=== PATIENT | female | born 1985 | race Caucasian/White ===

== ENCOUNTER 2017-03-28 07:54 | Outpatient (CLI) | payer OTHER | END 2017-03-28 07:55 | disposition critical access hospital (66) | LOC: EMS 07:54 | PROVIDERS: ATTEND Surgery | DX: R06.00 Dyspnea, unspecified (principal); R50.9 Fever, unspecified; R11.2 Nausea with vomiting, unspecified; R19.7 Diarrhea, unspecified | CPT/HCPCS: A0425; A0429 ==

== ENCOUNTER 2017-03-28 08:15 | Emergency (ER) | payer OTHER ==
[2017-03-28] MEDS ORDERED: ACETAMINOPHEN 325 MG TABLET PO STA (08:27)
[2017-03-28] MEDS ORDERED: ALBUTEROL NEB 2.5 MG/3 ML INH STA ×2 (08:27→12:00)
[2017-03-28] MEDS ORDERED: ONDANSETRON ODT 4 MG TABLET TL STA (08:27)
--- NOTE | 2017-03-28 08:43 | ED Physician Documentation ---
History of Present Illness - Stated complaint Stated Complaint: SOA - Chief complaint Chief Complaint: General - Additonal information Additional information: hx from pt 31 f to ER with fever myalgias cough soa NVD no sick contacts no travel denies preg Review of Systems Constitutional: reports: Fever, Chills, Myalgias Cardiac: reports: Chest pain / pressure (with cough) Respiratory: reports: Dyspnea, Cough (productive), Wheezing GI: reports: Abdominal Pain (LUQ with cough), Nausea, Vomiting, Diarrhea : denies: Now EGA Endocrine: denies: Easy bruising / bleeding Immunocompromised: denies: Immunocompromised PD PAST MEDICAL HISTORY - Past Medical History Past Medical History: Yes Respiratory: Asthma Neuro: Seizure disorder Musculoskeletal: Other Other Past Medical History: posteral orthostatic tachycardia syndrome. Lenny Danlos - Past Surgical History Past Surgical History: Yes General: Cholecystectomy - Present Medications Home Medications: Ambulatory Orders Medication Instructions Recorded Confirmed Gabapentin 1 tab PO DAILY 12/13/16 03/28/17 Trazodone HCl 1 tab PO QPM 12/13/16 03/28/17 Albuterol Sulfate [Proair Hfa 2 puffs INH Q4H PRN #1 inhaler 03/28/17 Inhaler] Azithromycin [Zithromax] 250 mg PO DAILY #6 tablet 03/28/17 Benzonatate [Tessalon] 100 mg PO TID PRN #20 capsule 03/28/17 guaiFENesin/DEXTROMETHORPHAN 10 ml PO Q6H PRN #120 ml 03/28/17 [Robitussin Dm] - Allergies Allergies/Adverse Reactions: Allergies Allergy/AdvReac Type Severity Reaction Status Date / Time ibuprofen Allergy Edema Verified 12/13/16 19:48 peanut Allergy Anaphylaxis Verified 03/28/17 08:23 pineapple Allergy Rash Verified 03/28/17 08:23 - Social History Does the pt smoke?: Yes Smoking Status: Current every day smoker Does the pt drink ETOH?: No Does the pt have substance abuse?: No - Immunizations Immunizations are current?: Yes - POLST Patient has POLST: No PD ED PE NORMAL - Vitals Vital signs reviewed: Yes - General General: Alert and oriented X 3 - HEENT HEENT: PERRL, Ears normal (mostly occluded with cerumen vis portions benign), Pharynx benign - Neck Neck: Supple, no meningeal sign - Cardiac Cardiac: RRR - Respiratory Respiratory: Other (ronchi and wheeze on L) - Abdomen Abdomen: Soft, Other (mild LUQ TTP s peritoneal signs) - Derm Derm: Normal color - Extremities Extremities: No edema, No calf tenderness / cord - Neuro Neuro: Alert and oriented X 3 Results - Vitals Vitals: Vital Signs - 24 hr 03/28/17 03/28/17 03/28/17 08:19 08:45 09:21 Temperature 36.7 C 36.6 C Heart Rate 103 H 84 96 Respiratory 18 20 18 Rate Blood Pressure 109/91 H 95/63 O2 Saturation 96 98 03/28/17 03/28/17 10:15 11:58 Temperature 36.9 C Heart Rate 103 H 84 Respiratory 18 20 Rate Blood Pressure 116/76 120/78 O2 Saturation 99 98 Oxygen O2 Source Room air - Labs Labs: Laboratory Tests 03/28/17 08:45 Influenza A (Rapid) Negative Influenza B (Rapid) Negative Influenza Types A,B Ag - - Rads (name of study) CXR Radiology: See rad report (NACPD) PD MEDICAL DECISION MAKING - ED course ED course: neg flu neg CXR but on rpt exam still with focal ronchi mid L lung - clincally has pna so will tx for same was better after neb but long wait in ED today and sx returned will give another neb recognise that pt has connective tissue dz and is at risk for dissection ect but this CP is clearly related to her URI sx and I do not think she needs a CTA Departure - Departure Disposition: 01 Home, Self Care Clinical Impression: Pneumonia Qualifiers: Pneumonia type: due to unspecified organism Laterality: left Lung location: upper lobe of lung Qualified Code(s): J18.1 - Lobar pneumonia, unspecified organism Condition: Good Instructions: ED Pneumonia Adult Follow-Up: Joyce Gonzales MD [Emergency Provider] - Prescriptions: Albuterol Sulfate [Proair Hfa Inhaler] 2 puffs INH Q4H PRN #1 inhaler PRN Reason: Shortness Of Air/Wheezing Azithromycin [Zithromax] 250 mg PO DAILY #6 tablet Benzonatate [Tessalon] 100 mg PO TID PRN #20 capsule PRN Reason: to ease cough guaiFENesin/DEXTROMETHORPHAN [Robitussin Dm] 10 ml PO Q6H PRN #120 ml PRN Reason: Cough Comments: The flu swabs were negative The chest xray does not show pneumonia but on exam you certainly sound like you have pneumonia so I have prescribed antibiotics I also prescribed cough medication and an inhaler You can take tylenol for pain and fever Please follow up with your PMD if not better by Sunday Return to the ER sooner if worse Forms: Activity restrictions
--- NOTE | 2017-03-28 08:56 | XRAY Report ---
EXAM: CHEST RADIOGRAPHY EXAM DATE: 03/28/2017 08:47 AM. CLINICAL HISTORY: Fever, cough. COMPARISON: None. TECHNIQUE: 2 views. FINDINGS: Lungs/Pleura: No focal opacities evident. No pleural effusion. No pneumothorax. Normal volumes. Mediastinum: Heart and mediastinal contours are unremarkable. Other: None. IMPRESSION: 1. Normal 2-view chest radiography. 2. No consolidation evident. [facility] Referring Provider Line: [phone] SITE ID: [id number]
[2017-03-28 11:59] VITALS: BP 120/78
[2017-03-28] MEDS ORDERED: AZITHROMYCIN 100 MG/5 ML SYRINGE PO STA (12:00)
[2017-03-28] MEDS ORDERED: guaiFENesin/DEXTROMETHORPHAN 10 ML UDC PO STA (12:00)
[2017-03-28] MEDS ORDERED: BENZONATATE 100 MG CAPSULE PO STA (12:00)
[2017-03-28] MEDS ORDERED: AZITHROMYCIN 250 MG TABLET PO STA (12:00)
== END 2017-03-28 12:27 | disposition home or self-care (01) ==
LOC: EDUNIT# → EDBD → ED 08:15
DX: J18.9 Pneumonia, unspecified organism (principal); J45.909 Unspecified asthma, uncomplicated; Q79.6 Ehlers-Danlos syndromes; F17.200 Nicotine dependence, unspecified, uncomplicated
CPT/HCPCS: 71046; 87275; 87276; 94640; 94664; 99283; A9270; J7613; Q0162

== ENCOUNTER 2017-05-27 19:28 | Outpatient (CLI) | payer OTHER | END 2017-05-27 19:29 | disposition critical access hospital (66) | LOC: EMS 19:28 → EDUNIT# 19:28 → EMS 19:29 | PROVIDERS: ATTEND Surgery | DX: R07.9 Chest pain, unspecified (principal) | CPT/HCPCS: A0425; A0427 ==

== ENCOUNTER 2017-05-27 20:07 | Emergency (ER) | payer OTHER ==
[2017-05-27] MEDS ORDERED: MORPHINE 2 MG/ML SYRINGE IVP STA ×2 (20:24→21:31)
--- NOTE | 2017-05-27 20:36 | ED Physician Documentation ---
PD HPI CHEST PAIN - Stated complaint Stated Complaint: CP - Chief complaint Chief Complaint: Cardiac - History obtained from History obtained from: Patient - History of Present Illness Timing - onset: Other (31-year-old with history of Lenny Danlos syndrome and some other vascular issues such as carotid stenosis presents with chest pain that radiates to the left shoulder and back since 8 AM this morning that started at rest. It is severe at times. She is short of breath and nauseous with it. She had a similar episode about 3 months ago that was much milder and self-limited.) Review of Systems Ten Systems: 10 systems reviewed and negative Constitutional: denies: Fever, Chills Nose: denies: Rhinorrhea / runny nose, Congestion Throat: denies: Sore throat Cardiac: reports: Chest pain / pressure. denies: Palpitations, Pedal edema, Calf pain Respiratory: reports: Dyspnea. denies: Cough, Hemoptysis, Wheezing PD PAST MEDICAL HISTORY - Past Medical History Respiratory: Asthma Neuro: Seizure disorder Musculoskeletal: Other Other Past Medical History: Polycythemia, PID, Carotid stenosis - Past Surgical History Past Surgical History: Yes General: Cholecystectomy - Present Medications Home Medications: Ambulatory Orders Medication Instructions Recorded Confirmed Gabapentin 1,600 mg PO BID 12/13/16 03/28/17 Trazodone HCl 100 tab PO QPM 12/13/16 03/28/17 Albuterol Sulfate [Proair Hfa 2 puffs INH Q4H PRN #1 inhaler 03/28/17 Inhaler] Oxycodone HCl/Acetaminophen 1 - 2 tab PO Q4H PRN #10 tablet 05/27/17 [Percocet 5-325 mg Tablet] - Allergies Allergies/Adverse Reactions: Allergies Allergy/AdvReac Type Severity Reaction Status Date / Time hydrocodone Allergy Unknown Verified 05/27/17 20:22 ibuprofen Allergy Edema Verified 12/13/16 19:48 metronidazole Allergy Unknown Verified 05/27/17 20:22 peanut Allergy Anaphylaxis Verified 03/28/17 08:23 pineapple Allergy Rash Verified 03/28/17 08:23 - Social History Does the pt smoke?: Yes Smoking Status: Current every day smoker Does the pt drink ETOH?: No Does the pt have substance abuse?: No - Family History Family history: reports: Non contributory - Immunizations Immunizations are current?: Yes - POLST Patient has POLST: No PD ED PE NORMAL - Vitals Vital signs reviewed: Yes - General General: Alert and oriented X 3, Other (She appears uncomfortable) - HEENT HEENT: PERRL, EOMI - Neck Neck: Supple, no meningeal sign, No bony TTP - Cardiac Cardiac: RRR, No murmur, Other (She is tender to the left chest wall) - Respiratory Respiratory: No respiratory distress, Clear bilaterally - Abdomen Abdomen: Normal bowel sounds, Soft, Non tender - Back Back: No CVA TTP, No spinal TTP - Derm Derm: Normal color, Warm and dry - Extremities Extremities: No edema, No calf tenderness / cord - Neuro Neuro: Alert and oriented X 3, Normal speech - Psych Psych: Normal mood, Normal affect Results - Vitals Vitals: Vital Signs - 24 hr 05/27/17 05/27/17 20:07 20:30 Temperature 36.8 C Heart Rate 90 Respiratory 16 Rate Blood Pressure 103/76 Blood Pressure 115/84 H [Left] Blood Pressure 116/75 [Right] O2 Saturation 99 Oxygen O2 Source Room air - EKG (time done) 2009 Rate: Rate (enter#) (95) Rhythm: NSR [place]: Normal Intervals: Normal [place] QRS: Normal Ischemia: Normal ST segments Computer interpretation: Agree with computer - Labs Labs: Laboratory Tests 05/27/17 05/27/17 05/27/17 20:25 20:25 21:00 WBC 9.8 RBC 4.67 Hgb 14.8 Hct 42.5 MCV 90.9 MCH 31.7 H MCHC 34.9 RDW 11.7 L Plt Count 214 MPV 8.1 Neut # 6.2 Lymph # 2.9 [place] # 0.4 Eos # 0.1 Baso # 0.1 Absolute Nucleated RBC 0.01 Nucleated RBC % 0.1 D-Dimer Sodium Potassium Chloride Carbon Dioxide Anion Gap BUN Creatinine Estimated GFR (MDRD) Glucose Calcium Total Bilirubin AST ALT Alkaline Phosphatase Troponin I Total Protein Albumin Globulin Albumin/Globulin Ratio Lipase Urine Color YELLOW Urine Clarity CLEAR Urine pH 7.0 Ur Specific [place] 1.010 Urine Protein NEGATIVE Urine Glucose (UA) NEGATIVE Urine Ketones NEGATIVE Urine Occult Blood NEGATIVE Urine Nitrite NEGATIVE Urine Bilirubin NEGATIVE Urine Urobilinogen 0.2 (NORMAL) Ur Leukocyte Esterase NEGATIVE Ur Microscopic Review NOT INDICATED Urine Culture Comments NOT INDICATED Urine HCG, Qual NEGATIVE Urine Opiates Screen NEGATIVE Ur Oxycodone Screen NEGATIVE Urine Methadone Screen NEGATIVE Ur Propoxyphene Screen NEGATIVE Ur Barbiturates Screen NEGATIVE Ur Tricyclics Screen NEGATIVE Ur Phencyclidine Scrn NEGATIVE Ur Amphetamine Screen NEGATIVE U Methamphetamines Scrn NEGATIVE U Benzodiazepines Scrn NEGATIVE Urine Cocaine Screen NEGATIVE U Cannabinoids Screen POSITIVE H 05/27/17 05/27/17 05/27/17 21:00 21:00 21:00 WBC RBC Hgb Hct MCV MCH MCHC RDW Plt Count MPV Neut # Lymph # [place] # Eos # Baso # Absolute Nucleated RBC Nucleated RBC % D-Dimer < 200.0 L Sodium 139 Potassium 3.2 L Chloride 106 Carbon Dioxide 24 Anion Gap 9.0 BUN 7 Creatinine 0.6 Estimated GFR (MDRD) 117 Glucose 106 H Calcium 9.2 Total Bilirubin 0.8 AST 20 ALT 14 Alkaline Phosphatase 38 L Troponin I < 0.04 Total Protein 7.1 Albumin 4.3 Globulin 2.8 Albumin/Globulin Ratio 1.5 Lipase 34 Urine Color Urine Clarity Urine pH Ur Specific [place] Urine Protein Urine Glucose (UA) Urine Ketones Urine Occult Blood Urine Nitrite Urine Bilirubin Urine Urobilinogen Ur Leukocyte Esterase Ur Microscopic Review Urine Culture Comments Urine HCG, Qual Urine Opiates Screen Ur Oxycodone Screen Urine Methadone Screen Ur Propoxyphene Screen Ur Barbiturates Screen Ur Tricyclics Screen Ur Phencyclidine Scrn Ur Amphetamine Screen U Methamphetamines Scrn U Benzodiazepines Scrn Urine Cocaine Screen U Cannabinoids Screen - Rads (name of study) 2v chest Radiology: EMP read contemporaneously (Normal) PD MEDICAL DECISION MAKING - ED course ED course: This is a 31-year-old with a history of either stainless syndrome as well as some other vascular issues. She has extensive records with her. Her EKG is completely normal. The history of Lenny-Danlos is still somewhat concerning for aortic dissection though, bilateral upper extremity blood pressures were normal. She will also be risk stratified with a upright chest x-ray and d- dimer. Which were also normal. NSAIDS held given ibu allergy Departure - Departure Disposition: 01 Home, Self Care Clinical Impression: Chest wall pain Condition: Good Record reviewed to determine appropriate education?: Yes Instructions: ED Chest Pain Costochondritis Prescriptions: Oxycodone HCl/Acetaminophen [Percocet 5-325 mg Tablet] 1 - 2 tab PO Q4H PRN #10 tablet PRN Reason: Pain Comments: Call your doctor to arrange a follow-up appointment, make the next available appointment. In the interim, return anytime if worse or if new symptoms develop. Your blood pressure was elevated today on check into the emergency department. This does not mean that you have hypertension, it is a common phenomenon to come to the emergency department and have elevated blood pressure. I recommend that you see your primary care physician within the week to have it rechecked when you are feeling better.
[2017-05-27 20:37] LABS: BILIRUBIN,URINE NEGATIVE (NEGATIVE); GLUCOSE, URINE (UA) NEGATIVE (NEGATIVE); KETONES,URINE (UA) NEGATIVE (NEGATIVE); LEUKOCYTE ESTERASE, URINE NEGATIVE (NEGATIVE); NITRITE,URINE NEGATIVE (NEGATIVE); OCCULT BLOOD,URINE NEGATIVE (NEGATIVE); PROTEIN,URINE NEGATIVE (NEGATIVE); UROBILINOGEN,URINE 0.2 (NORMAL) E.U./dL (NORMAL)
[2017-05-27 20:39] LABS: MUDS CUTOFF CONCENTRATIONS CUTOFF CONC BELOW:
[2017-05-27 20:41] LABS: CLARITY,URINE CLEAR (CLEAR); HCG UR QUAL NEGATIVE
[2017-05-27 20:50] LABS: AMPHETAMINE SCREEN,URINE NEGATIVE (NEGATIVE); BENZODIAZEPINES SCREEN, URINE NEGATIVE (NEGATIVE); COCAINE SCREEN URINE NEGATIVE (NEGATIVE); METHADONE SCREEN, URINE NEGATIVE (NEGATIVE); METHAMPHETAMINES SCREEN, URINE NEGATIVE (NEGATIVE); OPIATE SCREEN, URINE NEGATIVE (NEGATIVE); OXYCODONE SCREEN, URINE NEGATIVE (NEGATIVE); PROPOXYPHENE SCREEN, URINE NEGATIVE (NEGATIVE); TRICYCLIC ANTIDEPRESSANT,URINE NEGATIVE (NEGATIVE)
--- NOTE | 2017-05-27 21:00 | XRAY Report ---
EXAM: CHEST RADIOGRAPHY EXAM DATE: 05/27/2017 08:29 PM. CLINICAL HISTORY: Chest pain. COMPARISON: 03/28/2017 chest x-ray. TECHNIQUE: 2 views. FINDINGS: Lungs/Pleura: No focal opacities evident. No pleural effusion. No pneumothorax. Normal volumes. Mediastinum: Heart and mediastinal contours are unremarkable. Other: None. IMPRESSION: Normal 2-view chest radiography. [facility] Referring Provider Line: [phone] SITE ID: [id number]
[2017-05-27 21:11] LABS: BASOPHILS # (AUTO) 0.1 10^3/uL (0.0-0.1); BASOPHILS % (AUTO) 0.9 %; EOSINOPHILS # (AUTO) 0.1 10^3/uL (0.0-0.7); EOSINOPHILS % (AUTO) 0.9 %; HGB - HEMOGLOBIN 14.8 g/dL (12.0-16.0); LYMPHOCYTES # (AUTO) 2.9 10^3/uL (1.5-3.5); MEAN CORPUSCULAR HEMOGLOBIN 31.7 pg (27.0-31.0); MEAN CORPUSCULAR HGB CONC 34.9 g/dL (32.0-36.0); MEAN CORPUSCULAR VOLUME 90.9 fL (81.0-99.0); MEAN PLATELET VOLUME 8.1 fL (7.9-10.8); MONOCYTES # (AUTO) 0.4 10^3/uL (0.0-1.0); MONOCYTES % (AUTO) 4.3 %; NEUTROPHILS # (AUTO) 6.2 10^3/uL (1.5-6.6); NEUTROPHILS % (AUTO) 63.9 %; PLT - PLATELET COUNT 214 10^3/uL (130-450); RED BLOOD COUNT 4.67 10^6/uL (4.20-5.40); RED CELL DISTRIBUTION WIDTH 11.7 % (12.0-15.0); WHITE BLOOD COUNT 9.8 x10^3/uL (4.8-10.8)
[2017-05-27 21:21] LABS: ALBUMIN 4.3 g/dL (3.2-5.5); ALBUMIN/GLOBULIN RATIO 1.5 (1.0-2.2); BILIRUBIN,TOTAL 0.8 mg/dL (0.2-1.0); CALCIUM 9.2 mg/dL (8.5-10.3); CREATININE 0.6 mg/dL (0.4-1.0); TOTAL PROTEIN 7.1 g/dL (6.7-8.2)
[2017-05-27] MEDS ORDERED: KETOROLAC 60 MG/2 ML VIAL IVP STA (21:30)
[2017-05-27 21:56] VITALS: BP 111/78
== END 2017-05-27 21:56 | disposition home or self-care (01) ==
LOC: EDUNIT# → ED 20:07
DX: R07.9 Chest pain, unspecified (principal); R03.0 Elevated blood-pressure reading, without diagnosis of hypertension; Q79.6 Ehlers-Danlos syndromes; I65.29 Occlusion and stenosis of unspecified carotid artery; F17.200 Nicotine dependence, unspecified, uncomplicated
CPT/HCPCS: 36415; 71046; 80053; 80306; 81003; 81025; 83690; 84484; 85025; 85379; 93005; 96374; 96376; 99284; 99285; J2270; 81001; 87086

== ENCOUNTER 2017-05-28 21:01 | Emergency (ER) | payer OTHER ==
[2017-05-28 21:11] VITALS: BP 128/74
[2017-05-28 22:04] LABS: BASOPHILS # (AUTO) 0.1 10^3/uL (0.0-0.1); BASOPHILS % (AUTO) 0.7 %; EOSINOPHILS # (AUTO) 0.2 10^3/uL (0.0-0.7); EOSINOPHILS % (AUTO) 2.3 %; HGB - HEMOGLOBIN 15.2 g/dL (12.0-16.0); LYMPHOCYTES # (AUTO) 3.3 10^3/uL (1.5-3.5); MEAN CORPUSCULAR HGB CONC 34.7 g/dL (32.0-36.0); MONOCYTES # (AUTO) 0.6 10^3/uL (0.0-1.0); MONOCYTES % (AUTO) 6.4 %; NEUTROPHILS # (AUTO) 4.7 10^3/uL (1.5-6.6); NEUTROPHILS % (AUTO) 53.6 %; PLT - PLATELET COUNT 210 10^3/uL (130-450); RED BLOOD COUNT 4.75 10^6/uL (4.20-5.40); WHITE BLOOD COUNT 8.8 x10^3/uL (4.8-10.8)
[2017-05-28 22:20] LABS: ALBUMIN 4.2 g/dL (3.2-5.5); ALBUMIN/GLOBULIN RATIO 1.4 (1.0-2.2); BILIRUBIN,TOTAL 0.6 mg/dL (0.2-1.0); CALCIUM 8.8 mg/dL (8.5-10.3); CREATININE 0.7 mg/dL (0.4-1.0); TOTAL PROTEIN 7.2 g/dL (6.7-8.2)
== END 2017-05-29 00:15 | disposition left against medical advice (07) ==
LOC: EDUNIT# 21:01 → ED 21:01
DX: Z53.21 Procedure and treatment not carried out due to patient leaving prior to being seen by health care provider (principal)
CPT/HCPCS: 36415; 80053; 83690; 85025

== ENCOUNTER 2017-06-05 16:37 | Outpatient (CLI) | payer OTHER | END 2017-06-05 16:38 | disposition critical access hospital (66) | LOC: EMS 16:37 | PROVIDERS: ATTEND Surgery | DX: R07.89 Other chest pain (principal); R00.0 Tachycardia, unspecified; R42 Dizziness and giddiness | CPT/HCPCS: A0425; A0427 ==

== ENCOUNTER 2017-06-05 17:20 | Emergency (ER) | payer OTHER ==
[2017-06-05 17:51] LABS: BASOPHILS # (AUTO) 0.1 10^3/uL (0.0-0.1); EOSINOPHILS # (AUTO) 0.1 10^3/uL (0.0-0.7); EOSINOPHILS % (AUTO) 0.9 %; HGB - HEMOGLOBIN 15.8 g/dL (12.0-16.0); LYMPHOCYTES # (AUTO) 2.5 10^3/uL (1.5-3.5); LYMPHOCYTES % (AUTO) 26.1 %; MEAN CORPUSCULAR HEMOGLOBIN 31.5 pg (27.0-31.0); MEAN CORPUSCULAR HGB CONC 34.8 g/dL (32.0-36.0); MEAN CORPUSCULAR VOLUME 90.6 fL (81.0-99.0); MEAN PLATELET VOLUME 8.2 fL (7.9-10.8); MONOCYTES # (AUTO) 0.4 10^3/uL (0.0-1.0); MONOCYTES % (AUTO) 4.1 %; NEUTROPHILS # (AUTO) 6.5 10^3/uL (1.5-6.6); NEUTROPHILS % (AUTO) 67.9 %; PLT - PLATELET COUNT 265 10^3/uL (130-450); RED BLOOD COUNT 5.01 10^6/uL (4.20-5.40); RED CELL DISTRIBUTION WIDTH 11.7 % (12.0-15.0); WHITE BLOOD COUNT 9.6 x10^3/uL (4.8-10.8)
[2017-06-05 17:55] LABS: VBG PH 7.578 (7.31-7.41); VBG PO2 26.1 mmHg (25-47)
[2017-06-05 17:56] LABS: VBG BASE EXCESS 2.1 mmol/L (-2 - +2); VBG TOTAL CO2 22.6 mmol/L (24-29)
--- NOTE | 2017-06-05 18:05 | ED Physician Documentation ---
PD HPI CHEST PAIN - Stated complaint Stated Complaint: CP - Chief complaint Chief Complaint: Cardiac - History obtained from History obtained from: Patient, EMS - History of Present Illness Timing - onset: Today (She had been to the [employer] [employer] [facility] and she is planned for a Holter monitor. She has pots and a recent diagnosis of costochondritis. She started to feel very odd and started to have chest pressure and then had a brief episode of syncope followed by some shaking which may have been seizure. She does have a history of seizure disorder. She feels back to normal, other than just feeling strange.) Review of Systems Constitutional: reports: Fatigue, Sweats. denies: Fever, Chills Nose: denies: Rhinorrhea / runny nose, Congestion Cardiac: reports: Chest pain / pressure. denies: Palpitations, Pedal edema, Calf pain Respiratory: denies: Dyspnea, Cough PD PAST MEDICAL HISTORY - Past Medical History Past Medical History: Yes Respiratory: Asthma Neuro: Seizure disorder Psych: Depression Musculoskeletal: Other Other Past Medical History: POTS, EDS, carotid stenosis, PID, hypokalemia - Past Surgical History Past Surgical History: Yes General: Cholecystectomy - Present Medications Home Medications: Ambulatory Orders Medication Instructions Recorded Confirmed Gabapentin 1,600 mg PO BID 12/13/16 03/28/17 Trazodone HCl 100 tab PO QPM 12/13/16 06/05/17 Albuterol Sulfate [Proair Hfa 2 puffs INH Q4H PRN #1 inhaler 03/28/17 Inhaler] Fluticasone 44 Mcg [Flovent] 1 puffs INH BID 06/05/17 06/05/17 Levonorgestrel [Mirena] 1 each IY 06/05/17 Naproxen [Naprosyn] 500 mg PO BID 06/05/17 06/05/17 Potassium Chloride [Klor-Con M20] 20 meq PO DAILY 06/05/17 06/05/17 hydrOXYzine PAMOATE [Vistaril] 25 - 50 mg PO QPM 06/05/17 06/05/17 - Allergies Allergies/Adverse Reactions: Allergies Allergy/AdvReac Type Severity Reaction Status Date / Time hydrocodone Allergy Unknown Verified 06/05/17 17:54 ibuprofen Allergy Edema Verified 06/05/17 17:54 metronidazole Allergy Unknown Verified 06/05/17 17:54 peanut Allergy Anaphylaxis Verified 06/05/17 17:54 pineapple Allergy Rash Verified 06/05/17 17:54 - Social History Does the pt smoke?: Yes Smoking Status: Current every day smoker Does the pt drink ETOH?: No Does the pt have substance abuse?: No - Immunizations Immunizations are current?: Yes - POLST Patient has POLST: No PD ED PE NORMAL - Vitals Vital signs reviewed: Yes - General General: Alert and oriented X 3, No acute distress - HEENT HEENT: PERRL, EOMI - Neck Neck: Supple, no meningeal sign, No bony TTP - Cardiac Cardiac: RRR, No murmur - Respiratory Respiratory: No respiratory distress, Clear bilaterally - Abdomen Abdomen: Non tender - Extremities Extremities: No edema, No calf tenderness / cord - Neuro Neuro: Alert and oriented X 3, Normal speech Eye Opening: Spontaneous Motor: Obeys Commands Verbal: Oriented GCS Score: 15 - Psych Psych: Normal mood, Normal affect Results - Vitals Vitals: Vital Signs - 24 hr 06/05/17 06/05/17 06/05/17 17:24 17:59 18:30 Temperature 36.6 C Heart Rate 101 H 84 Respiratory 32 H 18 Rate Blood Pressure 116/69 111/71 Blood Pressure 103/78 [Left] O2 Saturation 100 98 06/05/17 06/05/17 06/06/17 19:00 23:00 05:36 Temperature Heart Rate 85 88 78 Respiratory 18 16 16 Rate Blood Pressure 112/83 H 115/68 118/66 Blood Pressure [Left] O2 Saturation 95 100 99 06/06/17 12:25 Temperature Heart Rate 76 Respiratory 15 Rate Blood Pressure 111/75 Blood Pressure [Left] O2 Saturation 99 Oxygen O2 Source Room air - EKG (time done) 1727 Rate: Rate (enter#) (86) Rhythm: NSR [place]: Normal Intervals: Normal [place] QRS: Normal Ischemia: Normal ST segments Computer interpretation: Agree with computer - Labs Labs: Laboratory Tests 06/05/17 06/05/17 06/05/17 17:35 17:35 17:45 WBC 9.6 RBC 5.01 Hgb 15.8 Hct 45.4 MCV 90.6 MCH 31.5 H MCHC 34.8 RDW 11.7 L Plt Count 265 MPV 8.2 Neut # 6.5 Lymph # 2.5 [place] # 0.4 Eos # 0.1 Baso # 0.1 Absolute Nucleated RBC 0.01 Nucleated RBC % 0.1 VBG pH 7.578 H VBG pCO2 24.0 L VBG pO2 26.1 VBG HCO3 21.9 L VBG Total CO2 22.6 L VBG O2 Saturation 68.4 VBG Base Excess 2.1 H Sodium 138 Potassium 3.5 Chloride 105 Carbon Dioxide 22 Anion Gap 11.0 BUN 10 Creatinine 0.7 Estimated GFR (MDRD) 98 Glucose 103 H Calcium 9.1 Total Bilirubin 0.7 AST 23 ALT 18 Alkaline Phosphatase 41 L Troponin I Total Protein 7.6 Albumin 4.4 Globulin 3.2 Albumin/Globulin Ratio 1.4 Lipase 74 H Urine Color Urine Clarity Urine pH Ur Specific [place] Urine Protein Urine Glucose (UA) Urine Ketones Urine Occult Blood Urine Nitrite Urine Bilirubin Urine Urobilinogen Ur Leukocyte Esterase Ur Microscopic Review Urine Culture Comments Urine HCG, Qual Urine Opiates Screen Ur Oxycodone Screen Urine Methadone Screen Ur Propoxyphene Screen Ur Barbiturates Screen Ur Tricyclics Screen Ur Phencyclidine Scrn Ur Amphetamine Screen U Methamphetamines Scrn U Benzodiazepines Scrn Urine Cocaine Screen U Cannabinoids Screen Ethyl Alcohol 06/05/17 06/05/17 06/05/17 17:45 17:45 18:14 WBC RBC Hgb Hct MCV MCH MCHC RDW Plt Count MPV Neut # Lymph # [place] # Eos # Baso # Absolute Nucleated RBC Nucleated RBC % VBG pH VBG pCO2 VBG pO2 VBG HCO3 VBG Total CO2 VBG O2 Saturation VBG Base Excess Sodium Potassium Chloride Carbon Dioxide Anion Gap BUN Creatinine Estimated GFR (MDRD) Glucose Calcium Total Bilirubin AST ALT Alkaline Phosphatase Troponin I < 0.04 Total Protein Albumin Globulin Albumin/Globulin Ratio Lipase Urine Color YELLOW Urine Clarity CLEAR Urine pH 7.5 Ur Specific [place] 1.010 Urine Protein NEGATIVE Urine Glucose (UA) NEGATIVE Urine Ketones NEGATIVE Urine Occult Blood NEGATIVE Urine Nitrite NEGATIVE Urine Bilirubin NEGATIVE Urine Urobilinogen 0.2 (NORMAL) Ur Leukocyte Esterase NEGATIVE Ur Microscopic Review NOT INDICATED Urine Culture Comments NOT INDICATED Urine HCG, Qual NEGATIVE Urine Opiates Screen Ur Oxycodone Screen Urine Methadone Screen Ur Propoxyphene Screen Ur Barbiturates Screen Ur Tricyclics Screen Ur Phencyclidine Scrn Ur Amphetamine Screen U Methamphetamines Scrn U Benzodiazepines Scrn Urine Cocaine Screen U Cannabinoids Screen Ethyl Alcohol < 5.0 06/05/17 Unknown WBC RBC Hgb Hct MCV MCH MCHC RDW Plt Count MPV Neut # Lymph # [place] # Eos # Baso # Absolute Nucleated RBC Nucleated RBC % VBG pH VBG pCO2 VBG pO2 VBG HCO3 VBG Total CO2 VBG O2 Saturation VBG Base Excess Sodium Potassium Chloride Carbon Dioxide Anion Gap BUN Creatinine Estimated GFR (MDRD) Glucose Calcium Total Bilirubin AST ALT Alkaline Phosphatase Troponin I Total Protein Albumin Globulin Albumin/Globulin Ratio Lipase Urine Color Urine Clarity Urine pH Ur Specific [place] Urine Protein Urine Glucose (UA) Urine Ketones Urine Occult Blood Urine Nitrite Urine Bilirubin Urine Urobilinogen Ur Leukocyte Esterase Ur Microscopic Review Urine Culture Comments Urine HCG, Qual Urine Opiates Screen NEGATIVE Ur Oxycodone Screen NEGATIVE Urine Methadone Screen NEGATIVE Ur Propoxyphene Screen NEGATIVE Ur Barbiturates Screen NEGATIVE Ur Tricyclics Screen NEGATIVE Ur Phencyclidine Scrn NEGATIVE Ur Amphetamine Screen NEGATIVE U Methamphetamines Scrn NEGATIVE U Benzodiazepines Scrn NEGATIVE Urine Cocaine Screen NEGATIVE U Cannabinoids Screen POSITIVE H Ethyl Alcohol PD MEDICAL DECISION MAKING - ED course ED course: 31-year-old with an episode that frankly sounds mostly psychiatric to me which is corroborated by signs of hyperventilation on blood gas. On reevaluation at 6 :45 PM she confided to me that she was having suicidal ideation for the last 2 weeks and has no support system here and would like to explore hospitalization for this. Update, June 06, 2017 at 1:45 PM: Social work has been working on the case and she was accepted to [facility] in [place] by Dr. Winkler. [place] were completed. Departure - Departure Disposition: 65 Psych Hosp/Unit DC/Xfer Clinical Impression: Chest wall pain Depression Qualifiers: Depression Type: major depressive disorder Major depression recurrence: recurrent Active/Remission status: currently active Major depression episode severity: severe Psychotic features: without psychotic features Qualified Code(s ): F33.2 - Major depressive disorder, recurrent severe without psychotic features Condition: Stable Forms: Activity restrictions
[2017-06-05 18:12] LABS: ALBUMIN 4.4 g/dL (3.2-5.5); ALBUMIN/GLOBULIN RATIO 1.4 (1.0-2.2); BILIRUBIN,TOTAL 0.7 mg/dL (0.2-1.0); CALCIUM 9.1 mg/dL (8.5-10.3); CREATININE 0.7 mg/dL (0.4-1.0); TOTAL PROTEIN 7.6 g/dL (6.7-8.2)
[2017-06-05 18:26] LABS: BILIRUBIN,URINE NEGATIVE (NEGATIVE); GLUCOSE, URINE (UA) NEGATIVE (NEGATIVE); KETONES,URINE (UA) NEGATIVE (NEGATIVE); LEUKOCYTE ESTERASE, URINE NEGATIVE (NEGATIVE); NITRITE,URINE NEGATIVE (NEGATIVE); OCCULT BLOOD,URINE NEGATIVE (NEGATIVE); PH,URINE 7.5 PH (5.0-7.5); PROTEIN,URINE NEGATIVE (NEGATIVE); UROBILINOGEN,URINE 0.2 (NORMAL) E.U./dL (NORMAL)
[2017-06-05 18:29] LABS: CLARITY,URINE CLEAR (CLEAR); HCG UR QUAL NEGATIVE
[2017-06-05] MEDS ORDERED: LORazepam 2 MG/ML VIAL IVP STA (18:47)
[2017-06-05] MEDS ORDERED: GABAPENTIN 100 MG CAPSULE PO STA (19:10)
[2017-06-05 19:26] LABS: MUDS CUTOFF CONCENTRATIONS CUTOFF CONC BELOW:
[2017-06-05 19:27] LABS: AMPHETAMINE SCREEN,URINE NEGATIVE (NEGATIVE); BENZODIAZEPINES SCREEN, URINE NEGATIVE (NEGATIVE); COCAINE SCREEN URINE NEGATIVE (NEGATIVE); METHADONE SCREEN, URINE NEGATIVE (NEGATIVE); METHAMPHETAMINES SCREEN, URINE NEGATIVE (NEGATIVE); OPIATE SCREEN, URINE NEGATIVE (NEGATIVE); OXYCODONE SCREEN, URINE NEGATIVE (NEGATIVE); PROPOXYPHENE SCREEN, URINE NEGATIVE (NEGATIVE); TRICYCLIC ANTIDEPRESSANT,URINE NEGATIVE (NEGATIVE)
[2017-06-05] MEDS ORDERED: LORazepam 0.5 MG TABLET PO STA (21:26)
[2017-06-05] MEDS ORDERED: traZODone 50 MG TABLET PO STA (21:39)
--- NOTE | 2017-06-06 07:54 | ED Physician Documentation ---
History of Present Illness - Stated complaint Stated Complaint: CP - Chief complaint Chief Complaint: Cardiac PD PAST MEDICAL HISTORY - Past Medical History Past Medical History: Yes Respiratory: Asthma Neuro: Seizure disorder Psych: Depression Musculoskeletal: Other Other Past Medical History: POTS, EDS, carotid stenosis, PID, hypokalemia - Past Surgical History Past Surgical History: Yes General: Cholecystectomy - Present Medications Home Medications: Ambulatory Orders Medication Instructions Recorded Confirmed Gabapentin 1,600 mg PO BID 12/13/16 03/28/17 Trazodone HCl 100 tab PO QPM 12/13/16 06/05/17 Albuterol Sulfate [Proair Hfa 2 puffs INH Q4H PRN #1 inhaler 03/28/17 Inhaler] Fluticasone 44 Mcg [Flovent] 1 puffs INH BID 06/05/17 06/05/17 Levonorgestrel [Mirena] 1 each IY 06/05/17 Naproxen [Naprosyn] 500 mg PO BID 06/05/17 06/05/17 Potassium Chloride [Klor-Con M20] 20 meq PO DAILY 06/05/17 06/05/17 hydrOXYzine PAMOATE [Vistaril] 25 - 50 mg PO QPM 06/05/17 06/05/17 - Allergies Allergies/Adverse Reactions: Allergies Allergy/AdvReac Type Severity Reaction Status Date / Time hydrocodone Allergy Unknown Verified 06/05/17 17:54 ibuprofen Allergy Edema Verified 06/05/17 17:54 metronidazole Allergy Unknown Verified 06/05/17 17:54 peanut Allergy Anaphylaxis Verified 06/05/17 17:54 pineapple Allergy Rash Verified 06/05/17 17:54 - Social History Does the pt smoke?: Yes Smoking Status: Current every day smoker Does the pt drink ETOH?: No Does the pt have substance abuse?: No - Immunizations Immunizations are current?: Yes - POLST Patient has POLST: No Results - Vitals Vitals: Vital Signs - 24 hr 06/05/17 06/06/17 06/06/17 23:00 05:36 12:25 Heart Rate 88 78 76 Respiratory 16 16 15 Rate Blood Pressure 115/68 118/66 111/75 O2 Saturation 100 99 99 Oxygen O2 Source Room air - Labs Labs: Laboratory Tests 06/05/17 06/05/17 06/05/17 17:35 17:35 17:45 WBC 9.6 RBC 5.01 Hgb 15.8 Hct 45.4 MCV 90.6 MCH 31.5 H MCHC 34.8 RDW 11.7 L Plt Count 265 MPV 8.2 Neut # 6.5 Lymph # 2.5 [place] # 0.4 Eos # 0.1 Baso # 0.1 Absolute Nucleated RBC 0.01 Nucleated RBC % 0.1 VBG pH 7.578 H VBG pCO2 24.0 L VBG pO2 26.1 VBG HCO3 21.9 L VBG Total CO2 22.6 L VBG O2 Saturation 68.4 VBG Base Excess 2.1 H Sodium 138 Potassium 3.5 Chloride 105 Carbon Dioxide 22 Anion Gap 11.0 BUN 10 Creatinine 0.7 Estimated GFR (MDRD) 98 Glucose 103 H Calcium 9.1 Total Bilirubin 0.7 AST 23 ALT 18 Alkaline Phosphatase 41 L Troponin I Total Protein 7.6 Albumin 4.4 Globulin 3.2 Albumin/Globulin Ratio 1.4 Lipase 74 H Urine Color Urine Clarity Urine pH Ur Specific [place] Urine Protein Urine Glucose (UA) Urine Ketones Urine Occult Blood Urine Nitrite Urine Bilirubin Urine Urobilinogen Ur Leukocyte Esterase Ur Microscopic Review Urine Culture Comments Urine HCG, Qual Urine Opiates Screen Ur Oxycodone Screen Urine Methadone Screen Ur Propoxyphene Screen Ur Barbiturates Screen Ur Tricyclics Screen Ur Phencyclidine Scrn Ur Amphetamine Screen U Methamphetamines Scrn U Benzodiazepines Scrn Urine Cocaine Screen U Cannabinoids Screen Ethyl Alcohol 06/05/17 06/05/17 06/05/17 17:45 17:45 18:14 WBC RBC Hgb Hct MCV MCH MCHC RDW Plt Count MPV Neut # Lymph # [place] # Eos # Baso # Absolute Nucleated RBC Nucleated RBC % VBG pH VBG pCO2 VBG pO2 VBG HCO3 VBG Total CO2 VBG O2 Saturation VBG Base Excess Sodium Potassium Chloride Carbon Dioxide Anion Gap BUN Creatinine Estimated GFR (MDRD) Glucose Calcium Total Bilirubin AST ALT Alkaline Phosphatase Troponin I < 0.04 Total Protein Albumin Globulin Albumin/Globulin Ratio Lipase Urine Color YELLOW Urine Clarity CLEAR Urine pH 7.5 Ur Specific [place] 1.010 Urine Protein NEGATIVE Urine Glucose (UA) NEGATIVE Urine Ketones NEGATIVE Urine Occult Blood NEGATIVE Urine Nitrite NEGATIVE Urine Bilirubin NEGATIVE Urine Urobilinogen 0.2 (NORMAL) Ur Leukocyte Esterase NEGATIVE Ur Microscopic Review NOT INDICATED Urine Culture Comments NOT INDICATED Urine HCG, Qual NEGATIVE Urine Opiates Screen Ur Oxycodone Screen Urine Methadone Screen Ur Propoxyphene Screen Ur Barbiturates Screen Ur Tricyclics Screen Ur Phencyclidine Scrn Ur Amphetamine Screen U Methamphetamines Scrn U Benzodiazepines Scrn Urine Cocaine Screen U Cannabinoids Screen Ethyl Alcohol < 5.0 06/05/17 Unknown WBC RBC Hgb Hct MCV MCH MCHC RDW Plt Count MPV Neut # Lymph # [place] # Eos # Baso # Absolute Nucleated RBC Nucleated RBC % VBG pH VBG pCO2 VBG pO2 VBG HCO3 VBG Total CO2 VBG O2 Saturation VBG Base Excess Sodium Potassium Chloride Carbon Dioxide Anion Gap BUN Creatinine Estimated GFR (MDRD) Glucose Calcium Total Bilirubin AST ALT Alkaline Phosphatase Troponin I Total Protein Albumin Globulin Albumin/Globulin Ratio Lipase Urine Color Urine Clarity Urine pH Ur Specific [place] Urine Protein Urine Glucose (UA) Urine Ketones Urine Occult Blood Urine Nitrite Urine Bilirubin Urine Urobilinogen Ur Leukocyte Esterase Ur Microscopic Review Urine Culture Comments Urine HCG, Qual Urine Opiates Screen NEGATIVE Ur Oxycodone Screen NEGATIVE Urine Methadone Screen NEGATIVE Ur Propoxyphene Screen NEGATIVE Ur Barbiturates Screen NEGATIVE Ur Tricyclics Screen NEGATIVE Ur Phencyclidine Scrn NEGATIVE Ur Amphetamine Screen NEGATIVE U Methamphetamines Scrn NEGATIVE U Benzodiazepines Scrn NEGATIVE Urine Cocaine Screen NEGATIVE U Cannabinoids Screen POSITIVE H Ethyl Alcohol PD MEDICAL DECISION MAKING - ED course ED course: assumed care 7 AM 06/06 31 female waiting for SW eval re suicidal ideations went to see pt 715 she states she is depressed because she has developed a condition called POTS ( postural orthostatic tachycardia syndrome - has been worked up by cardiology already in [place] and is being followed by cardiology here in [place] now as well) and 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 and she spends most of her time in bed, she is not eating and has lost 60 lb and suffers from low potassium she can't stop smoking marijuana and cigarretes single mother of two - father is in in [facility] and she fears losing custody she has attempted suicide by cutting before and is planning to do the same no HI occ auditory hallucinations would like inpt care she suffers from the medical condition described above as well as seizures and has had some recent dysuria was seen by both cardiology and EMP Dr Aguero yesterday and is medically stable and cleared for mental health eval Exam VS noted awake alert tearful thin RRR CTAB depressed and suicidal with a plan, denies HI, no hallucinations at this times, not delusional, calm cooperative and interactive, makes eye contact pt seen by SW and mehreen and [place] and trasnferred BLS Departure - Departure Disposition: 65 Psych Hosp/Unit DC/Xfer Clinical Impression: Chest wall pain Depression Qualifiers: Depression Type: major depressive disorder Major depression recurrence: recurrent Active/Remission status: currently active Major depression episode severity: severe Psychotic features: without psychotic features Qualified Code(s ): F33.2 - Major depressive disorder, recurrent severe without psychotic features Condition: Stable Forms: Activity restrictions Discharge Date/Time: 06/06/17 16:15
[2017-06-06] MEDS ORDERED: GABAPENTIN 100 MG CAPSULE PO STA (08:11)
[2017-06-06] MEDS ORDERED: GABAPENTIN 400 MG CAPSULE PO STA (09:31)
[2017-06-06 12:26] VITALS: BP 111/75
[2017-06-06] MEDS ORDERED: ONDANSETRON ODT 4 MG TABLET TL STA (12:35)
== END 2017-06-06 16:15 ==
LOC: EDUNIT# → ED 17:20
DX: R07.89 Other chest pain (principal); F33.2 Major depressive disorder, recurrent severe without psychotic features; F17.200 Nicotine dependence, unspecified, uncomplicated
CPT/HCPCS: 36415; 80053; 80306; 80320; 81003; 81025; 82803; 83690; 84484; 85025; 93005; 96374; 99284; A9270; J2060; Q0162; 81001; 87086

== ENCOUNTER 2017-08-17 16:52 | Outpatient (CLI) | payer OTHER | END 2017-08-17 16:53 | disposition critical access hospital (66) | LOC: EMS 16:52 | PROVIDERS: ATTEND Surgery | DX: R10.12 Left upper quadrant pain (principal) | CPT/HCPCS: A0425; A0429 ==

== ENCOUNTER 2017-08-17 17:15 | Emergency (ER) | payer OTHER ==
[2017-08-17 17:25] VITALS: BP 121/82
[2017-08-17] MEDS ORDERED: ONDANSETRON 4 MG/2 ML VIAL IVP STA (17:33)
[2017-08-17] MEDS ORDERED: MORPHINE 10 MG/ML VIAL IVP STA (17:33)
--- NOTE | 2017-08-17 17:34 | ED Physician Documentation ---
PD HPI ABD PAIN - Stated complaint Stated Complaint: ABD PX - Chief complaint Chief Complaint: Abd Pain - History obtained from History obtained from: Patient, EMS - History of Present Illness Timing - onset: Today (She was diagnosed with celiac disease a few weeks ago and had been gluten-free, she has been having on-and-off diarrhea and vomiting this last week and sore throat radiating to both ears but that got seen by her physician for and had a rapid strep test that was negative. Starting today after eating 3 slices of pizza she developed left lower quadrant pain almost immediately.) Review of Systems Ten Systems: 10 systems reviewed and negative Constitutional: denies: Fever, Chills Throat: reports: Sore throat Cardiac: denies: Chest pain / pressure, Palpitations Respiratory: denies: Dyspnea, Cough PD PAST MEDICAL HISTORY - Past Medical History Respiratory: Asthma Endocrine/Autoimmune: Other Psych: Depression, Bipolar disorder Musculoskeletal: Other - Past Surgical History Past Surgical History: Yes General: Cholecystectomy - Present Medications Home Medications: Ambulatory Orders Medication Instructions Recorded Confirmed Gabapentin 1,600 mg PO BID 12/13/16 03/28/17 Trazodone HCl 100 tab PO QPM 12/13/16 06/05/17 Albuterol Sulfate [Proair Hfa 2 puffs INH Q4H PRN #1 inhaler 03/28/17 Inhaler] Fluticasone 44 Mcg [Flovent] 1 puffs INH BID 06/05/17 06/05/17 Levonorgestrel [Mirena] 1 each IY 06/05/17 Naproxen [Naprosyn] 500 mg PO BID 06/05/17 06/05/17 hydrOXYzine PAMOATE [Vistaril] 25 - 50 mg PO QPM 06/05/17 06/05/17 Albuterol Sulfate [Proair Hfa 8.5 gm IH 08/17/17 Inhaler] Duloxetine HCl 20 mg PO 08/17/17 Fluticasone 44 Mcg [Flovent] 08/17/17 Gentamicin 0.3% Ophth Drops 75 drops OPTH 08/17/17 [Garamycin] - Allergies Allergies/Adverse Reactions: Allergies Allergy/AdvReac Type Severity Reaction Status Date / Time gluten Allergy Cramps Verified 08/17/17 17:24 hydrocodone Allergy Unknown Verified 06/05/17 17:54 ibuprofen Allergy Edema Verified 06/05/17 17:54 metronidazole Allergy Unknown Verified 08/17/17 17:24 peanut Allergy Anaphylaxis Verified 06/05/17 17:54 pineapple Allergy Rash Verified 06/05/17 17:54 - Social History Does the pt smoke?: Yes Smoking Status: Current every day smoker Does the pt drink ETOH?: No Does the pt have substance abuse?: No - Immunizations Immunizations are current?: Yes - POLST Patient has POLST: No PD ED PE NORMAL - Vitals Vital signs reviewed: Yes - General General: Alert and oriented X 3, No acute distress - HEENT HEENT: PERRL, EOMI, Pharynx benign - Neck Neck: Supple, no meningeal sign, No bony TTP, No adenopathy - Cardiac Cardiac: RRR, No murmur - Respiratory Respiratory: No respiratory distress, Clear bilaterally - Abdomen Abdomen: Other (Mild tenderness in the left lower quadrant without surgical signs, normal bowel tones.) - Extremities Extremities: No deformity, No tenderness to palpate - Neuro Neuro: Alert and oriented X 3, Normal speech Results - Vitals Vitals: Vital Signs - 24 hr 08/17/17 08/17/17 17:19 20:23 Temperature 37.1 C Heart Rate 86 Respiratory 18 16 Rate Blood Pressure 121/82 H O2 Saturation 98 Oxygen O2 Source Room air - Labs Labs: Laboratory Tests 08/17/17 08/17/17 08/17/17 17:55 17:55 18:55 WBC 6.2 RBC 4.45 Hgb 14.5 Hct 41.2 MCV 92.6 MCH 32.5 H MCHC 35.1 RDW 12.5 Plt Count 213 MPV 8.5 Neut # (Auto) 3.2 Lymph # (Auto) 2.2 [place] # (Auto) 0.5 Eos # (Auto) 0.1 Baso # (Auto) 0.1 Absolute Nucleated RBC 0.00 Nucleated RBC % 0.0 Sodium 138 Potassium 3.2 L Chloride 102 Carbon Dioxide 28 Anion Gap 8.0 BUN 14 Creatinine 0.9 Estimated GFR (MDRD) 74 L Glucose 115 H Calcium 8.8 Total Bilirubin 1.1 H AST 20 ALT 12 Alkaline Phosphatase 46 Total Protein 6.9 Albumin 3.9 Globulin 3.0 Albumin/Globulin Ratio 1.3 Lipase 46 Urine Color YELLOW Urine Clarity CLEAR Urine pH 6.0 Ur Specific [place] <=1.005 Urine Protein NEGATIVE Urine Glucose (UA) NEGATIVE Urine Ketones NEGATIVE Urine Occult Blood NEGATIVE Urine Nitrite NEGATIVE Urine Bilirubin NEGATIVE Urine Urobilinogen 0.2 (NORMAL) Ur Leukocyte Esterase NEGATIVE Ur Microscopic Review NOT INDICATED Urine Culture Comments NOT INDICATED Urine HCG, Qual NEGATIVE PD MEDICAL DECISION MAKING - ED course ED course: 31-year-old woman with celiac disease presents with acute onset left lower quadrant pain after eating 3 slices of pizza just prior to arrival. She was mildly tender in the left lower quadrant. Her diagnostics were within normal limits including a CT. She was advised to stop eating gluten. She has follow- up with her specialists arranged. See downtime charting for discharge instructions and prescriptions. Briefly she did get a prescription for Vicodin, Zofran, and prednisone. She received dexamethasone here in addition to pain medication. - Sepsis Event Vital Signs: Vital Signs - 24 hr 08/17/17 08/17/17 17:19 20:23 Temperature 37.1 C Heart Rate 86 Respiratory 18 16 Rate Blood Pressure 121/82 H O2 Saturation 98 Oxygen O2 Source Room air Departure - Departure Disposition: 01 Home, Self Care Clinical Impression: Abdominal pain Condition: Stable Discharge Date/Time: 08/17/17 20:23
[2017-08-17 18:07] LABS: BASOPHILS # (AUTO) 0.1 10^3/uL (0.0-0.1); BASOPHILS % (AUTO) 1.2 %; EOSINOPHILS # (AUTO) 0.1 10^3/uL (0.0-0.7); EOSINOPHILS % (AUTO) 2.1 %; HGB - HEMOGLOBIN 14.5 g/dL (12.0-16.0); LYMPHOCYTES # (AUTO) 2.2 10^3/uL (1.5-3.5); LYMPHOCYTES % (AUTO) 36.3 %; MEAN CORPUSCULAR HEMOGLOBIN 32.5 pg (27.0-31.0); MEAN CORPUSCULAR HGB CONC 35.1 g/dL (32.0-36.0); MEAN CORPUSCULAR VOLUME 92.6 fL (81.0-99.0); MEAN PLATELET VOLUME 8.5 fL (7.9-10.8); MONOCYTES # (AUTO) 0.5 10^3/uL (0.0-1.0); NEUTROPHILS # (AUTO) 3.2 10^3/uL (1.5-6.6); NEUTROPHILS % (AUTO) 52.4 %; PLT - PLATELET COUNT 213 10^3/uL (130-450); RED BLOOD COUNT 4.45 10^6/uL (4.20-5.40); RED CELL DISTRIBUTION WIDTH 12.5 % (12.0-15.0); WHITE BLOOD COUNT 6.2 x10^3/uL (4.8-10.8)
[2017-08-17 18:20] LABS: ALBUMIN 3.9 g/dL (3.2-5.5); ALBUMIN/GLOBULIN RATIO 1.3 (1.0-2.2); BILIRUBIN,TOTAL 1.1 mg/dL (0.2-1.0); CALCIUM 8.8 mg/dL (8.5-10.3); CREATININE 0.9 mg/dL (0.4-1.0); TOTAL PROTEIN 6.9 g/dL (6.7-8.2)
[2017-08-17] MEDS ORDERED: IOPAMIDOL-300 100 ML VIAL ONE (18:42)
[2017-08-17] MEDS ORDERED: IOPAMIDOL-300 100 ML VIAL IVP ONE (18:53)
[2017-08-17 19:04] LABS: BILIRUBIN,URINE NEGATIVE (NEGATIVE); GLUCOSE, URINE (UA) NEGATIVE (NEGATIVE); KETONES,URINE (UA) NEGATIVE (NEGATIVE); LEUKOCYTE ESTERASE, URINE NEGATIVE (NEGATIVE); NITRITE,URINE NEGATIVE (NEGATIVE); OCCULT BLOOD,URINE NEGATIVE (NEGATIVE); PROTEIN,URINE NEGATIVE (NEGATIVE); UROBILINOGEN,URINE 0.2 (NORMAL) E.U./dL (NORMAL)
[2017-08-17 19:09] LABS: CLARITY,URINE CLEAR (CLEAR)
[2017-08-17 19:13] LABS: HCG UR QUAL NEGATIVE
--- NOTE | 2017-08-17 19:19 | CT Report ---
Procedure Date: 08/17/2017 Accession Number: [id number] / [id number] Procedure: CT - Abdomen/Pelvis W/ CPT Code: FULL RESULT: EXAM: CT ABDOMEN AND PELVIS EXAM DATE: 08/17/2017 06:38 PM. CLINICAL HISTORY: Left lower abdominal pain today. Celiac disease. Vomiting and diarrhea for one week. COMPARISONS: Pelvic ultrasound 12/13/2016. TECHNIQUE: Routine helical CT imaging was performed through the abdomen and pelvis. IV contrast: 100 ML ISOVUE 300. Enteric contrast: No. Reconstructions: Coronal and sagittal. In accordance with CT protocol optimization, one or more of the following dose reduction techniques were utilized for this exam: automated exposure control, adjustment of mA and/or KV based on patient size, or use of iterative reconstructive technique. FINDINGS: Lung Bases: Unremarkable. Liver: Normal. No masses. Gallbladder/Bile Ducts: Gallbladder surgically absent. No ductal dilatation. Spleen: Normal. Pancreas: Normal. Adrenal Glands: Normal. Kidneys: Normal. No masses or hydronephrosis. Peritoneal Cavity/Bowel: Fluid in the stomach without abnormal distention. Unopacified small bowel loops are nondilated. The appendix is not identified and may be surgically absent. There is no significant formed stool in the colon. There is no gabrielle colonic wall thickening. There is minimal descending and sigmoid colon diverticulosis. There is no focal pericolonic fat stranding. There is no lymphadenopathy, ascites, or pneumoperitoneum. Pelvic Organs: Bladder is unremarkable. IUD is in the expected position. Ovaries are not enlarged. There is a 1.4 cm rounded hypodensity in the left ovary suggesting a dominant follicle. Vasculature: Prominent parametrial and ovarian veins left greater than right without evidence of thrombosis. Otherwise unremarkable. Bones: No significant abnormality. Other: Abdominal wall is unremarkable. IMPRESSION: Negative CT abdomen and pelvis. No abnormal bowel dilation. No inflammatory change. RADIA
[2017-08-17] MEDS ORDERED: ONDANSETRON 4 MG/2 ML VIAL ONE (20:08)
[2017-08-17] MEDS ORDERED: DEXAMETHASONE 10 MG/ML VIAL ONE (20:14)
== END 2017-08-17 20:23 | disposition home or self-care (01) ==
LOC: EDUNIT# → ED 17:15
DX: R10.32 Left lower quadrant pain (principal); K90.0 Celiac disease; F17.200 Nicotine dependence, unspecified, uncomplicated; J45.909 Unspecified asthma, uncomplicated; F31.9 Bipolar disorder, unspecified
CPT/HCPCS: 36415; 74177; 80053; 81003; 81025; 83690; 85025; 96374; 99283; Q9967; 81001; 87086

== ENCOUNTER 2017-08-21 22:13 | Emergency (ER) | payer OTHER ==
--- NOTE | 2017-08-22 00:35 | ED Physician Documentation ---
PD HPI ABD PAIN - Stated complaint Stated Complaint: ABD PX - Chief complaint Chief Complaint: Abd Pain - History obtained from History obtained from: Patient - History of Present Illness Timing - onset: How many days ago (4-5) Timing - duration: Days Timing - details: Abrupt onset, Waxing and waning Pain level now: 5 Quality: Cramping, Pain Location: LUQ, LLQ Radiation: Other (no radiation) Improved by: Other (no ameliorating factors) Worsened by: Eating Associated symptoms: Nausea, Vomiting Recently seen: Clinic, Emergency Dept - Additional information Additional information: c/o abdominal pain, predominantly after PO intake, 4-5 days. Was T+R from this ED 08/17 after nondiagnostic w/u (including CT A/P). She has had similar episodes in the past, which recently led to diagnosis of celiac disease. Yesterday, patient was seen by PMD in f/u setting and plan is to f/u with GI for upper and lower endoscopy (patient says she has had these in the past). She presents at this time due to ongoing abdominal pain. Has been taking prednisone, vicodin, and zofran as prescribed on last ED visit but inadequate relief with these medications. Review of Systems Constitutional: denies: Fever, Chills, Sweats Cardiac: reports: Reviewed and negative Respiratory: reports: Reviewed and negative GI: reports: Abdominal Pain, Nausea, Vomiting. denies: Constipation, Diarrhea : denies: Dysuria, Frequency, Now EGA PD PAST MEDICAL HISTORY - Past Medical History Past Medical History: Yes Respiratory: Asthma Endocrine/Autoimmune: Other Psych: Depression, Bipolar disorder Musculoskeletal: Other Other Past Medical History: POTS, EDS - Past Surgical History Past Surgical History: Yes General: Cholecystectomy, Appendectomy - Present Medications Home Medications: Ambulatory Orders Medication Instructions Recorded Confirmed Gabapentin 1,600 mg PO BID 12/13/16 03/28/17 Trazodone HCl 100 tab PO QPM 12/13/16 06/05/17 Albuterol Sulfate [Proair Hfa 2 puffs INH Q4H PRN #1 inhaler 03/28/17 Inhaler] Fluticasone 44 Mcg [Flovent] 1 puffs INH BID 06/05/17 06/05/17 Levonorgestrel [Mirena] 1 each IY 06/05/17 Naproxen [Naprosyn] 500 mg PO BID 06/05/17 06/05/17 hydrOXYzine PAMOATE [Vistaril] 25 - 50 mg PO QPM 06/05/17 06/05/17 Albuterol Sulfate [Proair Hfa 8.5 gm IH 08/17/17 Inhaler] Duloxetine HCl 20 mg PO 08/17/17 Fluticasone 44 Mcg [Flovent] 08/17/17 Gentamicin 0.3% Ophth Drops 75 drops OPTH 08/17/17 [Garamycin] Omeprazole [PriLOSEC] 20 mg PO DAILY #14 capsule 08/22/17 Promethazine [Phenergan] 25 - 50 mg PO Q6H PRN #10 tab 08/22/17 traMADol [Ultram] 50 - 100 mg PO Q4-6H PRN #20 tablet 08/22/17 - Allergies Allergies/Adverse Reactions: Allergies Allergy/AdvReac Type Severity Reaction Status Date / Time gluten Allergy Cramps Verified 08/17/17 17:24 hydrocodone Allergy Unknown Verified 06/05/17 17:54 ibuprofen Allergy Edema Verified 06/05/17 17:54 metronidazole Allergy Unknown Verified 08/17/17 17:24 peanut Allergy Anaphylaxis Verified 06/05/17 17:54 pineapple Allergy Rash Verified 06/05/17 17:54 - Social History Does the pt smoke?: Yes Smoking Status: Current every day smoker Does the pt drink ETOH?: No Does the pt have substance abuse?: No - Immunizations Immunizations are current?: Yes - POLST Patient has POLST: No PD ED PE NORMAL - Vitals Vital signs reviewed: Yes - General General: Alert and oriented X 3, No acute distress, Well developed/nourished - HEENT HEENT: Moist mucous membranes - Cardiac Cardiac: RRR, No murmur - Respiratory Respiratory: No respiratory distress, Clear bilaterally - Abdomen Abdomen: Normal bowel sounds, Soft, Non tender, Non distended - Back Back: No CVA TTP - Derm Derm: Normal color, Warm and dry, No rash Results - Vitals Vitals: Vital Signs - 24 hr 08/22/17 08/22/17 01:31 03:00 Heart Rate 56 L 52 L Respiratory 16 16 Rate Blood Pressure 107/69 102/65 O2 Saturation 99 98 Oxygen O2 Source Room air - Labs Labs: Laboratory Tests 08/22/17 08/22/17 01:10 01:10 WBC 14.0 H RBC 4.46 Hgb 14.5 Hct 41.9 MCV 93.8 MCH 32.6 H MCHC 34.7 RDW 12.7 Plt Count 221 MPV 8.7 Neut # (Auto) 12.4 H Lymph # (Auto) 1.0 L [place] # (Auto) 0.5 Eos # (Auto) 0.0 Baso # (Auto) 0.1 Absolute Nucleated RBC 0.01 Nucleated RBC % 0.0 Sodium 137 Potassium 3.9 Chloride 98 L Carbon Dioxide 32 Anion Gap 7.0 BUN 13 Creatinine 0.9 Estimated GFR (MDRD) 74 L Glucose 133 H Calcium 8.9 Total Bilirubin 0.5 AST 15 ALT 19 Alkaline Phosphatase 39 L Total Protein 7.1 Albumin 4.0 Globulin 3.1 Albumin/Globulin Ratio 1.3 Lipase 35 PD MEDICAL DECISION MAKING - ED course Complexity details: reviewed results, re-evaluated patient, considered differential, d/w patient ED course: No significant tenderness on abdominal exam. Mild leukocytosis but otherwise unremarkable results; leukocytosis could be from the recently prescribed steroids. She reported adequate symptom relief with phenergan and morphine. GI cocktail given, although she did not report any significant improvement with this. - Sepsis Event Vital Signs: Vital Signs - 24 hr 08/22/17 08/22/17 01:31 03:00 Heart Rate 56 L 52 L Respiratory 16 16 Rate Blood Pressure 107/69 102/65 O2 Saturation 99 98 Oxygen O2 Source Room air Departure - Departure Disposition: 01 Home, Self Care Clinical Impression: Abdominal pain Qualifiers: Abdominal location: left upper quadrant Qualified Code(s): R10.12 - Left upper quadrant pain Condition: Good Instructions: ED Abdominal Pain Unkn Cause Follow-Up: Benny Lee MD [Primary Care Provider] - (Call to arrange for next available appointment) Prescriptions: Omeprazole [PriLOSEC] 20 mg PO DAILY #14 capsule Promethazine [Phenergan] 25 - 50 mg PO Q6H PRN #10 tab PRN Reason: Nausea / Vomiting traMADol [Ultram] 50 - 100 mg PO Q4-6H PRN #20 tablet PRN Reason: Pain Discharge Date/Time: 08/22/17 03:07
[2017-08-22] MEDS ORDERED: SODIUM CHLORIDE 0.9% 1,000 ML IV STA (01:00)
[2017-08-22] MEDS ORDERED: MAG HYDROX/AL HYDROX/SIMETH 30 ML UDC PO STA (01:01)
[2017-08-22] MEDS ORDERED: MORPHINE 10 MG/ML VIAL IVP STA (01:01)
[2017-08-22] MEDS ORDERED: LIDOCAINE VISCOUS 2% 15 ML UDC MM STA (01:02)
[2017-08-22] MEDS ORDERED: PROMETHAZINE INJ 25 MG in SODIUM CHLORIDE 0.9% 50 ML IV STA (01:02)
[2017-08-22] MEDS ORDERED: PHENobarb/HYOSCY/ATROPINE/SCOP 5 ML UDC PO STA (01:02)
[2017-08-22 01:22] LABS: BASOPHILS # (AUTO) 0.1 10^3/uL (0.0-0.1); BASOPHILS % (AUTO) 0.9 %; EOSINOPHILS % (AUTO) 0.1 %; HGB - HEMOGLOBIN 14.5 g/dL (12.0-16.0); LYMPHOCYTES % (AUTO) 7.4 %; MEAN CORPUSCULAR HEMOGLOBIN 32.6 pg (27.0-31.0); MEAN CORPUSCULAR HGB CONC 34.7 g/dL (32.0-36.0); MEAN CORPUSCULAR VOLUME 93.8 fL (81.0-99.0); MEAN PLATELET VOLUME 8.7 fL (7.9-10.8); MONOCYTES # (AUTO) 0.5 10^3/uL (0.0-1.0); MONOCYTES % (AUTO) 3.2 %; NEUTROPHILS # (AUTO) 12.4 10^3/uL (1.5-6.6); NEUTROPHILS % (AUTO) 88.4 %; PLT - PLATELET COUNT 221 10^3/uL (130-450); RED BLOOD COUNT 4.46 10^6/uL (4.20-5.40); RED CELL DISTRIBUTION WIDTH 12.7 % (12.0-15.0)
[2017-08-22 01:30] LABS: ALBUMIN/GLOBULIN RATIO 1.3 (1.0-2.2); BILIRUBIN,TOTAL 0.5 mg/dL (0.2-1.0); CALCIUM 8.9 mg/dL (8.5-10.3); CREATININE 0.9 mg/dL (0.4-1.0); TOTAL PROTEIN 7.1 g/dL (6.7-8.2)
[2017-08-22 03:06] VITALS: BP 102/65
== END 2017-08-22 03:07 | disposition home or self-care (01) ==
LOC: ED 22:13
DX: R10.12 Left upper quadrant pain (principal); F17.200 Nicotine dependence, unspecified, uncomplicated
CPT/HCPCS: 80053; 83690; 85025; 96365; 96375; 99283; 99284; A9270; J7040; 36415

== ENCOUNTER 2018-06-15 14:43 | Outpatient (CLI) | payer OTHER | END 2018-06-15 14:44 | disposition short-term general hospital (02) | LOC: EMS 14:43 | PROVIDERS: ATTEND Surgery | DX: O99.89 Other specified diseases and conditions complicating pregnancy, childbirth and the puerperium (principal); R10.9 Unspecified abdominal pain; Z3A.01 Less than 8 weeks gestation of pregnancy | CPT/HCPCS: A0425; A0427 ==

== ENCOUNTER 2018-11-05 20:44 | Outpatient (CLI) | payer OTHER | END 2018-11-05 20:45 | disposition critical access hospital (66) | LOC: EMS 20:44 | PROVIDERS: ATTEND Surgery | DX: O99.89 Other specified diseases and conditions complicating pregnancy, childbirth and the puerperium (principal); R10.9 Unspecified abdominal pain | CPT/HCPCS: A0425; A0429 ==

== ENCOUNTER 2018-11-05 21:04 | Outpatient (CLI) | payer OTHER ==
[2018-11-05 21:48] LABS: BASOPHILS % (AUTO) 0.5 %; EOSINOPHILS # (AUTO) 0.1 10^3/uL (0.0-0.7); EOSINOPHILS % (AUTO) 1.6 %; HGB - HEMOGLOBIN 12.8 g/dL (12.0-16.0); LYMPHOCYTES % (AUTO) 22.8 %; MEAN CORPUSCULAR HEMOGLOBIN 31.6 pg (27.0-31.0); MEAN CORPUSCULAR HGB CONC 34.6 g/dL (32.0-36.0); MEAN CORPUSCULAR VOLUME 91.4 fL (81.0-99.0); MEAN PLATELET VOLUME 9.8 fL (7.9-10.8); MONOCYTES # (AUTO) 0.6 10^3/uL (0.0-1.0); MONOCYTES % (AUTO) 7.1 %; NEUTROPHILS % (AUTO) 67.5 %; PLT - PLATELET COUNT 206 10^3/uL (130-450); RED BLOOD COUNT 4.05 10^6/uL (4.20-5.40); RED CELL DISTRIBUTION WIDTH 13.4 % (12.0-15.0); WHITE BLOOD COUNT 8.9 x10^3/uL (4.8-10.8)
[2018-11-05 21:50] LABS: BILIRUBIN,URINE NEGATIVE (NEGATIVE); GLUCOSE, URINE (UA) NEGATIVE (NEGATIVE); KETONES,URINE (UA) NEGATIVE (NEGATIVE); LEUKOCYTE ESTERASE, URINE NEGATIVE (NEGATIVE); NITRITE,URINE NEGATIVE (NEGATIVE); OCCULT BLOOD,URINE NEGATIVE (NEGATIVE); PH,URINE 5.5 PH (5.0-7.5); PROTEIN,URINE NEGATIVE (NEGATIVE); UROBILINOGEN,URINE 0.2 (NORMAL) E.U./dL (NORMAL)
[2018-11-05] MEDS ORDERED: ONDANSETRON ODT 4 MG TABLET TL PRN (21:53)
[2018-11-05 22:03] LABS: ALBUMIN 3.2 g/dL (3.2-5.5); ALBUMIN/GLOBULIN RATIO 0.9 (1.0-2.2); BILIRUBIN,TOTAL 0.7 mg/dL (0.2-1.0); CALCIUM 9.6 mg/dL (8.5-10.3); CREATININE 0.4 mg/dL (0.4-1.0); TOTAL PROTEIN 6.7 g/dL (6.7-8.2)
[2018-11-05] MEDS ORDERED: LACTATED RINGERS 500 ML IV ONE (22:04)
[2018-11-05 22:09] LABS: CLARITY,URINE HAZY (CLEAR)
[2018-11-05 22:10] LABS: BACTERIA,URINE Moderate /HPF (None Seen); RBC,URINE 0-5 /HPF (0-5); SQUAMOUS EPITHELIAL CELL,UR MOD Squamous (<= Few)
[2018-11-05 22:28] LABS: MUDS CUTOFF CONCENTRATIONS CUTOFF CONC BELOW:
[2018-11-05 22:38] LABS: AMPHETAMINE SCREEN,URINE NEGATIVE (NEGATIVE); BENZODIAZEPINES SCREEN, URINE NEGATIVE (NEGATIVE); COCAINE SCREEN URINE NEGATIVE (NEGATIVE); METHADONE SCREEN, URINE NEGATIVE (NEGATIVE); METHAMPHETAMINES SCREEN, URINE NEGATIVE (NEGATIVE); OPIATE SCREEN, URINE NEGATIVE (NEGATIVE); OXYCODONE SCREEN, URINE NEGATIVE (NEGATIVE); PROPOXYPHENE SCREEN, URINE NEGATIVE (NEGATIVE); TRICYCLIC ANTIDEPRESSANT,URINE NEGATIVE (NEGATIVE)
[2018-11-05] MEDS ORDERED: SODIUM CHLORIDE FLUSH 0.9% 10 ML SYRINGE ONE (23:03)
[2018-11-06 00:01] VITALS: BP 114/69
--- NOTE | 2018-11-07 21:08 | PROCEDURE REPORT ---
- HPI Diagnosis/Indication for NST: Other (abdomnal owens see full H&P) Current EDU 01/19/19 Gestation 29 Weeks and 2 Days 6 Para 2 Vital Signs Temperature 36.9 C 11/05/18 21:15 Heart Rate 116 H 11/05/18 21:15 Respiratory Rate 20 11/05/18 21:15 Blood Pressure 120/71 11/05/18 21:15 O2 Saturation 100 11/05/18 21:15 Temperature 36.8 C 11/06/18 00:00 Heart Rate 82 11/06/18 00:00 Respiratory Rate 18 11/06/18 00:00 Blood Pressure 114/69 11/06/18 00:00 O2 Saturation 98 11/06/18 00:00 - Results and Plan Findings/Impression: round ligament pain
== END 2018-11-06 00:15 | disposition home or self-care (01) ==
LOC: WFO 21:04 → FBP 21:06 → WFO 11-06 00:15
PROVIDERS: ATTEND Obstetrics & Gynecology
DX: O99.89 Other specified diseases and conditions complicating pregnancy, childbirth and the puerperium (principal); R10.2 Pelvic and perineal pain; Z3A.29 29 weeks gestation of pregnancy
CPT/HCPCS: 36415; 80053; 81001; 83690; 85025; 96360; Q0162; 80306; 87086; 99213

== ENCOUNTER 2018-11-30 12:44 | Outpatient (CLI) | payer OTHER, MEDICAID ==
[2018-11-30 13:17] LABS: BILIRUBIN,URINE NEGATIVE (NEGATIVE); GLUCOSE, URINE (UA) NEGATIVE (NEGATIVE); KETONES,URINE (UA) NEGATIVE (NEGATIVE); LEUKOCYTE ESTERASE, URINE TRACE (NEGATIVE); NITRITE,URINE NEGATIVE (NEGATIVE); OCCULT BLOOD,URINE NEGATIVE (NEGATIVE); PH,URINE 5.5 PH (5.0-7.5); PROTEIN,URINE NEGATIVE (NEGATIVE); UROBILINOGEN,URINE 0.2 (NORMAL) E.U./dL (NORMAL)
[2018-11-30 13:18] LABS: CLARITY,URINE HAZY (CLEAR)
[2018-11-30 13:24] VITALS: BP 113/80
[2018-11-30 13:33] LABS: BACTERIA,URINE Many /HPF (None Seen); RBC,URINE 0-5 /HPF (0-5); SQUAMOUS EPITHELIAL CELL,UR MANY Squamous (<= Few)
[2018-11-30 14:29] LABS: RUPTURE OF MEMBRANES PLUS NEGATIVE (NEGATIVE)
--- NOTE | 2018-11-30 19:55 | PREOP HISTORY & PHYSICAL ---
DATE OF SERVICE: 11/30/2018 Physician: Jair Morrell MD IDENTIFICATION: The patient is a 33-year-old G5, P2, AB 1 female whose EDC is 19 January, making her 32.6 weeks. CHIEF COMPLAINT: Loss of fluid, vaginal. HISTORY OF PRESENT ILLNESS: The patient states yesterday while working, she develop fluid leaking from the vagina. She denies any smell to this at this time. She did not believe it was loss of urine. She presents today for evaluation. She states that her baby has been moving well. She denies any difficulty with any strong contractions. She feels she may be having some [place]. She is currently being seen in [place], [place], by Maternal Medicine. 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 She also has a seizure disorder as well as POTS syndrome. She notes good contractions. 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 PAST SURGICAL HISTORY: Positive for laparoscopic cholecystectomy as well as appendectomy. CURRENT MEDICATIONS 1. Gabapentin 800 mg q.i.d. 2. vitamins. 3. Hydroxyzine 25 mg at bedtime. ALLERGIES: MOTRIN WELL PEANUTS. HABITS: The patient denies use of alcohol, tobacco, street or addictive drugs. SOCIAL HISTORY: The patient works at home. Lives with her children. 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 FAMILY HISTORY: Positive for a father who has Marfan syndrome. PHYSICAL EXAMINATION GENERAL: Well-developed, well-nourished female, in no acute distress at this time. VITAL SIGNS: Stable. HEENT: Pupils are equal and round. Extraocular muscles are intact. Mouth is clear. Thyroid is not palpably enlarged. HEART: Regular rate and rhythm without murmurs. LUNGS: Lung clark are clear without rales or wheezes. ABDOMEN: Gravid. Uterus is nontender. Fundal height is roughly 33 cm. She had an ROM Plus as well as an FFN done, both of which were negative. She had a urinalysis, which showed evidence of contamination. IMPRESSION: A 33-year-old G5, P2, female at 32.6 weeks without evidence of ruptured membranes. 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 She is currently being followed by [facility]. She has been informed that she does not show signs of ruptured membranes. She has been instructed to follow up with her OB doctor in [place] for further care. Should she feel that she has membranes that are ruptured, she should return. She is also to monitor motion. TD: 11/30/2018 15:30 MTDD
== END 2018-11-30 15:25 | disposition home or self-care (01) ==
LOC: WFO 12:44 → FBP 12:47 → WFO 15:25
PROVIDERS: ATTEND Obstetrics & Gynecology
DX: O99.89 Other specified diseases and conditions complicating pregnancy, childbirth and the puerperium (principal); N89.8 Other specified noninflammatory disorders of vagina; O99.353 Diseases of the nervous system complicating pregnancy, third trimester; G40.909 Epilepsy, unspecified, not intractable, without status epilepticus; Z79.899 Other long term (current) drug therapy; Z3A.32 32 weeks gestation of pregnancy; Z86.79 Personal history of other diseases of the circulatory system; Z82.79 Family history of other congenital malformations, deformations and chromosomal abnormalities
CPT/HCPCS: 81001; 81003; 82731; 84112; 87086; 99213

== ENCOUNTER 2019-01-07 00:07 | Outpatient (CLI) | payer OTHER, MEDICAID | END 2019-01-07 00:08 | disposition EMS.NT | LOC: EMS 00:07 | PROVIDERS: ATTEND Surgery | DX: O99.89 Other specified diseases and conditions complicating pregnancy, childbirth and the puerperium (principal); R51 Headache ==

== ENCOUNTER 2019-01-14 23:36 | Outpatient (CLI) | payer OTHER, MEDICAID ==
[2019-01-15] VITALS: BP 120/82
--- NOTE | 2019-01-15 10:06 | PROCEDURE REPORT ---
- HPI Current EDU 01/19/19 Gestation 39 Weeks and 3 Days 5 Para 2 Vital Signs Temperature 36.8 C 01/14/19 23:59 Heart Rate 96 01/14/19 23:59 Respiratory Rate 18 01/14/19 23:59 Blood Pressure 120/82 H 01/14/19 23:59 O2 Saturation 99 01/14/19 23:59 Temperature 36.8 C 01/14/19 23:59 Heart Rate 96 01/14/19 23:59 Respiratory Rate 18 01/14/19 23:59 Blood Pressure 120/82 H 01/14/19 23:59 O2 Saturation 99 01/14/19 23:59 The patient had come to OB complaining of back pain and some burning with urination. She is followed at another facility for this .She denied any fevers, nausea or vomitShe denies any vaginal bleeding or fluid. - NST Procedure Reactive NST. This was read on 01/15/2019 Nursing check the patient's cervix. Was found to be 1-1/2 cm dilated thick and posterior. - Results and Plan Plan: Since the fetus looks fine and the patient does not appear to be in labor she is being transferred ported down to the emergency room for further evaluation and treatment.
== END 2019-01-15 01:00 | disposition home or self-care (01) ==
LOC: WFO 23:36 → FBP 23:40 → WFO 01-15 01:00
PROVIDERS: ATTEND Obstetrics & Gynecology
DX: O99.89 Other specified diseases and conditions complicating pregnancy, childbirth and the puerperium (principal); M54.9 Dorsalgia, unspecified; R30.9 Painful micturition, unspecified; Z3A.39 39 weeks gestation of pregnancy
CPT/HCPCS: 99212

== ENCOUNTER 2019-01-15 01:01 | Emergency (ER) | payer OTHER, MEDICAID ==
[2019-01-15] MEDS ORDERED: LIDOCAINE PATCH 5% TOP STA (01:17)
[2019-01-15 01:29] LABS: BASOPHILS % (AUTO) 0.4 %; EOSINOPHILS # (AUTO) 0.1 10^3/uL (0.0-0.7); EOSINOPHILS % (AUTO) 1.1 %; HGB - HEMOGLOBIN 12.8 g/dL (12.0-16.0); LYMPHOCYTES # (AUTO) 1.7 10^3/uL (1.5-3.5); MEAN CORPUSCULAR HEMOGLOBIN 31.9 pg (27.0-31.0); MEAN CORPUSCULAR HGB CONC 34.8 g/dL (32.0-36.0); MEAN CORPUSCULAR VOLUME 91.8 fL (81.0-99.0); MEAN PLATELET VOLUME 10.9 fL (7.9-10.8); MONOCYTES # (AUTO) 0.8 10^3/uL (0.0-1.0); MONOCYTES % (AUTO) 8.1 %; NEUTROPHILS # (AUTO) 6.8 10^3/uL (1.5-6.6); PLT - PLATELET COUNT 187 10^3/uL (130-450); RED BLOOD COUNT 4.01 10^6/uL (4.20-5.40); RED CELL DISTRIBUTION WIDTH 13.7 % (12.0-15.0); WHITE BLOOD COUNT 9.4 x10^3/uL (4.8-10.8)
[2019-01-15 01:30] LABS: BILIRUBIN,URINE NEGATIVE (NEGATIVE); GLUCOSE, URINE (UA) NEGATIVE (NEGATIVE); KETONES,URINE (UA) NEGATIVE (NEGATIVE); LEUKOCYTE ESTERASE, URINE NEGATIVE (NEGATIVE); NITRITE,URINE NEGATIVE (NEGATIVE); OCCULT BLOOD,URINE NEGATIVE (NEGATIVE); PH,URINE 5.5 PH (5.0-7.5); PROTEIN,URINE NEGATIVE (NEGATIVE); UROBILINOGEN,URINE 0.2 (NORMAL) E.U./dL (NORMAL)
[2019-01-15 01:31] LABS: CLARITY,URINE CLEAR (CLEAR)
--- NOTE | 2019-01-15 01:31 | ED Physician Documentation ---
History of Present Illness - Stated complaint Stated Complaint: DIZZY/BK [id number] [id number] PREG - Chief complaint Chief Complaint: Back Pain - Additonal information Additional information: This is a 33-year-old female 39 weeks of with a confirmed intrauterine , who presents with back discomfort and dizziness. Patient has had dizziness on and off throughout her and is been seen in Local emergency departments Several times for this, Most recently on 08/02 at [facility]. She states that this happens usually when she stands up, she describes it as a sensation of lightheadedness. She denies chest pain or shortness of breath, no syncope. She has had some back discomfort for the past month, but over the last 2 days she has had increasing pain pain on the right side of her back which is worse when she bends forward or leans back. She states that is difficult for her to get comfortable no matter what position she is in. She denies weakness or numbness in her extremities, denies changes in bowel movements or urination. No fever. She was seen in the [facility] prior to this and Was not having contractions, She was cleared from an obstetrics perspective and sent to the emergency department for further evaluation.She denies dysuria. Patient has had some sore throat and nasal congestion for last several days, but has been able to eat and drink normally. Review of Systems Constitutional: denies: Fever Throat: reports: Sore throat : denies: Dysuria Musculoskeletal: reports: Back pain PD PAST MEDICAL HISTORY - Past Medical History Respiratory: Asthma Endocrine/Autoimmune: Other Psych: Depression, Bipolar disorder Musculoskeletal: Other - Past Surgical History Past Surgical History: Yes General: Cholecystectomy, Appendectomy - Present Medications Home Medications: Ambulatory Orders Medication Instructions Recorded Confirmed Gabapentin 1,600 mg PO BID 12/13/16 03/28/17 Trazodone HCl 100 tab PO QPM 12/13/16 06/05/17 Albuterol Sulfate [Proair Hfa 2 puffs INH Q4H PRN #1 inhaler 03/28/17 Inhaler] Fluticasone 44 Mcg [Flovent] 1 puffs INH BID 06/05/17 06/05/17 Levonorgestrel [Mirena] 1 each IY 06/05/17 Naproxen [Naprosyn] 500 mg PO BID 06/05/17 06/05/17 hydrOXYzine PAMOATE [Vistaril] 25 - 50 mg PO QPM 06/05/17 06/05/17 Albuterol Sulfate [Proair Hfa 8.5 gm IH 08/17/17 Inhaler] Duloxetine HCl 20 mg PO 08/17/17 Fluticasone 44 Mcg [Flovent] 08/17/17 Gentamicin 0.3% Ophth Drops 75 drops OPTH 08/17/17 [Garamycin] Omeprazole [PriLOSEC] 20 mg PO DAILY #14 capsule 08/22/17 Promethazine [Phenergan] 25 - 50 mg PO Q6H PRN #10 tab 08/22/17 traMADol [Ultram] 50 - 100 mg PO Q4-6H PRN #20 tablet 08/22/17 Lidocaine Patch 5% [Lidoderm Patch] 1 each TOP DAILY PRN #7 patch 01/15/19 - Allergies Allergies/Adverse Reactions: Allergies Allergy/AdvReac Type Severity Reaction Status Date / Time gluten Allergy Cramps Verified 08/17/17 17:24 hydrocodone Allergy Unknown Verified 06/05/17 17:54 ibuprofen Allergy Edema Verified 06/05/17 17:54 metronidazole Allergy Unknown Verified 08/17/17 17:24 peanut Allergy Anaphylaxis Verified 06/05/17 17:54 pineapple Allergy Rash Verified 06/05/17 17:54 - Social History Does the pt smoke?: Yes Smoking Status: Current every day smoker Does the pt drink ETOH?: No Does the pt have substance abuse?: No - Immunizations Immunizations are current?: Yes - POLST Patient has POLST: No PD ED PE NORMAL - Vitals Vital signs reviewed: Yes - General General: Alert and oriented X 3, No acute distress - HEENT HEENT: Atraumatic, PERRL, Other (Posterior pharynx erythematous, but without exudate or tonsillar edema.) - Neck Neck: Supple, no meningeal sign - Cardiac Cardiac: RRR, No murmur - Respiratory Respiratory: No respiratory distress, Clear bilaterally - Abdomen Abdomen: Soft, Non tender, Other (Gravid) - Back Back: Other (Back is normal in appearance, there is no midline tenderness palpation in the CT or L-spine. Patient is tender in the paraspinous muscles more in the lumbar spine but extending somewhat to the lower thoracic spine.) - Derm Derm: Warm and dry - Extremities Extremities: No deformity - Neuro Neuro: Alert and oriented X 3 - Psych Psych: Normal mood, Normal affect Results - Vitals Vitals: Vital Signs - 24 hr 01/15/19 01/15/19 01:09 01:13 Temperature 36.5 C Heart Rate 110 H 84 Respiratory 20 Rate Blood Pressure 137/98 H O2 Saturation 100 Oxygen O2 Source Room air - Labs Labs: Laboratory Tests 01/15/19 01/15/19 01/15/19 01:15 01:15 01:20 WBC 9.4 RBC 4.01 L Hgb 12.8 Hct 36.8 L MCV 91.8 MCH 31.9 H MCHC 34.8 RDW 13.7 Plt Count 187 MPV 10.9 H Neut # (Auto) 6.8 H Lymph # (Auto) 1.7 [place] # (Auto) 0.8 Eos # (Auto) 0.1 Baso # (Auto) 0.0 Absolute Nucleated RBC 0.00 Nucleated RBC % 0.0 Sodium Potassium Chloride Carbon Dioxide Anion Gap BUN Creatinine Estimated GFR (MDRD) Glucose Calcium Total Bilirubin AST ALT Alkaline Phosphatase Total Protein Albumin Globulin Albumin/Globulin Ratio Lipase Urine Color YELLOW Urine Clarity CLEAR Urine pH 5.5 Ur Specific Clemons <=1.005 Urine Protein NEGATIVE Urine Glucose (UA) NEGATIVE Urine Ketones NEGATIVE Urine Occult Blood NEGATIVE Urine Nitrite NEGATIVE Urine Bilirubin NEGATIVE Urine Urobilinogen 0.2 (NORMAL) Ur Leukocyte Esterase NEGATIVE Ur Microscopic Review NOT INDICATED Urine Culture Comments NOT INDICATED Group A Strep Rapid Negative 01/15/19 01:20 WBC RBC Hgb Hct MCV MCH MCHC RDW Plt Count MPV Neut # (Auto) Lymph # (Auto) [place] # (Auto) Eos # (Auto) Baso # (Auto) Absolute Nucleated RBC Nucleated RBC % Sodium 136 Potassium 3.6 Chloride 105 Carbon Dioxide 23 Anion Gap 8.0 BUN 7 Creatinine 0.5 Estimated GFR (MDRD) 143 Glucose 117 H Calcium 8.9 Total Bilirubin 0.7 AST 21 ALT 15 Alkaline Phosphatase 140 H Total Protein 6.8 Albumin 2.9 L Globulin 3.9 Albumin/Globulin Ratio 0.7 L Lipase 41 Urine Color Urine Clarity Urine pH Ur Specific Clemons Urine Protein Urine Glucose (UA) Urine Ketones Urine Occult Blood Urine Nitrite Urine Bilirubin Urine Urobilinogen Ur Leukocyte Esterase Ur Microscopic Review Urine Culture Comments Group A Strep Rapid PD MEDICAL DECISION MAKING - ED course Complexity details: considered differential (UTI, pyelonephritis, muscle strain, Dehydration, electrolyte abnormality, Premature labor) ED course: Patient is well-appearing on exam, in triage she did have a tachycardia, on my exam the heart rate is in the 80s. She has no midline tenderness of her back, her back appears atraumatic, and she is tender only in the paraspinous muscles. It sounds like her pain is been going on for a while but worsened over the recent days. She has no signs of sciatica on straight leg raise. She is ambulatory, and she has excellent distal strength and sensation. She has been cleared by OB, no signs of active labor. No red flags for back pain. She was given a lidocaine patch as she has already received Tylenol. She did have good relief with the lidocaine patch. Her labs are unremarkable and urinalysis is negative for infection. Regarding her sore throat, this appears to be a viral pharyngitis that she has some runny nose and mild throat erythema. She has no exudate, rapid strep is negative, she has normal range of motion of her neck and jaw, and she is nontoxic-appearing. I discussed supportive care with her. She also complained of some mild intermittent dizziness, she has a history of POTS. Given her reassuring labs, stable vital signs, And chronicity of her symptoms, I discussed supportive care and adequate hydration as well as return precautions, patient was discharged home in the care of her . Departure - Departure Disposition: 01 Home, Self Care Clinical Impression: Back pain Qualifiers: Back pain location: low back pain Chronicity: acute Back pain laterality: right Sciatica presence: without sciatica Qualified Code(s): M54.5 - Low back pain Condition: Good Instructions: ED Neck Back Pain General Follow-Up: Gisele Zarate MD [Primary Care Provider] - Within 1 week Prescriptions: Lidocaine Patch 5% [Lidoderm Patch] 1 each TOP DAILY PRN #7 patch PRN Reason: Pain Comments: Your labs are reassuring today, we do not see signs of a urinary tract infection. You appear to have a muscle strain, you may take Tylenol 650 mg every 6 hours as needed, you may also use the lidocaine patches. Avoid ibuprofen or naproxen given how far along you are in your . If you are having severely increasing pain, weakness or numbness, or other concerning symptoms return to the emergency department. Otherwise follow-up with your OB provider and primary care provider.
[2019-01-15 01:46] LABS: ALBUMIN 2.9 g/dL (3.2-5.5); ALBUMIN/GLOBULIN RATIO 0.7 (1.0-2.2); BILIRUBIN,TOTAL 0.7 mg/dL (0.2-1.0); CALCIUM 8.9 mg/dL (8.5-10.3); CREATININE 0.5 mg/dL (0.4-1.0); TOTAL PROTEIN 6.8 g/dL (6.7-8.2)
[2019-01-15] MEDS ORDERED: oxyCODONE 5 MG TABLET PO STA (02:13)
[2019-01-15 02:37] VITALS: BP 125/92
== END 2019-01-15 02:40 | disposition home or self-care (01) ==
LOC: ED 01:01
DX: O99.89 Other specified diseases and conditions complicating pregnancy, childbirth and the puerperium (principal); M54.9 Dorsalgia, unspecified; R30.9 Painful micturition, unspecified; F17.200 Nicotine dependence, unspecified, uncomplicated; Z3A.39 39 weeks gestation of pregnancy
CPT/HCPCS: 36415; 80053; 81003; 83690; 85025; 87070; 87430; 99212; 99283; 99284; A9270; 81001; 87086

== ENCOUNTER 2019-01-17 23:28 | Outpatient (CLI) | payer OTHER, MEDICAID | END 2019-01-17 23:29 | disposition EMS.NT | LOC: EMS 23:28 | PROVIDERS: ATTEND Surgery | DX: O99.89 Other specified diseases and conditions complicating pregnancy, childbirth and the puerperium (principal); R51 Headache; R53.1 Weakness ==

== ENCOUNTER 2019-01-20 18:58 | Emergency (ER) | payer OTHER, MEDICAID ==
--- NOTE | 2019-01-20 20:09 | ED Physician Documentation ---
PD HPI URI - Stated complaint Stated Complaint: CONGESTION - Chief complaint Chief Complaint: Heent - History obtained from History obtained from: Patient - History of Present Illness Timing - onset: How many days ago (4) Timing duration: Days (4) Timing details: Gradual onset, Still present (worsening now) Associated symptoms: Fever, Nasal congestion, Sinus pain, Sore throat Contributing factors: Other (). No: Sick contact, Immunocompromised Similar symptoms before: Has not had sx before Review of Systems Constitutional: reports: Fever Nose: reports: Congestion, Sinus pressure / pain Throat: reports: Sore throat Respiratory: denies: Cough GI: denies: Nausea, Vomiting, Diarrhea : reports: Now EGA (39 weeks). denies: Vaginal bleeding Skin: denies: Rash, Lesions Musculoskeletal: denies: Back pain PD PAST MEDICAL HISTORY - Past Medical History Respiratory: Asthma Endocrine/Autoimmune: Other Psych: Depression, Bipolar disorder Musculoskeletal: Other - Past Surgical History Past Surgical History: Yes General: Cholecystectomy, Appendectomy - Present Medications Home Medications: Ambulatory Orders Medication Instructions Recorded Confirmed Gabapentin 1,600 mg PO BID 12/13/16 03/28/17 Trazodone HCl 100 tab PO QPM 12/13/16 06/05/17 Albuterol Sulfate [Proair Hfa 2 puffs INH Q4H PRN #1 inhaler 03/28/17 Inhaler] Fluticasone 44 Mcg [Flovent] 1 puffs INH BID 06/05/17 06/05/17 Levonorgestrel [Mirena] 1 each IY 06/05/17 Naproxen [Naprosyn] 500 mg PO BID 06/05/17 06/05/17 hydrOXYzine PAMOATE [Vistaril] 25 - 50 mg PO QPM 06/05/17 06/05/17 Albuterol Sulfate [Proair Hfa 8.5 gm IH 08/17/17 Inhaler] Duloxetine HCl 20 mg PO 08/17/17 Fluticasone 44 Mcg [Flovent] 08/17/17 Gentamicin 0.3% Ophth Drops 75 drops OPTH 08/17/17 [Garamycin] Omeprazole [PriLOSEC] 20 mg PO DAILY #14 capsule 08/22/17 Promethazine [Phenergan] 25 - 50 mg PO Q6H PRN #10 tab 08/22/17 traMADol [Ultram] 50 - 100 mg PO Q4-6H PRN #20 tablet 08/22/17 Lidocaine Patch 5% [Lidoderm Patch] 1 each TOP DAILY PRN #7 patch 01/15/19 Albuterol Sulf [Ventolin Hfa 1 - 2 puffs INH Q4HR PRN #1 inhaler 01/20/19 Inhaler] Amoxicillin 500 mg PO TID #21 capsule 01/20/19 Benzonatate [Tessalon Perle] 100 mg PO TID PRN #15 capsule 01/20/19 Lidocaine Patch 5% [Lidoderm Patch] 1 patch TOP DAILY PRN #10 patch 01/20/19 - Allergies Allergies/Adverse Reactions: Allergies Allergy/AdvReac Type Severity Reaction Status Date / Time gluten Allergy Cramps Verified 01/20/19 19:02 hydrocodone Allergy Unknown Verified 01/20/19 19:02 ibuprofen Allergy Edema Verified 01/20/19 19:02 metronidazole Allergy Unknown Verified 01/20/19 19:02 peanut Allergy Anaphylaxis Verified 01/20/19 19:02 pineapple Allergy Rash Verified 01/20/19 19:02 - Social History Does the pt smoke?: Yes Smoking Status: Current every day smoker Does the pt drink ETOH?: No Does the pt have substance abuse?: No - Immunizations Immunizations are current?: Yes - POLST Patient has POLST: No PD ED PE NORMAL - Vitals Vital signs reviewed: Yes - General General: Alert and oriented X 3, No acute distress, Well developed/nourished - HEENT HEENT: Ears normal, Moist mucous membranes, Pharynx benign, Other (maxillary sinus tender to percussion) - Neck Neck: Supple, no meningeal sign, No adenopathy - Cardiac Cardiac: RRR, No murmur - Respiratory Respiratory: Clear bilaterally - Abdomen Abdomen: Soft, Other (gravid c/w dates, not tender. ) - Derm Derm: Normal color, Warm and dry Results - Vitals Vitals: Oxygen O2 Source Room air - Labs Labs: Laboratory Tests 01/20/19 01/20/19 01/20/19 20:00 20:25 20:42 Influenza A (Rapid) Negative Influenza B (Rapid) Negative Rubella IgG Antibody 32.0 Blood Type A POSITIVE PD MEDICAL DECISION MAKING - ED course Complexity details: considered differential (seems URI underlying but with sinus symptoms worse, and in lieu of , can cover with abx in case of bacterial. ), d/w patient Departure - Departure Disposition: 01 Home, Self Care Clinical Impression: Upper respiratory infection Qualifiers: URI type: unspecified URI Qualified Code(s): J06.9 - Acute upper respiratory infection, unspecified Sinusitis Qualifiers: Sinusitis location: unspecified location Chronicity: acute Recurrence: non- recurrent Qualified Code(s): J01.90 - Acute sinusitis, unspecified Qualifiers: Weeks of gestation: 39 weeks Qualified Code(s): Z3A.39 - 39 weeks gestation of Condition: Stable Record reviewed to determine appropriate education?: Yes Instructions: ED Sinusitis Abx Tx Follow-Up: Kaveh Dumont DO [Provider Admit Priv/Credential] - Prescriptions: Albuterol Sulf [Ventolin Hfa Inhaler] 1 - 2 puffs INH Q4HR PRN #1 inhaler PRN Reason: Shortness Of Air/Wheezing Amoxicillin 500 mg PO TID #21 capsule Benzonatate [Tessalon Perle] 100 mg PO TID PRN #15 capsule PRN Reason: Cough Lidocaine Patch 5% [Lidoderm Patch] 1 patch TOP DAILY PRN #10 patch PRN Reason: pain Comments: This may all be a viral illness, however some of your symptoms sound like developing a separate sinus infection so we will treated with some antibiotics in case. Continue Tylenol every 4-6 hours if needed for headache and pains. Stay well- hydrated. Use your albuterol inhaler 2 puffs 4 times a day for the next several days and extra times as needed. You can add Tessalon if needed for cough. You can use regular Robitussin cough medicine but not the DM version. Follow-up with RADIOLOGIC TECHNOLOGY PROGRAM DIRECTOR in the next few days, call tomorrow for an appointment. Your flu test is negative so the initial illness seems likely to be a regular head/chest cold but now concerning for a bacterial on top of that. Discharge Date/Time: 01/20/19 21:15
[2019-01-20] MEDS ORDERED: ACETAMINOPHEN 325 MG TABLET PO STA (20:32)
[2019-01-20] MEDS ORDERED: BENZONATATE 100 MG CAPSULE PO STA (20:32)
[2019-01-20] MEDS ORDERED: AMOXICILLIN 250 MG CAPSULE PO STA (20:32)
[2019-01-20] MEDS ORDERED: oxyCODONE 5 MG TABLET PO STA (20:33)
[2019-01-20 21:10] VITALS: BP 129/113
--- NOTE | 2019-01-21 06:58 | PROCEDURE REPORT ---
- HPI Current EDU 01/28/19 Gestation 38 Weeks and 6 Days 5 Para 2 Vital Signs Temperature 36.9 C 01/20/19 19:02 Heart Rate 117 H 01/20/19 19:02 Respiratory Rate 24 01/20/19 19:02 Blood Pressure 136/88 H 01/20/19 19:02 O2 Saturation 98 01/20/19 19:02 Temperature 36.9 C 01/20/19 19:02 Heart Rate 103 H 01/20/19 21:10 Respiratory Rate 18 01/20/19 21:10 Blood Pressure 129/113 H 01/20/19 21:10 O2 Saturation 96 01/20/19 21:10 The patient had come to the emergency department complaining about congestion. The emergency room physician wished a nonstress test performed. The patient denies any signs of labor. She denies any contractions, vaginal bleeding or fluid. She did notes good movement. - NST Procedure NST Procedure Start Date 01/20/19 Start Time 19:37 Stop Time 20:01 Vibroacoustic Stimulation Used No Patient States Movement Yes The NST is reactive. This was read on 01/21/2019 - Results and Plan Findings/Impression: Intrauterine at 38 weeks 6 days gestation URI Since the NST is reactive and the patient is not in labor she was released to the care of the emergency room physician. She will follow-up with her obstetrical appointments at her regularly scheduled visit.
[2019-01-22 12:11] LABS: HEPATITIS C ANTIBODY NON-REACTIVE (NON-REACTIVE)
[2019-01-22 14:07] LABS: HIV AG/AB 4TH GEN NON-REACTIVE (NON-REACTIVE)
[2019-01-23 20:40] LABS: TREPONEMA AB IGG NEGATIVE
== END 2019-01-20 21:15 | disposition home or self-care (01) ==
LOC: ED 18:58
DX: O99.513 Diseases of the respiratory system complicating pregnancy, third trimester (principal); J06.9 Acute upper respiratory infection, unspecified; J01.90 Acute sinusitis, unspecified; O99.333 Smoking (tobacco) complicating pregnancy, third trimester; Z3A.39 39 weeks gestation of pregnancy
CPT/HCPCS: 36415; 86704; 86762; 86780; 86803; 86900; 86901; 87275; 87276; 87389; 99283; A9270

== ENCOUNTER 2019-01-27 16:47 | Outpatient (CLI) | payer OTHER, MEDICAID ==
--- NOTE | 2019-01-27 18:21 | Ultrasound Report ---
Reason: SUPER OF NORMAL PREG, 3RD TRIMESTER Procedure Date: 01/27/2019 Accession Number: [id number] / [id number] Procedure: US - OB Limited CPT Code: Final Report FULL RESULT: EXAM: LIMITED OBSTETRICAL ULTRASOUND EXAM DATE: 01/27/2019 05:52 PM. CLINICAL HISTORY: History of LGA. Check growth and MANDI. COMPARISON: None. TECHNIQUE: Real-time sonographic evaluation of the fetus performed by the nurse practitioner. Multiple claim service representative static images were saved for review. DATING: Established EGA 39 weeks 6 days with JAZMIN 01/28/2019 based on stated dating. EGA 38 weeks 5 days with JAZMIN 02/05/2019 based on the current ultrasound. GENERAL EVALUATION [facility]ges . Cardiac activity: 141 bpm. movement: Visualized. Presentation: Cephalic. Placenta: Anterior position. Amniotic fluid: Normal. MANDI 10 cm. MVP 3.4 cm. BIOMETRY Bi-Parietal Diameter (BPD): 9.5 cm, 38 weeks 6 days. Head Circumference (HC): 34.6 cm, 40 weeks 0 days. Abdominal Circumference (AC): 35.7 cm, 39 weeks 4 days. Femur Length (FL): 7.1 cm, 36 weeks 3 days. Estimated Weight: 3621 g, 52.4 percentile for 39 weeks 6 days. IMPRESSION: 1. Hodges live intrauterine with gestational age 39 weeks 6 days based on stated dating. 2. Estimated weight is within expected limits for assigned dating. 3. Normal MANDI of 10 cm. RADIA
== END 2019-01-27 16:48 | disposition home or self-care (01) ==
LOC: DI 16:47
PROVIDERS: ATTEND Obstetrics & Gynecology
DX: Z34.83 Encounter for supervision of other normal pregnancy, third trimester (principal)
CPT/HCPCS: 76815

== ENCOUNTER 2019-01-28 18:01 | Inpatient (IN) | payer OTHER, MEDICAID ==
[2019-01-28] MEDS ORDERED: OXYTOCIN/DEXTROSE 5 % 30 UNIT/500 ML BAG IV PRN (18:33)
[2019-01-28] MEDS ORDERED: AMPICILLIN 2 GM in SODIUM CHLORIDE 0.9% MINIBAG 100 ML IV ONE (18:33)
[2019-01-28] MEDS ORDERED: ONDANSETRON 4 MG/2 ML VIAL IVP PRN ×2 (18:33→23:48)
[2019-01-28] MEDS ORDERED: SODIUM CHLORIDE FLUSH 0.9% 10 ML SYRINGE IVP PRN (18:33)
[2019-01-28] MEDS ORDERED: fentaNYL 100 MCG/2 ML VIAL IVP PRN (18:33)
[2019-01-28] MEDS: LACTATED RINGERS 1,000 ML IV SCH ×2 (19:28→23:38)
--- NOTE | 2019-01-28 19:35 | HISTORY & PHYSICAL EXAMINATION ---
Admit History - Visit Reason Visit Reason: Contractions - Smoking Status: Never smoker - Mother's Labs Mother's Blood Type: positive: A Mother's RH: positive: Positive GBS: positive: Group B Strep Positive Rubella Status: positive: Immune - Other Maternal History Other Maternal History: History chief complaint: The patient is well-developed, well-nourished, 33-year-old [place] female. She is a 5 para 2-0-2-2 with a EDC as far as we can ascertain by ultrasound of 01/28/2019. We are still awaiting her ultrasound and complete package from [place]. This makes her approximately 40 weeks gestation today.She has been followed for her pregnancies in [place]. She transfers to us because she states she did not like the care she was receiving there. Early in she had been transferred to maternal- medicine for possibly Erler Danlos syndrome. She was checked out by genetics who did not feel that that she has that syndrome. It was felt that she might have Marfan's also and that was ruled out.She has been in and out of the ER throughout this for non-obstetric complaints.She has had visits in our OB department for a nonstress tests. She also came in one time for rule out labor with rupture of membranes which was all ruled out. The patient has had 2 previous full-term vaginal deliveries. She had one complete miscarriage in 1 miscarriage necessitating a D&C.She denies any history of pelvic inflammatory disease, gonorrhea, syphilis, chlamydia, herpes, recurrent vaginal infections or trichomonas. She has had abnormal Pap smears in the past. 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 Her last biopsies were in January 2018 prior to her becoming . She does plan on breast-feeding. She denies any self or family history of breast disease. A review of her records reveals that she did have chlamydia earlier in and both she and her partner were treated. She has a history of bipolar 1 disorder.She also may have a history of postural orthostatic tachycard ia syndrome. She was slated originally for a induction of labor tomorrow but today at about 4:00 she began having strong contractions. She states she is actually been neftali since last night. She denies any vaginal bleeding or fluid. A recent ultrasound revealed the fetus to be [id number] gWith a normal MANDI of 10. Meds/Allgy - Home Medications Home Medications: Ambulatory Orders Medication Instructions Recorded Confirmed Gabapentin 1,600 mg PO BID 12/13/16 03/28/17 Trazodone HCl 100 tab PO QPM 12/13/16 06/05/17 Albuterol Sulfate [Proair Hfa 2 puffs INH Q4H PRN #1 inhaler 03/28/17 Inhaler] Fluticasone 44 Mcg [Flovent] 1 puffs INH BID 06/05/17 06/05/17 Levonorgestrel [Mirena] 1 each IY 06/05/17 Naproxen [Naprosyn] 500 mg PO BID 06/05/17 06/05/17 hydrOXYzine PAMOATE [Vistaril] 25 - 50 mg PO QPM 06/05/17 06/05/17 Albuterol Sulfate [Proair Hfa 8.5 gm IH 08/17/17 Inhaler] Duloxetine HCl 20 mg PO 08/17/17 Fluticasone 44 Mcg [Flovent] 08/17/17 Gentamicin 0.3% Ophth Drops 75 drops OPTH 08/17/17 [Garamycin] Omeprazole [PriLOSEC] 20 mg PO DAILY #14 capsule 08/22/17 Promethazine [Phenergan] 25 - 50 mg PO Q6H PRN #10 tab 08/22/17 traMADol [Ultram] 50 - 100 mg PO Q4-6H PRN #20 tablet 08/22/17 Lidocaine Patch 5% [Lidoderm Patch] 1 each TOP DAILY PRN #7 patch 01/15/19 Albuterol Sulf [Ventolin Hfa 1 - 2 puffs INH Q4HR PRN #1 inhaler 01/20/19 Inhaler] Amoxicillin 500 mg PO TID #21 capsule 01/20/19 Benzonatate [Tessalon Perle] 100 mg PO TID PRN #15 capsule 01/20/19 Lidocaine Patch 5% [Lidoderm Patch] 1 patch TOP DAILY PRN #10 patch 01/20/19 - Allergies Allergies/Adverse Reactions: Allergies Allergy/AdvReac Type Severity Reaction Status Date / Time gluten Allergy Cramps Verified 01/20/19 19:02 hydrocodone Allergy Unknown Verified 01/20/19 19:02 ibuprofen Allergy Edema Verified 01/20/19 19:02 metronidazole Allergy Unknown Verified 01/20/19 19:02 peanut Allergy Anaphylaxis Verified 01/20/19 19:02 pineapple Allergy Rash Verified 01/20/19 19:02 Review of Systems - Constitutional Constitutional: denies: Fatigue, Fever, Chills, Malaise, Poor appetite - Eyes Eyes: denies: Pain, Irritation, Amaurosis, Blurred vision, Spots in vision - Ears, Nose & Throat Ears, Nose & Throat: denies: Ear pain, Hearing loss, Hearing aids, Tinnitus, Vertigo, Nasal discharge, Nasal obstruction, Nasal congestion, Dentures, Sore throat, Hoarseness - Cardiovascular Cariovascular: denies: Irregular heart rate, Palpitations, Chest pain, Edema, Lightheadedness, Syncope - Respiratory Respiratory: denies: Cough, Sputum production, Wheezing, Hemoptysis, Orthopnea, SOB at rest - Gastrointestinal Gastrointestinal: denies: Abdominal pain, Abdominal distention, Constipation, Diarrhea, Rectal bleeding, Black stools, Nausea, Vomiting, Poor appetite - Genitourinary Genitourinary: denies: Dysuria, Frequency, Urgency, Hematuria, Incontinence - Musculoskeletal Musculoskeletal: denies: Muscle pain, Muscle aches, Stiffness, Limited range of motion, Muscle weakness, Gout, Joint pain - Integumentary Integumentary: denies: Rash, Pruritis, Lesions, Dryness, Acne - Neurological Neurological: denies: General weakness, Focal weakness, Headache, Dizziness, Numbness, Memory problems, Pre-existing deficit, Abnormal gait - Psychiatric Psychiatric: reports: Other (She does have bipolar disorder.). denies: Suicidal, Delusions, Hallucinations - Endocrine Endocrine: denies: Polyuria, Polydypsia, Polyphagia, Intolerance to cold, Intolerance to heat - Hematologic/Lymphatic Hematologic/Lymphatic: denies: Anemia, Bruising, Petechiae, Blood clots, Lymphadenopathy, Bleeding tendencies - All Other Systems All Other Systems: reports: Reviewed and negative Physical - Abdominal Exam Vital Signs: Temp Pulse Resp BP Pulse Ox 36.8 C 115 H 16 126/86 H 98 01/28/19 18:15 01/28/19 18:15 01/28/19 18:15 01/28/19 18:15 01/28/19 18:15 Contraction Intensity: positive: Moderate Uterine Resting Tone: positive: Soft - Monitoring Strip Review: positive: Category I - Presentation Presentation: positive: Vertex - Vaginal Exam Membranes: positive: Membranes intact Dilation (in cm): 3-4 Effacement (%): 75 Station: positive: -3 Cervical Position: positive: Posterior - Other Notes Labor Progress Note/Additional Text: Heart: Heart has regular rate rhythm without murmur Lungs: Lungs clear to auscultation bilaterally without wheezes, rales or rhonchi Abdomen: The abdomen is soft, pliable and nontender. The uterus is soft between moderate contractions occurring every 3 to 4 minutes. There is a category 1 EFM noted. Extremities: Extremities are warm and dry without edema Neurologic: The patient is alert and oriented x3. Plan for Labor - Plan For Labor I expect patient to be DC'd or transferred within 96 hours.: Yes Plan for Labor: Impression: Intrauterine at 40 weeks gestation Latent phase labor Plan: The patient is being admitted. We will start antibiotic prophylaxis. We will continue to follow her closely.
[2019-01-28 19:50] LABS: BASOPHILS % (AUTO) 0.3 %; EOSINOPHILS # (AUTO) 0.1 10^3/uL (0.0-0.7); EOSINOPHILS % (AUTO) 0.7 %; HGB - HEMOGLOBIN 12.3 g/dL (12.0-16.0); LYMPHOCYTES # (AUTO) 1.2 10^3/uL (1.5-3.5); LYMPHOCYTES % (AUTO) 11.3 %; MEAN CORPUSCULAR HEMOGLOBIN 31.8 pg (27.0-31.0); MEAN CORPUSCULAR HGB CONC 34.1 g/dL (32.0-36.0); MEAN CORPUSCULAR VOLUME 93.3 fL (81.0-99.0); MEAN PLATELET VOLUME 11.6 fL (7.9-10.8); MONOCYTES # (AUTO) 0.6 10^3/uL (0.0-1.0); MONOCYTES % (AUTO) 5.3 %; NEUTROPHILS # (AUTO) 8.6 10^3/uL (1.5-6.6); NEUTROPHILS % (AUTO) 81.8 %; PLT - PLATELET COUNT 205 10^3/uL (130-450); RED BLOOD COUNT 3.87 10^6/uL (4.20-5.40); RED CELL DISTRIBUTION WIDTH 14.2 % (12.0-15.0); WHITE BLOOD COUNT 10.5 x10^3/uL (4.8-10.8)
--- NOTE | 2019-01-28 22:37 | PROVIDER PROGRESS NOTE ---
Labor Progress Note - Labor Progress Note Labor Progress Note/Additional Text: The patient cervix is now 4 cm 80% effaced -2. Category 1 EFM is noted. The patient is neftali moderate to firm every 2 to 3 minutes. She would like an epidural. We will have anesthesia come in to place this.
[2019-01-28] MEDS ORDERED: BUPIVACAINE 0.25% PF 10 ML VIAL ONE (22:57)
[2019-01-28] MEDS ORDERED: SODIUM CHLORIDE FLUSH 0.9% 10 ML SYRINGE ONE (22:57)
--- NOTE | 2019-01-28 23:01 | PROVIDER PROGRESS NOTE ---
Labor Progress Note - Labor Progress Note Labor Progress Note/Additional Text: The patient did have a deceleration into the 90s with a slow return to baseline. She was turned onto her right side. O2 By mask was applied. heart tones are now in the 120s with good reactivity noted. The patient cervix is now 5 cm 80% -2.She is going to get her epidural. We will continue to follow her closely.
[2019-01-28] MEDS ORDERED: ROPIVACAINE 0.2% 200 MG/100 ML BAG EP ONE (23:28)
[2019-01-28] MEDS: AMPICILLIN 1 GM in SODIUM CHLORIDE 0.9% MINIBAG 100 ML IV SCH (23:39)
[2019-01-28] MEDS ORDERED: ePHEDrine 50 MG/ML VIAL IVP PRN (23:48)
[2019-01-28] MEDS ORDERED: ROPIVACAINE 0.2% 200 MG/100 ML BAG EP PRN (23:48)
[2019-01-28] MEDS ORDERED: NALBUPHINE 10 MG/ML AMP IVP PRN (23:48)
[2019-01-28] MEDS ORDERED: NALOXONE 0.4 MG/ML VIAL IVP PRN (23:48)
[2019-01-28] MEDS ORDERED: diphenhydrAMINE INJ 50 MG/ML VIAL IVP PRN (23:48)
[2019-01-28] MEDS ORDERED: LACTATED RINGERS 500 ML IV ONE (23:48)
[2019-01-28] MEDS ORDERED: METOCLOPRAMIDE 10 MG/2 ML VIAL IVP PRN (23:48)
--- NOTE | 2019-01-28 23:53 | ANESTHESIA ---
Pre-Anesthesia VS, & Labs - Diagnosis active labor - Procedure labor epidural Vital Signs: Temp Pulse Resp BP Pulse Ox 36.8 C 115 H 16 126/86 H 98 01/28/19 18:15 01/28/19 18:15 01/28/19 18:15 01/28/19 18:15 01/28/19 18:15 Height 5 ft 6 in Weight (kg) 75.75 kg Body Mass Index 26.4 - Is Patient ?: Yes - Lab Results Current Lab Results: Laboratory Tests 01/28/19 18:58: WBC 10.5, RBC 3.87 L, Hgb 12.3, Hct 36.1 L, MCV 93.3, MCH 31.8 H , MCHC 34.1, RDW 14.2, Plt Count 205, MPV 11.6 H, Neut # (Auto) 8.6 H, Lymph # (Auto) 1.2 L, [place] # (Auto) 0.6, Eos # (Auto) 0.1, Baso # (Auto) 0.0, Absolute Nucleated RBC 0.00, Nucleated RBC % 0.0 Fish Bones: 01/28/19 18:58 Home Medications and Allergies Active Medications Fentanyl (Fentanyl) 50 mcg IVP Q1H PRN PRN Reason: PAIN Lactated Ringer's (Lr) 1,000 mls @ 150 mls/hr IV .Q6H40M [facility] Last Admin: 01/28/19 23:38 Dose: 150 mls/hr OXYTOCIN/DEXTROSE 5 % (Pitocin/Dextrose 5%) 30 unit in 500 mls @ 999 mls/hr IV PRN PRN; Protocol PRN Reason: POST- HEMORR PREVENTION Ampicillin Sodium 1 gm/ Sodium (Chloride) 100 mls @ 200 mls/hr IV Q4H [facility] Last Admin: 01/28/19 23:39 Dose: 200 mls/hr Ondansetron HCl (Zofran Inj) 4 mg IVP Q4H PRN PRN Reason: Nausea / Vomiting Sodium Chloride (Normal Saline Flush 0.9%) 10 ml IVP PRN PRN PRN Reason: NEEDED PER PROVIDER ORDERS Sodium Chloride (Normal Saline Flush 0.9%) 10 ml IVP 0100,0900,1700 [facility] Gabapentin 1,600 mg PO BID 12/13/16 Trazodone HCl 100 tab PO QPM 12/13/16 Fluticasone 44 Mcg [Flovent] 1 puffs INH BID 06/05/17 Levonorgestrel [Mirena] 1 each IY 06/05/17 Naproxen [Naprosyn] 500 mg PO BID 06/05/17 hydrOXYzine PAMOATE [Vistaril] 25 - 50 mg PO QPM 06/05/17 Albuterol Sulfate [Proair Hfa Inhaler] 8.5 gm IH 08/17/17 Duloxetine HCl 20 mg PO 08/17/17 Fluticasone 44 Mcg [Flovent] 08/17/17 Gentamicin 0.3% Ophth Drops [Garamycin] 75 drops OPTH 08/17/17 Allergies/Adverse Reactions: Allergies Allergy/AdvReac Type Severity Reaction Status Date / Time gluten Allergy Cramps Verified 01/20/19 19:02 hydrocodone Allergy Unknown Verified 01/20/19 19:02 ibuprofen Allergy Edema Verified 01/20/19 19:02 metronidazole Allergy Unknown Verified 01/20/19 19:02 peanut Allergy Anaphylaxis Verified 01/20/19 19:02 pineapple Allergy Rash Verified 01/20/19 19:02 Anes History & Medical History - Anesthetic History Anesthesia Complications: reports: No previous complications Family history of Anesthesia Complications: Denies Family history of Malignant Hyperthermia: Denies - Medical History Cardiovascular: reports: None Pulmonary: reports: Asthma Gastrointestinal: reports: None Urinary: reports: None Neuro: reports: None Musculoskeletal: reports: None, Other Endocrine/Autoimmune: reports: None, Other Blood Disorders: reports: None Skin: reports: None Smoking Status: Never smoker Psychosocial: reports: No issues indicated - Surgical History General: Cholecystectomy, Appendectomy Exam General: Alert, Oriented x3, Cooperative, No acute distress Dental: WNL Mouth Openin Fingerbreadth Neck Mobility: Normal Mallampati classification: II Thyromental Distance: 4-6 cm Respiratory: Lungs clear, Normal breath sounds, No respiratory distress, No accessory muscle use Cardiovascular: Regular rate, Normal S1, Normal S2, No murmurs Abdomen: Normal bowel sounds, Soft, No tenderness, No hepatospenomegaly, No masses Extremities: No clubbing, No cyanosis, No edema, Normal pulses, No tenderness/swelling Neurological: Normal gait, Normal speech, Strength at 5/5 X4 ext, Normal tone, Sensation intact, Cranial nerves 3-12 NL, Reflexes 2+ Mental/Cognitive Status: Alert/Oriented X3, Normal for patient Cognitive Status: Within normal limits Plan Anesthesia Type: Epidural Regional Block: Per Surgeon's request for Post Op pain control Consent for Procedure(s) Verified and Reviewed: Yes Code Status: Attempt Resuscitation ASA classification: 2-Mild systemic disease Is this case an emergency?: No
[2019-01-28] MEDS ORDERED: LIDOCAINE-MPF 1% 30 ML VIAL ONE (23:56)
--- NOTE | 2019-01-29 00:10 | ANESTHESIA PROCEDURE NOTE ---
Diagnosis: active labor Procedure: labor epidural Consent for Procedure(s) Verified and Reviewed: Yes Height and Weight: Height 5 ft 6 in Weight (kg) 75.75 kg Body Mass Index 26.4 Vital Signs: Temp Pulse Resp BP Pulse Ox 36.8 C 115 H 16 126/86 H 98 01/28/19 18:15 01/28/19 18:15 01/28/19 18:15 01/28/19 18:15 01/28/19 18:15 Allergies gluten Allergy (Verified 01/20/19 19:02) Cramps hydrocodone Allergy (Verified 01/20/19 19:02) Unknown ibuprofen Allergy (Verified 01/20/19 19:02) Edema metronidazole Allergy (Verified 01/20/19 19:02) Unknown peanut Allergy (Verified 01/20/19 19:02) Anaphylaxis pineapple Allergy (Verified 01/20/19 19:02) Rash ASA classification: 2-Mild systemic disease Is this case an emergency?: No Anes. Monitoring and Equipment: Non-invasive BP, Pulse oximetery Anes. Procedure Start Time: 23:15 Anes. Procedure Stop Time: 00:05 Procedure Notes: labor epidural placed for active labor. Site l2-l3. ptt with some lumbar scoliosis. Skin cleaned with chloroprep and sterile drape placed over the site. Lidocain 1% 3ml sq used. Epidural space access gained with 2nd attempt. No blood or CSF upon aspirating. Test dose was negative.Loading bolus of 5ml and then 3 ml (after 10 minutes of the first bolus) of bupivacain 0.25% after aspirating each time. Epidural drip started with 11ml of intermittent bolus every 55 minutes with 4ml of PCEA every 15 minutes should she need it. Pt tolerated the procedure well. at about 0000 pt was still complaining of pain. sensory level checked and determined at T9. fentanyl 100mcg with lidocain 50mg plain given via epidural after negative aspiration and pt is reporting relief now.
[2019-01-29] MEDS ORDERED: LIDOCAINE-MPF 1% 30 ML VIAL ONE (01:10)
[2019-01-29] MEDS: SODIUM CHLORIDE FLUSH 0.9% 10 ML SYRINGE IVP SCH ×3 (02:29→18:26)
--- NOTE | 2019-01-29 03:18 | DELIVERY NOTE ---
Delivery Note - Labor Labor: positive: Spontaneous - Delivery Method Delivery Method: positive: Spontaneous vaginal delivery - Presentation Presentation: positive: Vertex, ELVIA - right occiput anterior - Nuchal Cord Nuchal Cord: positive: None - Amniotic Fluid Description Amniotic Fluid Description: positive: Light meconium, Other (Terminal Meconium) - Episiotomy Type Episiotomy Type: positive: None - Laceration Laceration: positive: None - Delivery Outcome Delivery Outcome: positive: Livebirth - : positive: Placed in direct skin contact with mother, Bulb syringe, Warmed Caret sex: positive: Male : Apgars 7 and 8 - Cord Cord: positive: 3 vessels - Placenta Placenta: positive: Intact, Spontaneous - Estimated Blood Loss Estimated Blood Loss (in cc): 100 - Delivery Comments (Free Text/Narrative) Delivery Comments (Free Text/Narrative): The patient had come to L&D in the early evening hours of 01/28/2009 teen complaining contractions. She was found to be in labor. Her membranes were intact. A category 1 EFM was noted except for 1 time when she had one variable with slow return to baseline. After that however no other variables were appreciated.She followed a normal multiparous labor curve. She had an epidural placed. Her membranes ruptured spontaneously at approximately 0235 hrs. Delivery summary: The patient reached complete with respect to cervical dilatation approximately at 0236hrs.She began to push at that time. She brought the fetus down rapidly and at 0256 hrs.Delivered a viable male . Upon delivery the head the neck was checked for any signs of a nuchal cord and none was noted.The rest of the was then delivered with gentle traction and gentle expulsatory efforts. Upon full delivery the the was bulb suctioned and then placed on mother's chest. After 1 minute the cord was doubly clamped and divided. The was brought to the warmer because it was not crying well. Evaluation the warmer however revealed the to be doing actually quite well. A sample of the cord blood was then obtained and sent for evaluation.The placenta was then delivered intact with 3 vessels at 0259 hrs.30 units Pitocin IV drip were given at that time.The uterus was neftali down firmly. The cervix and vaginal vault were inspected and found to be intact. The perineum was intact. Both the and the patient were allowed to remain in the LDRP both in stable condition. Estimated blood loss was 100 mL's.
--- NOTE | 2019-01-29 03:33 | PROVIDER PROGRESS NOTE ---
Subjective - Subjective Subjective: After the delivery, for the first time, the patient states that she has a seizure disorder and is taking Neurontin 800 mg tablets 2 tablets twice a day. This was never disclosed during her care when she transferred to us. She did not say anything when she came here today. Her seizures are controlled. Objective - Vital Signs/Intake & Output Intake & Output: Intake & Output 01/26/19 01/27/19 01/28/19 01/29/19 23:59 23:59 23:59 23:59 Intake Total 625 Balance 625 - Lab Results Fish Bones: 01/28/19 18:58 Other Labs: Lab Results x24hrs 01/28/19 Range/Units 18:58 WBC 10.5 (4.8-10.8) x10^3/uL RBC 3.87 L (4.20-5.40) 10^6/uL Hgb 12.3 (12.0-16.0) g/dL Hct 36.1 L (37.0-47.0) % MCV 93.3 (81.0-99.0) fL MCH 31.8 H (27.0-31.0) pg MCHC 34.1 (32.0-36.0) g/dL RDW 14.2 (12.0-15.0) % Plt Count 205 (130-450) 10^3/uL MPV 11.6 H (7.9-10.8) fL Neut # (Auto) 8.6 H (1.5-6.6) 10^3/uL Lymph # (Auto) 1.2 L (1.5-3.5) 10^3/uL Garrett # (Auto) 0.6 (0.0-1.0) 10^3/uL Eos # (Auto) 0.1 (0.0-0.7) 10^3/uL Baso # (Auto) 0.0 (0.0-0.1) 10^3/uL Absolute Nucleated RBC 0.00 x10^3/uL Nucleated RBC % 0.0 /100WBC
[2019-01-29] MEDS: ACETAMINOPHEN 500 MG TABLET PO SCH ×3 (04:28→19:54)
[2019-01-29] MEDS: AMPICILLIN 1 GM in SODIUM CHLORIDE 0.9% MINIBAG 100 ML IV SCH ×4 (07:46→18:26)
[2019-01-29] MEDS: oxyCODONE 5 MG TABLET PO PRN ×4 (08:01→20:36)
[2019-01-29] MEDS: GABAPENTIN 400 MG CAPSULE PO SCH ×2 (09:00→20:36)
[2019-01-29] MEDS: LACTATED RINGERS 1,000 ML IV SCH ×2 (09:03→18:26)
[2019-01-29] MEDS: DOCUSATE SODIUM 100 MG CAPSULE PO SCH (20:36)
[2019-01-30] MEDS: oxyCODONE 5 MG TABLET PO PRN ×5 (00:59→21:34)
[2019-01-30] MEDS: ACETAMINOPHEN 500 MG TABLET PO SCH ×2 (06:38→17:12)
--- NOTE | 2019-01-30 07:41 | PROVIDER PROGRESS NOTE ---
Subjective - Prog Note Date Prog Note Date: 01/30/19 Prog Note Time: 07:39 - Subjective Subjective: The patient continues to do well. She still having some cramping which is to be expected. Her lochia is very light. She is breast-feeding without difficulty. She is tolerating diet well and voiding without difficulty. Objective - Vital Signs/Intake & Output Vital Signs: Vital Signs x48h Temp Pulse Resp BP Pulse Ox 01/30/19 06:38 36.7 C 90 18 119/76 96 Intake & Output: Intake & Output 01/27/19 01/28/19 01/29/19 01/30/19 23:59 23:59 23:59 23:59 Intake Total 625 1505 Output Total 1850 Balance 625 -345 - Lab Results Fish Bones: 01/28/19 18:58 - Other Results/Comments Other Results/Comments: Abdomen: The abdomen is soft, pliable and nontender. The uterus is firm and nontender 3-4 fingerbreadths below the umbilicus. Assessment/Plan - Problem List (1) Normal vaginal delivery Impression: day #1: Stable The patient will continue with her usual care orders at this time. As long as she continues to do well discharge is anticipated tomorrow.
[2019-01-30] MEDS: DOCUSATE SODIUM 100 MG CAPSULE PO SCH ×3 (08:20→21:34)
[2019-01-30] MEDS: GABAPENTIN 400 MG CAPSULE PO SCH ×2 (08:25→21:34)
[2019-01-31] MEDS: oxyCODONE 5 MG TABLET PO PRN ×4 (04:39→18:08)
[2019-01-31] MEDS: ACETAMINOPHEN 500 MG TABLET PO SCH ×2 (05:55→13:46)
--- NOTE | 2019-01-31 07:33 | PROVIDER PROGRESS NOTE ---
Subjective - Prog Note Date Prog Note Date: 01/31/19 Prog Note Time: 07:30 - Subjective Subjective: The patient is doing very well. She is ambulating well and diet well. She is without any complaint. She is breast-feeding without difficulty.Shima is li ght. Objective - Vital Signs/Intake & Output Vital Signs: Vital Signs x48h Temp Pulse Resp BP Pulse Ox 01/31/19 04:45 36.7 C 84 16 124/83 H 99 01/31/19 00:49 93 16 129/80 100 Intake & Output: Intake & Output 01/28/19 01/29/19 01/30/19 01/31/19 23:59 23:59 23:59 23:59 Intake Total 625 1505 Output Total 1850 Balance 625 -345 - Lab Results Fish Bones: 01/28/19 18:58 - Other Results/Comments Other Results/Comments: Abdomen: The abdomen is soft, pliable and nontender. The uterus is firm approximately 3 fingerbreadths below the umbilicus.It is nontender. Assessment/Plan - Problem List (1) Normal vaginal delivery Impression: day #2-stable Plan:The patient will be discharged home. She was discharged home with both written and verbal instructions such as: 1. No lifting, tampons douching or intercourse. 2. She is to report any temperatures greater than 100.4 or heavy vaginal bleeding 3. She is to continue her vitamins and increase her fluids 4. She is to use Tylenol as directed PRN for pain. 5. She is not to drive a car for the next 2 weeks 6. As long as she does well she will be seen in the office in 1 week for her initial visit.. She will be seen in the office in 6 weeks for her full visit. 7. She was told she may take a tub bath or shower. She may use also warm moist heat for cramping. 8. She will continue her usual home medications
--- NOTE | 2019-01-31 08:17 | DISCHARGE SUMMARY ---
Physician: Kaveh Dumont DO DATE OF ADMISSION: 01/28/2019 DATE OF DISCHARGE: 01/31/2019 ADMITTING DIAGNOSES 1. Intrauterine at 40 weeks gestation. 2. Latent phase labor. DISCHARGE DIAGNOSIS 1. Delivery at 40 weeks 1 day gestation. PROCEDURES: Spontaneous assisted vaginal delivery. LABORATORIES: Admit CBC revealed WBCs of 10.5, RBCs of 3.87, hemoglobin 12.3, hematocrit of 36.1 wit h 205 platelets. HOSPITAL COURSE: Patient was admitted to Labor and Delivery on 01/28/2019. At the time of admission , her cervix was found to be 3 to 4 cm dilated, 75% effaced, -3 station. Her membranes were intact. She then followed a normal multiparous labor curve and went on to deliver a viable male over an intact perineum. weighed approximately 8 pounds 3 ounces with Apgars of 8 and 9 at 1 and 5 minutes respectively. Refer to the delivery note for full details. Patient actually recovered gricelda te well. On her first day, she was ambulating well, tolerating diet well. She was breast feeding without difficulty. Because she was group B positive, she was kept for 2 days. She had been given prophylactic antibiotics during labor. On her second day, she continued to do very well. Vital signs are stable. She was afebrile. Lochia was very light. The uterus was firm, 3 fi ngerbreadths below the umbilicus. It was nontender. She was without difficulty. It w as felt the patient was stable and could be discharged to home. She was discharged to home with both written and verbal instructions including such things as: 1. She is to forego any lifting, tampons, douching or intercourse. 2. She is to report any temperatures greater than 100.4 or heavy vaginal bleeding. 3. She is not to drive a car for the next 2 weeks. 4. She is to continue to increase her fluids and continue her vitamins. 5. She is to continue her home medications. 6. She is allergic to ibuprofen and therefore may use Tylenol as directed as needed for pain. 7. She may take tub baths or a shower. She may use a heating pad as needed for the mild cramping sh e is having. 8. As long as she does well, she will be seen in the office in 1 week for an initial visit. She will need to be seen at least 6 weeks for her full visit. TD: 01/31/2019 07:42
[2019-01-31] MEDS: GABAPENTIN 400 MG CAPSULE PO SCH (09:38)
[2019-01-31] MEDS: DOCUSATE SODIUM 100 MG CAPSULE PO SCH (09:39)
[2019-01-31] MEDS ORDERED: POLYETHYLENE GLYCOL 3350 17 GM PACKET PO PRN (14:51)
[2019-01-31] MEDS ORDERED: MEASLES,MUMPS & RUBELLA VACC 0.5 ML VIAL SUBQ ONE (14:53)
[2019-01-31 15:57] VITALS: BP 133/88
--- NOTE | 2019-01-31 18:18 | Labor Flowsheet ---
Labor Flowsheet Datetime Report Generated by CPN: 01/31/2019 18:17 Datetime: 01/31/2019 15:39 VITAL SIGNS NBP Sys/Shayy/Mean (mmHg): 133 : 88 : 98 Pulse: 98 Datetime: 01/29/2019 04:06 Stage of : Recovery Datetime: 01/29/2019 04:00 LaborFlag: OB Triage Datetime: 01/29/2019 03:00 Medication Comments: PP Pitocin startedxc Datetime: 01/29/2019 02:59 UTERINE ACTIVITY Monitor Mode: External Frequency (min): 1.5-2 Duration (sec): 50-60 ASSESSMENT A Monitor Mode: Telemetry FHR Baseline Rate : 110 Variability: Moderate 6-25 bpm Accelerations: 15X15 Decelerations: None Category: Category I Datetime: 01/29/2019 02:55 Pushing Position: Pushing Lithotomy Pushing Progress: Descent with Pushing; Presenting Part Visible Datetime: 01/29/2019 02:54 SpO2 (%): 100 Datetime: 01/29/2019 02:48 Stage 2 Comments: pt in stirrups Datetime: 01/29/2019 02:44 I/O Interventions: Carranza Discontinued Patient Care Comments: 45cc emptied from carranza with d/c Datetime: 01/29/2019 02:43 STAGE 2 Pushing: Coached on Pushing; Urge to Push Datetime: 01/29/2019 02:40 Provider Reviewed Strip: Yes COMMUNICATION Communication: Provider at Bedside Notification Reason: Labor Status Datetime: 01/29/2019 02:37 Communication Comments: Dr. Tim notified of complete SVE Datetime: 01/29/2019 02:36 VAGINAL EXAM Dilatation (cm): 10.0 Station: -1 Exam by: Lewis, RN Patient Position/Activity: Left Lateral Datetime: 01/29/2019 02:35 Membrane Status: Ruptured Membranes Rupture Method: Spontaneous Amniotic Fluid Color: Clear Amniotic Fluid Amount: Moderate Amniotic Fluid Odor: Normal Datetime: 01/29/2019 02:21 Effacement (%): 80 Datetime: 01/29/2019 02:01 Temperature (C): 36.7 Datetime: 01/29/2019 02:00 PAIN Pain Scale: 4 Datetime: 01/29/2019 01:59 Pain Assessment Comments: Pt feeling pressure with ctx. Pt does not feel pressure without a ctx Anesthesia Level Check: T8- Ribs Datetime: 01/29/2019 01:52 Epidural Procedure: Completed Datetime: 01/29/2019 01:50 Anesthesia Comments: py laying down Datetime: 01/29/2019 01:16 Cervix, Consistency: Soft Datetime: 01/29/2019 01:15 Vaginal Bleeding: Normal Show Datetime: 01/29/2019 01:00 Quality: Moderate Pattern: Normal: <= 5 Contractions in 10 Minutes Resting Tone (Palpate): Relaxed Datetime: 01/29/2019 00:48 Pain Coping: Breathing Through Contractions; Crying; Writhing Datetime: 01/29/2019 00:43 Pain Presence: Intermittent Pain Type: Contraction Pain Location: Abdomen; Back Datetime: 01/29/2019 00:15 Antiemetics/Antacids: Zofran (mg) @ 4 Datetime: 01/29/2019 00:10 MATERNAL ASSESSMENT Nausea/Vomiting: Present Datetime: 01/28/2019 23:42 Contraction Comments: ctx Datetime: 01/28/2019 23:40 MEDICATIONS Antibiotics: Ampicillin IV 1 Gm PATIENT CARE IV/Blood Work: New IV Bag Hung; IV Bag Number @ 2 Datetime: 01/28/2019 23:00 Actions for Decelerations: Side to Side; Oxygen Applied; IV Bolus; Provider Notified PROCEDURE TIME OUT Procedure Verify: Correct Patient Identity; Accurate Procedure Consent Form; Agreement on Procedure to be Done; Addressed Need to Administer Antibiotics or Fluids for Irrigation; Safety Precautions Ba sed on Patient History or Medication Use ANESTHESIA Anesthesia Plans: Epidural Datetime: 01/28/2019 22:50 Provider Notified (Name): Dr Tim Datetime: 01/28/2019 22:49 Oxygen Amount (LPM): 10 Datetime: 01/28/2019 21:31 Comfort Measures: Family Support Datetime: 01/28/2019 20:59 Comments: Difficulty tracing FHR at times due to [facility] positioning [facility]. Datetime: 01/28/2019 20:57 Monitor Interventions for FHR: Ultrasound Adjusted Datetime: 01/28/2019 20:47 Monitor Interventions for UA: Plaza Adjusted Datetime: 01/28/2019 20:18 Membranes Ruptured Date/Time: 01/29/2019 02:35 Datetime: 01/28/2019 20:04 Pain Relief Measures: Comfort Measures Datetime: 01/28/2019 19:29 FHR Baseline Changes: No Baseline Change Cervix, Position: Anterior
== END 2019-01-31 18:15 | disposition home or self-care (01) | DRG 806 ==
LOC: WFO 18:01 → FBP 18:03 → WFO 18:32 → FBP 18:33
PROVIDERS: ADMIT Obstetrics & Gynecology; ATTEND Obstetrics & Gynecology
PROC: 10E0XZZ Delivery of Products of Conception, External Approach (ICD-10-PCS; principal; 2019-01-29)
DX: O99.344 Other mental disorders complicating childbirth (principal); O99.354 Diseases of the nervous system complicating childbirth; Z37.0 Single live birth; F31.9 Bipolar disorder, unspecified; G40.909 Epilepsy, unspecified, not intractable, without status epilepticus; O99.824 Streptococcus B carrier state complicating childbirth; O77.0 Labor and delivery complicated by meconium in amniotic fluid; O76 Abnormality in fetal heart rate and rhythm complicating labor and delivery; Z3A.40 40 weeks gestation of pregnancy; Z86.19 Personal history of other infectious and parasitic diseases; Z79.899 Other long term (current) drug therapy
CPT/HCPCS: 85025; 99212; A9270; J1200; J7120

== ENCOUNTER 2019-02-20 07:00 | Outpatient (CLI) | payer OTHER, MEDICAID ==
[2019-02-21 20:39] LABS: CANDIDA GROUP DNA NEGATIVE (NEGATIVE); CANDIDA KRUSEI DNA NEGATIVE (NEGATIVE); TRICHOMONAS VAGINALIS DNA NEGATIVE (NEGATIVE)
[2019-02-21 21:17] LABS: TRICHOMONAS VAGINALIS DNA NEGATIVE (NEGATIVE)
== END 2019-02-20 23:59 | disposition home or self-care (01) ==
LOC: LAB.R 07:00
PROVIDERS: ATTEND Obstetrics & Gynecology
DX: N76.0 Acute vaginitis (principal)
CPT/HCPCS: 87491; 87591; 87661; 87801

== ENCOUNTER 2019-04-01 11:35 | Outpatient (CLI) | payer OTHER, MEDICAID ==
[2019-04-01 20:41] LABS: CANDIDA GROUP DNA NEGATIVE (NEGATIVE); CANDIDA KRUSEI DNA NEGATIVE (NEGATIVE); TRICHOMONAS VAGINALIS DNA NEGATIVE (NEGATIVE)
[2019-04-01 21:58] LABS: TRICHOMONAS VAGINALIS DNA NEGATIVE (NEGATIVE)
== END 2019-04-01 23:59 | disposition home or self-care (01) ==
LOC: LAB.R 11:35
PROVIDERS: ATTEND Obstetrics & Gynecology
DX: R30.0 Dysuria (principal); N76.0 Acute vaginitis
CPT/HCPCS: 87086; 87491; 87591; 87661; 87801

== ENCOUNTER 2019-04-22 08:00 | Outpatient (CLI) | payer MEDICAID, OTHER ==
[2019-04-23 17:54] LABS: CANDIDA GROUP DNA NEGATIVE (NEGATIVE); CANDIDA KRUSEI DNA NEGATIVE (NEGATIVE); TRICHOMONAS VAGINALIS DNA NEGATIVE (NEGATIVE)
== END 2019-04-22 08:01 | disposition home or self-care (01) ==
LOC: LAB.R 08:00
PROVIDERS: ATTEND Obstetrics & Gynecology
DX: N76.0 Acute vaginitis (principal)
CPT/HCPCS: 87661; 87801

== ENCOUNTER 2019-05-08 17:32 | Outpatient (CLI) | payer MEDICAID | END 2019-05-08 17:33 | disposition home or self-care (01) | LOC: COV 17:32 | PROVIDERS: ATTEND Family Medicine | DX: R05 Cough (principal); R50.9 Fever, unspecified | CPT/HCPCS: 81599 ==

== ENCOUNTER 2019-07-04 13:26 | Emergency (ER) | payer MEDICAID ==
[2019-07-04 13:48] VITALS: BP 129/74
[2019-07-04] MEDS ORDERED: BUFFERED LIDOCAINE 10 ML SYRINGE SUBQ STA (14:57)
--- NOTE | 2019-07-04 14:58 | ED Physician Documentation ---
PD HPI UPPER EXT INJURY - Stated complaint Stated Complaint: FINGER INJURY - Chief complaint Chief Complaint: Ext Problem - History obtained from History obtained from: Patient (Previously healthy young woman ripped her fourth right fingernail off on a box at home just prior to arrival. Pain is minimal.) Review of Systems Constitutional: reports: Reviewed and negative Ears: reports: Reviewed and negative Nose: reports: Reviewed and negative PD PAST MEDICAL HISTORY - Past Medical History Cardiovascular: None Respiratory: Asthma Neuro: None Endocrine/Autoimmune: None, Other GI: None : None Psych: Depression, Bipolar disorder Musculoskeletal: None, Other Derm: None - Past Surgical History Past Surgical History: Yes General: Cholecystectomy, Appendectomy - Present Medications Home Medications: Ambulatory Orders Medication Instructions Recorded Confirmed Gabapentin [Gralise] 1 each PO 07/04/19 Hydrocodone/Acetaminophen 1 - 2 each PO Q6H PRN #7 tablet 07/04/19 [Hydrocodon-Acetaminophen 5-325] - Allergies Allergies/Adverse Reactions: Allergies Allergy/AdvReac Type Severity Reaction Status Date / Time ibuprofen Allergy Edema Verified 07/04/19 13:44 peanut Allergy Anaphylaxis Verified 07/04/19 13:44 pineapple Allergy Rash Verified 07/04/19 13:44 - Social History Does the pt smoke?: Yes Smoking Status: Current every day smoker Does the pt drink ETOH?: No Does the pt have substance abuse?: No - Immunizations Immunizations are current?: Yes - POLST Patient has POLST: No PD ED PE NORMAL - Vitals Vital signs reviewed: Yes - General General: Alert and oriented X 3, No acute distress - Extremities Extremities: Other (There is an almost complete avulsion of her [place] right fourth fingernail, the nailbed is still intact) - Neuro Neuro: Alert and oriented X 3, Normal speech Results - Vitals Vitals: Vital Signs - 24 hr 07/04/19 13:45 Temperature 36.6 C Heart Rate 91 Respiratory 16 Rate Blood Pressure 129/74 O2 Saturation 98 Oxygen O2 Source Room air Procedures - General procedure General procedure: The fingernail was anesthetized with a digital block with 2 mL of buffered lidocaine in standard fashion, after that the nail was removed and the nailbed irrigated. There was no nailbed laceration, a dressing was placed with Xeroform gauze and loose tube gauze. Departure - Departure Disposition: 01 Home, Self Care Clinical Impression: Fingernail avulsion Qualifiers: Encounter type: initial encounter Qualified Code(s): S61.309A - Unspecified open wound of unspecified finger with damage to nail, initial encounter Condition: Good Record reviewed to determine appropriate education?: Yes Instructions: ED Avulsion Nail Complete Prescriptions: Hydrocodone/Acetaminophen [Hydrocodon-Acetaminophen 5-325] 1 - 2 each PO Q6H PRN #7 tablet PRN Reason: pain Comments: Keep the current dressing on until Sunday evening. After that you can wash with soap and water and keep it covered with bacitracin ointment and a Band-Aid.
== END 2019-07-04 15:57 | disposition home or self-care (01) ==
LOC: ED 13:26
DX: S61.304A Unspecified open wound of right ring finger with damage to nail, initial encounter (principal); X58.XXXA Exposure to other specified factors, initial encounter; Y93.89 Activity, other specified; F17.200 Nicotine dependence, unspecified, uncomplicated
CPT/HCPCS: 11730; 99283

== ENCOUNTER 2019-07-15 10:05 | Outpatient (CLI) | payer MEDICAID | END 2019-07-15 23:59 | disposition critical access hospital (66) | LOC: EMS 10:05 | PROVIDERS: ATTEND Surgery | DX: R10.9 Unspecified abdominal pain (principal); R11.2 Nausea with vomiting, unspecified | CPT/HCPCS: A0425; A0427 ==

== ENCOUNTER 2019-07-15 10:26 | Emergency (ER) | payer MEDICAID ==
[2019-07-15 11:21] LABS: GLUCOSE, URINE (UA) NEGATIVE (NEGATIVE); KETONES,URINE (UA) TRACE mg/dL (NEGATIVE); LEUKOCYTE ESTERASE, URINE NEGATIVE (NEGATIVE); NITRITE,URINE NEGATIVE (NEGATIVE); OCCULT BLOOD,URINE MODERATE (NEGATIVE); PROTEIN,URINE 30 mg/dL (NEGATIVE); UROBILINOGEN,URINE 0.2 (NORMAL) E.U./dL (NORMAL)
[2019-07-15 11:24] LABS: CLARITY,URINE HAZY (CLEAR); HCG UR QUAL NEGATIVE
[2019-07-15 11:26] LABS: BASOPHILS # (AUTO) 0.1 10^3/uL (0.0-0.1); BASOPHILS % (AUTO) 0.6 %; EOSINOPHILS # (AUTO) 0.2 10^3/uL (0.0-0.7); EOSINOPHILS % (AUTO) 1.3 %; HGB - HEMOGLOBIN 16.3 g/dL (12.0-16.0); LYMPHOCYTES # (AUTO) 0.9 10^3/uL (1.5-3.5); LYMPHOCYTES % (AUTO) 5.5 %; MEAN CORPUSCULAR HEMOGLOBIN 31.3 pg (27.0-31.0); MEAN CORPUSCULAR HGB CONC 35.1 g/dL (32.0-36.0); MEAN CORPUSCULAR VOLUME 89.2 fL (81.0-99.0); MEAN PLATELET VOLUME 9.5 fL (7.9-10.8); MONOCYTES # (AUTO) 0.8 10^3/uL (0.0-1.0); MONOCYTES % (AUTO) 5.3 %; NEUTROPHILS # (AUTO) 13.5 10^3/uL (1.5-6.6); NEUTROPHILS % (AUTO) 86.7 %; PLT - PLATELET COUNT 298 10^3/uL (130-450); RED CELL DISTRIBUTION WIDTH 11.9 % (12.0-15.0); WHITE BLOOD COUNT 15.6 x10^3/uL (4.8-10.8)
[2019-07-15 11:27] LABS: BILIRUBIN,URINE NEGATIVE (NEGATIVE); ICTOTEST,URINE NEGATIVE
[2019-07-15 11:34] LABS: ALBUMIN 4.3 g/dL (3.2-5.5); ALBUMIN/GLOBULIN RATIO 1.2 (1.0-2.2); BILIRUBIN,TOTAL 0.9 mg/dL (0.2-1.0); CALCIUM 9.2 mg/dL (8.5-10.3); CREATININE 0.6 mg/dL (0.4-1.0)
[2019-07-15 11:39] LABS: BACTERIA,URINE Moderate /HPF (None Seen); RBC,URINE 0-5 /HPF (0-5); SQUAMOUS EPITHELIAL CELL,UR MANY Squamous (<= Few)
[2019-07-15] MEDS ORDERED: ONDANSETRON 4 MG/2 ML VIAL IVP STA (12:06)
[2019-07-15] MEDS ORDERED: SODIUM CHLORIDE 0.9% 1,000 ML IV STA (12:06)
--- NOTE | 2019-07-15 12:11 | ED Physician Documentation ---
PD HPI NVD - Stated complaint Stated Complaint: ABD PAIN - Chief complaint Chief Complaint: Abd Pain - History obtained from History obtained from: Patient - History of Present Illness Timing - onset: Enter time (0600), Today Timing - duration: Hours Timing - details: Abrupt onset, Still present Associated symptoms: Abdominal pain Contributing factors: Bad food Improved by: Meds Worsened by: Eating Similar symptoms before: Diagnosis (food poisoning) Recently seen: Not recently seen - Additonal information Additional information: 31-year-old female awoke abruptly at 6 AM with acute nausea vomiting and diarrhea. She last remembers eating a cinnamon roll at midnight and had some Palestinian food at 9 PM. She is uncertain if any of this food may have been tainted. She has some epigastric abdominal pain she is had something like this happen to her previously more than once and about 2 months ago this is resolved spontaneously.She has had some relief with the Zofran provided in the ambulance. Review of Systems Constitutional: denies: Fever, Chills, Myalgias Eyes: denies: Decreased vision Ears: denies: Ear pain Nose: denies: Congestion Throat: denies: Sore throat Cardiac: denies: Chest pain / pressure, Palpitations Respiratory: denies: Dyspnea, Cough GI: reports: Abdominal Pain, Nausea, Vomiting, Diarrhea : denies: Dysuria, Frequency Skin: denies: Rash Musculoskeletal: denies: Neck pain, Back pain, Extremity pain PD PAST MEDICAL HISTORY - Past Medical History Cardiovascular: None, Arrhythmia Respiratory: Asthma Neuro: None, Seizure disorder Endocrine/Autoimmune: None, Other GI: None, 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 POTS - Past Surgical History Past Surgical History: Yes General: Cholecystectomy, Appendectomy - Present Medications Home Medications: Ambulatory Orders Medication Instructions Recorded Confirmed Gabapentin [Gralise] 1 each PO 07/04/19 Hydrocodone/Acetaminophen 1 - 2 each PO Q6H PRN #7 tablet 07/04/19 [Hydrocodon-Acetaminophen 5-325] Albuterol Sulfate [Proair Hfa 1 - 2 puffs INH Q4H PRN 07/15/19 07/15/19 Inhaler] Gabapentin 800 mg PO QID 05/26/20 05/26/20 Medroxyprogesterone Acetate 150 mg IM ONCE 07/15/19 07/15/19 [Depo-Provera] Ondansetron Odt [Zofran] 4 mg TL Q6H PRN #10 tablet 07/15/19 hydrOXYzine HCL [Hydroxyzine HCl] 25 mg PO DAILY PM 07/15/19 07/15/19 - Allergies Allergies/Adverse Reactions: Allergies Allergy/AdvReac Type Severity Reaction Status Date / Time ibuprofen Allergy Edema Verified 07/15/19 10:42 peanut Allergy Anaphylaxis Verified 07/15/19 10:42 pineapple Allergy Rash Verified 07/15/19 10:42 - Social History Does the pt smoke?: Yes Smoking Status: Current every day smoker Does the pt drink ETOH?: No Does the pt have substance abuse?: No - Immunizations Immunizations are current?: Yes - POLST Patient has POLST: No PD ED PE NORMAL - Vitals Vital signs reviewed: Yes (hypertensive ) - General General: Alert and oriented X 3, No acute distress - HEENT HEENT: Atraumatic, PERRL, EOMI - Neck Neck: Supple, no meningeal sign, No bony TTP - Cardiac Cardiac: RRR, No murmur - Respiratory Respiratory: No respiratory distress, Clear bilaterally - Abdomen Abdomen: Normal bowel sounds, Soft, Non distended, No organomegaly, Other (tender epigastrium is mild ) - Back Back: No CVA TTP, No spinal TTP - Derm Derm: Normal color, Warm and dry, No rash - Extremities Extremities: No deformity, No edema - Neuro Neuro: Alert and oriented X 3, spool hauler 2-12 intact, No motor deficit, No sensory deficit, Normal speech Eye Opening: Spontaneous Motor: Obeys Commands Verbal: Oriented GCS Score: 15 - Psych Psych: Normal mood, Normal affect Results - Vitals Vitals: Vital Signs - 24 hr 07/15/19 07/15/19 07/15/19 10:33 10:44 11:27 Temperature 36.9 C 36.8 C Heart Rate 99 98 91 Respiratory 18 18 16 Rate Blood Pressure 121/88 H 119/108 H 120/79 O2 Saturation 98 99 100 07/15/19 13:16 Temperature 36.7 C Heart Rate 85 Respiratory 16 Rate Blood Pressure 122/75 O2 Saturation 100 Oxygen O2 Source Room air - Labs Labs: Laboratory Tests 07/15/19 07/15/19 07/15/19 10:50 11:02 11:02 WBC 15.6 H RBC 5.20 Hgb 16.3 H Hct 46.4 MCV 89.2 MCH 31.3 H MCHC 35.1 RDW 11.9 L Plt Count 298 MPV 9.5 Neut # (Auto) 13.5 H Lymph # (Auto) 0.9 L Bowie # (Auto) 0.8 Eos # (Auto) 0.2 Baso # (Auto) 0.1 Absolute Nucleated RBC 0.00 Nucleated RBC % 0.0 Sodium 138 Potassium 3.1 L Chloride 105 Carbon Dioxide 22 Anion Gap 11.0 BUN 10 Creatinine 0.6 Estimated GFR (MDRD) 116 Glucose 114 H Calcium 9.2 Total Bilirubin 0.9 AST 17 ALT 16 Alkaline Phosphatase 59 Total Protein 8.0 Albumin 4.3 Globulin 3.7 Albumin/Globulin Ratio 1.2 Lipase 45 Urine Color DARK YELLOW Urine Clarity HAZY Urine pH 5.0 Ur Specific [place] >=1.030 H Urine Protein 30 H Urine Glucose (UA) NEGATIVE Urine Ketones TRACE Urine Occult Blood MODERATE H Urine Nitrite NEGATIVE Urine Bilirubin NEGATIVE Urine Urobilinogen 0.2 (NORMAL) Ur Leukocyte Esterase NEGATIVE Urine RBC 0-5 Urine WBC 0-3 Ur Squamous Epith Cells MANY Squamous H Urine Bacteria Moderate H Ur Microscopic Review INDICATED Urine Culture Comments NOT INDICATED Urine HCG, Qual NEGATIVE PD MEDICAL DECISION MAKING - ED course Complexity details: reviewed results, re-evaluated patient, considered differential, d/w patient ED course: 33-year-old female with nausea vomiting and diarrhea has a gastroenteritis may be food poisoning and she is administered Zofran with improvement she is administered saline and we will provide additional Zofran for her to use at home as needed. She feels improved. Departure - Departure Disposition: 01 Home, Self Care Clinical Impression: Gastroenteritis Condition: Stable Instructions: ED Gastroenteritis Vs Food Poison Follow-Up: SARAVANAN SUÁREZ MD [Physician No Access] - Prescriptions: Ondansetron Odt [Zofran] 4 mg TL Q6H PRN #10 tablet PRN Reason: Nausea / Vomiting Discharge Date/Time: 07/15/19 13:18
[2019-07-15] MEDS ORDERED: POTASSIUM CHLORIDE 20 MEQ TABLET PO STA (12:13)
[2019-07-15 13:17] VITALS: BP 122/75
== END 2019-07-15 13:18 | disposition home or self-care (01) ==
LOC: EDBD → MERGE 10:26 → ED 10:26
DX: K52.9 Noninfective gastroenteritis and colitis, unspecified (principal); F17.200 Nicotine dependence, unspecified, uncomplicated
CPT/HCPCS: 36415; 80053; 81001; 81025; 83690; 85025; 96374; 99283; 99284; A9270; 81003; 87086

== ENCOUNTER 2020-10-07 16:13 | Emergency (ER) | payer MEDICAID ==
[2020-10-07] MEDS ORDERED: HYDROcod/ACETAM 5/325 MG TABLET PO STA (16:41)
[2020-10-07] MEDS ORDERED: predniSONE 20 MG TABLET PO STA (16:41)
--- NOTE | 2020-10-07 16:43 | ED Physician Documentation ---
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 Worse with movement, better with rest. No fevers. No chills. No recent trauma. She states that occasionally she feels the tingling in her hands as well. She states she is looking down most of the day. She states that stretching helps. Denies any possibility of . Nothing makes it better or worse. 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: None : None HEENT: None Psych: Bipolar disorder, Depression, Anxiety Musculoskeletal: None, Other Derm: None - Past Surgical History Past Surgical History: Yes General: Cholecystectomy, Appendectomy - Present Medications Home Medications: Ambulatory Orders Medication Instructions Recorded Confirmed Gabapentin [Gralise] 1 each PO 07/04/19 Hydrocodone/Acetaminophen 1 - 2 each PO Q6H PRN #7 tablet 07/04/19 [Hydrocodon-Acetaminophen 5-325] Albuterol Sulfate [Proair Hfa 1 - 2 puffs INH Q4H PRN 07/15/19 07/15/19 Inhaler] Gabapentin 800 mg PO QID 07/15/19 07/15/19 Medroxyprogesterone Acetate 150 mg IM ONCE 07/15/19 07/15/19 [Depo-Provera] Ondansetron Odt [Zofran] 4 mg TL Q6H PRN #10 tablet 07/15/19 hydrOXYzine HCL [Hydroxyzine HCl] 25 mg PO DAILY PM 07/15/19 07/15/19 HYDROcod/ACETAM 5/325 [[place] 5/325] 1 - 2 ea PO Q6H PRN #14 tablet 10/07/20 predniSONE [Deltasone] 10 mg PO [id number] #42 tab 10/07/20 - Allergies Allergies/Adverse Reactions: Allergies Allergy/AdvReac Type Severity Reaction Status Date / Time ibuprofen Allergy Edema Verified 10/07/20 16:22 peanut Allergy Anaphylaxis Verified 10/07/20 16:22 pineapple Allergy Rash Verified 10/07/20 16:22 - Social History Does the pt smoke?: Yes Smoking Status: Current every day smoker Does the pt drink ETOH?: No Does the pt have substance abuse?: No - Immunizations Immunizations are current?: Yes - POLST Patient has POLST: No PD ED PE NORMAL - Vitals Vital signs reviewed: Yes - General General: Alert and oriented X 3, No acute distress - HEENT HEENT: Atraumatic, PERRL, Moist mucous membranes - Neck Neck: Supple, no meningeal sign, No bony TTP (no midline TTP, no step off or deformity. mild paraspinal spasm.) - Cardiac Cardiac: RRR - Respiratory Respiratory: No respiratory distress, Clear bilaterally - Derm Derm: Warm and dry - Extremities Extremities: No edema - Neuro Neuro: Alert and oriented X 3, typewriters functional tester 2-12 intact, No motor deficit, No sensory deficit - Psych Psych: Normal mood, Normal affect Results - Vitals Vitals: Vital Signs - 24 hr 10/07/20 10/07/20 16:17 17:09 Temperature 36.4 C L 36.6 C Heart Rate 126 H 95 Respiratory 16 16 Rate Blood Pressure 120/79 116/81 H O2 Saturation 99 100 Oxygen O2 Source Room air PD MEDICAL DECISION MAKING - ED course Complexity details: reviewed results, re-evaluated patient, considered differential, d/w patient ED course: Patient symptoms are consistent with cervical radiculopathy. No indication for imaging at this time. Will place on a steroid taper and pain medication for home. Patient is well-appearing, nontoxic. Afebrile. Counseled regarding biomechanical changes to help with her neck discomfort. We will have her follow-up with her PCP for further care. Patient counseled regarding signs and symptoms for which I believe and urgent re-evaluation would be necessary. Patient with good understanding of and agreement to plan and is comfortable going home at this time This document was made in part using voice recognition software. While efforts are made to proofread this document, sound alike and grammatical errors may occur. Departure - Departure Disposition: 01 Home, Self Care Clinical Impression: Cervical radiculopathy Condition: Good Instructions: ED Cervical Radiculopathy Follow-Up: your,doctor in 1 week [Other] Prescriptions: predniSONE [Deltasone] 10 mg PO [id number] #42 tab HYDROcod/ACETAM 5/325 [[place] 5/325] 1 - 2 ea PO Q6H PRN #14 tablet PRN Reason: Pain Comments: Please follow-up with your doctor for further care. Return if you worsen. Continue gentle stretching of your neck. 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 Physical therapy may help you as well, this referral will need to be made by your doctor. I am prescribing a short course of narcotic pain medication for you. These are potentially dangerous and addictive medications that should be used carefully. These medications may constipate you. Take an [id number] stool softener (docusate) twice daily with plenty of water while taking these medications. If you go 24 hours without a bowel movement, take [id number] miralax, per package instructions. Do not drink or drive while taking these medications. If you received narcotic or sedating medications while in the emergency department, do not drive for 24 hours. Store this medication in a safe, secure place and out of reach of children. It is a violation of federal law to give or sell this medication to another person or to use in a manner other than prescribed. The ED will not refill narcotic prescriptions, including prescriptions lost or stolen. To dispose of unwanted medications: 1. [facility] at [address] [facility] in [place] has a medication drop box. They accept prescription medications (in pill form) Sunday through Sunday 9:00 a.m. to 5:00 p.m. 2. The [facility] [employer] accepts prescription medications (in pill form only) for disposal year round. Call for more information. 3. Contact the [facility] for the next [facility] sponsored prescription drug collection event. , [phone], or [phone]; Discharge Date/Time: 10/07/20 17:10
[2020-10-07 17:10] VITALS: BP 116/81
== END 2020-10-07 17:10 | disposition home or self-care (01) ==
LOC: ED 16:13
DX: M54.12 Radiculopathy, cervical region (principal); F17.200 Nicotine dependence, unspecified, uncomplicated
CPT/HCPCS: 99282; 99284; A9270; J7512

== ENCOUNTER 2020-10-12 21:04 | Emergency (ER) | payer MEDICAID ==
[2020-10-13] MEDS ORDERED: ACETAMINOPHEN 325 MG TABLET PO STA (02:17)
--- NOTE | 2020-10-13 02:20 | ED Physician Documentation ---
History of Present Illness - Stated complaint Stated Complaint: SOA, LUNG PX, BODILY PX - Chief complaint Chief Complaint: General - History obtained from History obtained from: Patient - History of Present Illness Timing: How many weeks ago (8) - Additonal information Additional information: 35-year-old female who reports 2 months worth of aching and pain in her neck and hands. She has now developed pain to her entire body. She reports that she was seen yesterday by her primary care doctor where they did blood work and follow- up for wound she was seen here in the emergency department and at that time they gave her Gardasil as well. She has had her first dose of Moderna vaccine last month when this began. Review of Systems Constitutional: denies: Fever Eyes: denies: Decreased vision Ears: denies: Ear pain Nose: denies: Congestion Throat: denies: Sore throat Cardiac: reports: Chest pain / pressure. denies: Palpitations, Pedal edema, Calf pain Respiratory: reports: Dyspnea, Wheezing. denies: Cough GI: denies: Abdominal Pain, Nausea, Vomiting : denies: Dysuria, Frequency Skin: denies: Rash Musculoskeletal: reports: Neck pain, Extremity pain Neurologic: reports: Numbness (to the hands). 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 HEENT: None Psych: Bipolar disorder, Depression, Anxiety Musculoskeletal: None, Other Derm: None - Past Surgical History Past Surgical History: Yes General: Cholecystectomy, Appendectomy - Present Medications Home Medications: Ambulatory Orders Medication Instructions Recorded Confirmed Gabapentin [Gralise] 1 each PO 07/04/19 Hydrocodone/Acetaminophen 1 - 2 each PO Q6H PRN #7 tablet 07/04/19 [Hydrocodon-Acetaminophen 5-325] Albuterol Sulfate [Proair Hfa 1 - 2 puffs INH Q4H PRN 07/15/19 07/15/19 Inhaler] Gabapentin 800 mg PO QID 07/15/19 07/15/19 Medroxyprogesterone Acetate 150 mg IM ONCE 07/15/19 07/15/19 [Depo-Provera] Ondansetron Odt [Zofran] 4 mg TL Q6H PRN #10 tablet 07/15/19 hydrOXYzine HCL [Hydroxyzine HCl] 25 mg PO DAILY PM 07/15/19 07/15/19 HYDROcod/ACETAM 5/325 [[place] 5/325] 1 - 2 ea PO Q6H PRN #14 tablet 10/07/20 predniSONE [Deltasone] 10 mg PO [id number] #42 tab 10/07/20 traMADol [Ultram] 50 - 100 mg PO Q6H PRN #20 tablet 10/13/20 - Allergies Allergies/Adverse Reactions: Allergies Allergy/AdvReac Type Severity Reaction Status Date / Time ibuprofen Allergy Edema Verified 10/12/20 21:15 peanut Allergy Anaphylaxis Verified 10/12/20 21:15 pineapple Allergy Rash Verified 10/12/20 21:15 - Social History Does the pt smoke?: Yes Smoking Status: Current every day smoker Does the pt drink ETOH?: No Does the pt have substance abuse?: No - Immunizations Immunizations are current?: Yes - POLST Patient has POLST: No PD ED PE NORMAL - Vitals Vital signs reviewed: Yes (hypertensive ) - General General: Alert and oriented X 3, No acute distress, Well developed/nourished - HEENT HEENT: Atraumatic, PERRL, EOMI - Neck Neck: Supple, no meningeal sign, No bony TTP - Cardiac Cardiac: RRR, No murmur - Respiratory Respiratory: No respiratory distress, Other (diminished breath sounds. ) - Abdomen Abdomen: Soft, Non tender - Back Back: No CVA TTP, No spinal TTP - Derm Derm: Normal color, Warm and dry, No rash - Extremities Extremities: No deformity, No edema, Other (There is pain to the hand and forearm with palpaiton of the median nerve on the right. 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, No motor deficit, No sensory deficit, Normal speech Eye Opening: Spontaneous Motor: Obeys Commands Verbal: Oriented GCS Score: 15 - Psych Psych: Normal mood, Normal affect Results - Vitals Vitals: Vital Signs - 24 hr 10/12/20 10/13/20 10/13/20 21:15 02:00 04:21 Temperature 36.5 C 36.7 C 36.7 C Heart Rate 100 82 79 Respiratory 16 16 16 Rate Blood Pressure 133/89 H 124/88 H 121/82 H O2 Saturation 99 100 99 Oxygen O2 Source Room air - Labs Labs: Laboratory Tests 10/13/20 10/13/20 10/13/20 02:26 02:26 02:26 WBC 9.8 RBC 4.82 Hgb 15.0 Hct 42.5 MCV 88.2 MCH 31.1 H MCHC 35.3 RDW 12.2 Plt Count 308 MPV 9.1 Neut # (Auto) 7.4 H Lymph # (Auto) 2.0 [place] # (Auto) 0.4 Eos # (Auto) 0.0 Baso # (Auto) 0.0 Absolute Nucleated RBC 0.00 Nucleated RBC % 0.0 ESR 1 Sodium 137 Potassium 3.8 Chloride 101 Carbon Dioxide 27 Anion Gap 9.0 BUN 10 Creatinine 0.5 Estimated GFR (MDRD) 141 Glucose 114 H Calcium 9.2 Total Bilirubin 0.8 AST 15 ALT 20 Alkaline Phosphatase 41 L C-Reactive Protein < 1.0 Total Protein 7.6 Albumin 4.3 Globulin 3.3 Albumin/Globulin Ratio 1.3 Lipase 49 PD MEDICAL DECISION MAKING - ED course Complexity details: reviewed results, re-evaluated patient, considered differential, d/w patient ED course: 35-year-old female with complaints of generalized pain and complaints that are most consistent with carpal tunnel. 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 She certainly has pain with tapping on the median nerve. She did not have any improvement with any of this with use of prednisone or pain medications she is not eating much relief of this with ibuprofen or Tylenol. She did not get much relief here in the emergency department as well.This morning we will try some tramadol. I suspect her overall pain may be related to her immunizations. Departure - Departure Disposition: 01 Home, Self Care Clinical Impression: Generalized muscle ache, Carpal tunnel syndrome of right wrist Condition: Stable Instructions: ED Carpal Tunnel, ED Muscle Aching Follow-Up: Tino Soto MD [Provider Admit Priv/Credential] - Prescriptions: traMADol [Ultram] 50 - 100 mg PO Q6H PRN #20 tablet PRN Reason: Pain Discharge Date/Time: 10/13/20 04:21
[2020-10-13 02:32] LABS: BASOPHILS % (AUTO) 0.1 %; EOSINOPHILS % (AUTO) 0.1 %; HCT - HEMATOCRIT 42.5 % (37.0-47.0); MEAN CORPUSCULAR HEMOGLOBIN 31.1 pg (27.0-31.0); MEAN CORPUSCULAR HGB CONC 35.3 g/dL (32.0-36.0); MEAN CORPUSCULAR VOLUME 88.2 fL (81.0-99.0); MEAN PLATELET VOLUME 9.1 fL (7.9-10.8); MONOCYTES # (AUTO) 0.4 10^3/uL (0.0-1.0); NEUTROPHILS # (AUTO) 7.4 10^3/uL (1.5-6.6); NEUTROPHILS % (AUTO) 75.5 %; PLT - PLATELET COUNT 308 10^3/uL (130-450); RED BLOOD COUNT 4.82 10^6/uL (4.20-5.40); RED CELL DISTRIBUTION WIDTH 12.2 % (12.0-15.0); WHITE BLOOD COUNT 9.8 x10^3/uL (4.8-10.8)
[2020-10-13 02:58] LABS: ALBUMIN 4.3 g/dL (3.2-5.5); ALBUMIN/GLOBULIN RATIO 1.3 (1.0-2.2); ALKALINE PHOSPHATASE 41 IU/L (42-121); ALT ALANINE AMINOTRANSFERASE 20 IU/L (10-60); AST ASPARTATE AMINOTRANSFERASE 15 IU/L (10-42); BILIRUBIN,TOTAL 0.8 mg/dL (0.2-1.0); BUN - BLOOD UREA NITROGEN 10 mg/dL (6-20); CALCIUM 9.2 mg/dL (8.5-10.3); CARBON DIOXIDE - CO2 27 mmol/L (21-32); CHLORIDE 101 mmol/L (101-111); CREATININE 0.5 mg/dL (0.4-1.0); GFR - MDRD 141 (>89); GLUCOSE 114 mg/dL (70-100); LIPASE 49 U/L (22-51); POTASSIUM 3.8 mmol/L (3.5-5.0); SODIUM 137 mmol/L (135-145); TOTAL PROTEIN 7.6 g/dL (6.7-8.2)
[2020-10-13 03:17] LABS: CRP - C-REACTIVE PROTEIN < 1.0 mg/dL (0-1.0)
[2020-10-13] MEDS ORDERED: traMADol 50 MG TABLET PO STA (04:13)
[2020-10-13 04:22] VITALS: BP 121/82
--- NOTE | 2020-10-13 08:34 | XRAY Report ---
PROCEDURE: Chest 1 View X-Ray INDICATIONS: Chest pain TECHNIQUE: One view of the chest was acquired. COMPARISON: 05/27/2017 FINDINGS: Surgical changes and devices: None. Lungs and pleura: No pleural effusions or pneumothorax. Lungs are clear. Mediastinum: Mediastinal contours appear normal. Heart size is normal. Bones and chest wall: No suspicious bony lesions. Overlying soft tissues appear unremarkable. IMPRESSION: No acute cardiopulmonary process demonstrated radiographically. No significant change from preliminar y report. Reviewed by: Issac Mendoza MD on 10/13/2020 8:33 AM PDT Approved by: Issac Mendoza MD on 10/13/2020 8:33 AM PDT Station ID: [id number]
== END 2020-10-13 04:21 | disposition home or self-care (01) ==
LOC: ED 21:04
DX: M79.10 Myalgia, unspecified site (principal); G56.01 Carpal tunnel syndrome, right upper limb; F17.200 Nicotine dependence, unspecified, uncomplicated
CPT/HCPCS: 36415; 71045; 80053; 83690; 85025; 85651; 86140; 99283; 99284; A9270

== ENCOUNTER 2021-12-27 09:54 | Outpatient (CLI) | payer MEDICAID | END 2021-12-27 09:55 | disposition short-term general hospital (02) | LOC: EMS 09:54 | DX: R11.10 Vomiting, unspecified (principal); R10.84 Generalized abdominal pain; R07.9 Chest pain, unspecified; R00.0 Tachycardia, unspecified | CPT/HCPCS: A0425; A0427; A0999 ==

== ENCOUNTER 2023-03-19 20:43 | Emergency (ER) | payer MEDICAID ==
--- NOTE | 2023-03-19 21:18 | ED Physician Documentation ---
History of Present Illness - Stated complaint Stated Complaint: DIFFICULTY SWALLOWING/DIZZY - Chief complaint Chief Complaint: Heent - History obtained from History obtained from: Patient - Additonal information Additional information: HPI from patient. Patient states "I am having difficulty swallowing food and saliva". Patient says this started approximately 12 hours ago. This is resulted in decreased p.o. intake because of the difficulty swallowing which she says is due to pain when she swallows; she says the pain is from the back of her throat all the way down to the midline mid/low chest. Since this afternoon, she is noting dizziness when standing/ambulating. Patient says her past medical history includes POTS and that she thinks the decreased p.o. intake is contributing to the dizziness that she associates with her POTS. Shortly after eating food at a restaurant last night, patient became short of breath which did not improve with MDI albuterol. She says that along with the dyspnea , she had upper and lower lip swelling, leading her to suspect allergic reaction (she does have food allergies). 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 Denies wheezing. Denies fever. Review of Systems Constitutional: denies: Fever, Chills, Myalgias, Sweats Throat: reports: Sore throat Cardiac: reports: Reviewed and negative Respiratory: reports: Dyspnea, Cough. 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 HEENT: None Psych: Bipolar disorder, Depression, Anxiety Musculoskeletal: None, Other Derm: None - Past Surgical History Past Surgical History: Yes General: Cholecystectomy, Appendectomy - Present Medications Home Medications: Ambulatory Orders Medication Instructions Recorded Confirmed Gabapentin [Gralise] 1 each PO 07/04/19 Hydrocodone/Acetaminophen 1 - 2 each PO Q6H PRN #7 tablet 07/04/19 [Hydrocodon-Acetaminophen 5-325] Albuterol Sulfate [Proair Hfa 1 - 2 puffs INH Q4H PRN 07/15/19 07/15/19 Inhaler] Gabapentin 800 mg PO QID 07/15/19 07/15/19 Medroxyprogesterone Acetate 150 mg IM ONCE 07/15/19 07/15/19 [Depo-Provera] Ondansetron Odt [Zofran] 4 mg TL Q6H PRN #10 tablet 07/15/19 hydrOXYzine HCL [Hydroxyzine HCl] 25 mg PO DAILY PM 07/15/19 07/15/19 HYDROcod/ACETAM 5/325 [[place] 5/325] 1 - 2 ea PO Q6H PRN #14 tablet 10/07/20 predniSONE [Deltasone] 10 mg PO [id number] #42 tab 10/07/20 traMADol [Ultram] 50 - 100 mg PO Q6H PRN #20 tablet 10/13/20 Amox/Clav 875/125 [Augmentin] 1 each PO Q12H #20 tablet 09/23/21 EPINEPHrine [Epinephrine] 0.3 mg IJ ONCE PRN #2 each 03/20/23 Lidocaine Viscous 2% [Xylocaine 5 ml MM Q4H PRN #100 ml 03/20/23 Viscous 2%] Omeprazole Magnesium 20 mg PO DAILY #14 tab 03/20/23 - Allergies Allergies/Adverse Reactions: Allergies Allergy/AdvReac Type Severity Reaction Status Date / Time ibuprofen Allergy Edema Verified 03/19/23 20:49 peanut Allergy Anaphylaxis Verified 03/19/23 20:49 pineapple Allergy Rash Verified 03/19/23 20:49 - Social History Does the pt smoke?: Yes Smoking Status: Current every day smoker Does the pt drink ETOH?: No Does the pt have substance abuse?: No - Immunizations Immunizations are current?: Yes - POLST Patient has POLST: No PD ED PE NORMAL - Vitals Vital signs reviewed: Yes - General General: Alert and oriented X 3, No acute distress, Well developed/nourished - HEENT HEENT: Moist mucous membranes, Pharynx benign, Other (no nabil/intraoral edema (including lips, tongue, posterior o/p)) - Neck Neck: Supple, no meningeal sign - Cardiac Cardiac: No murmur - Respiratory Respiratory: No respiratory distress, Clear bilaterally - Abdomen Abdomen: Soft, Non tender, Non distended - Derm Derm: Normal color, Warm and dry - Extremities Extremities: No edema PD ED PE EXPANDED - Cardiac Cardiac: Tachy, Regular Rhythm Results - Vitals Vitals: Vital Signs - 24 hr 03/19/23 03/19/23 03/20/23 20:49 20:51 01:00 Temperature 36.8 C 36.8 C Heart Rate 145 H 145 H 109 H Respiratory 16 16 16 Rate Blood Pressure 129/97 H 129/97 H 111/79 O2 Saturation 98 98 97 Oxygen O2 Source Room air - Labs Labs: Laboratory Tests 03/19/23 03/19/23 03/19/23 21:57 21:57 23:01 WBC 6.1 RBC 4.34 Hgb 13.6 Hct 39.2 MCV 90.3 MCH 31.3 H MCHC 34.7 RDW 12.0 Plt Count 287 MPV 9.2 Neut # (Auto) 3.5 Lymph # (Auto) 2.1 [place] # (Auto) 0.4 Eos # (Auto) 0.1 Baso # (Auto) 0.1 Absolute Nucleated RBC 0.00 Nucleated RBC % 0.0 Sodium 137 Potassium 3.6 Chloride 105 Carbon Dioxide 26 Anion Gap 6.0 BUN 7 Creatinine 0.5 L Estimated GFR (MDRD) 140 Glucose 107 H Calcium 9.4 Total Bilirubin 0.8 AST 14 ALT 12 Alkaline Phosphatase 46 Total Protein 7.0 Albumin 4.5 Globulin 2.5 Albumin/Globulin Ratio 1.8 Lipase 46 Nasal Adenovirus (PCR) Nasal B. parapertussis DNA (PCR) Nasal Coronavir 229E PCR Nasal Coronavir HKU1 PCR Nasal Coronavir NL63 PCR Nasal Coronavir OC43 PCR Nasal Enterovir/Rhinovir PCR Nasal Influenza B PCR Nasal Influenza A PCR Nasal Parainfluen 1 PCR Nasal Parainfluen 2 PCR Nasal Parainfluen 3 PCR Nasal Parainfluen 4 PCR Nasal RSV (PCR) Nasal B.pertussis DNA PCR Nasal C.pneumoniae (PCR) [place] Human Metapneumo PCR Nasal M.pneumoniae (PCR) Nasal SARS-CoV-2 (PCR) Group A Strep Rapid Negative 03/19/23 23:01 WBC RBC Hgb Hct MCV MCH MCHC RDW Plt Count MPV Neut # (Auto) Lymph # (Auto) [place] # (Auto) Eos # (Auto) Baso # (Auto) Absolute Nucleated RBC Nucleated RBC % Sodium Potassium Chloride Carbon Dioxide Anion Gap BUN Creatinine Estimated GFR (MDRD) Glucose Calcium Total Bilirubin AST ALT Alkaline Phosphatase Total Protein Albumin Globulin Albumin/Globulin Ratio Lipase Nasal Adenovirus (PCR) NOT DETECTED Nasal B. parapertussis DNA (PCR) NOT DETECTED Nasal Coronavir 229E PCR NOT DETECTED Nasal Coronavir HKU1 PCR NOT DETECTED Nasal Coronavir NL63 PCR NOT DETECTED Nasal Coronavir OC43 PCR NOT DETECTED Nasal Enterovir/Rhinovir PCR NOT DETECTED Nasal Influenza B PCR NOT DETECTED Nasal Influenza A PCR NOT DETECTED Nasal Parainfluen 1 PCR NOT DETECTED Nasal Parainfluen 2 PCR NOT DETECTED Nasal Parainfluen 3 PCR NOT DETECTED Nasal Parainfluen 4 PCR NOT DETECTED Nasal RSV (PCR) NOT DETECTED Nasal B.pertussis DNA PCR NOT DETECTED Nasal C.pneumoniae (PCR) NOT DETECTED [place] Human Metapneumo PCR NOT DETECTED Nasal M.pneumoniae (PCR) NOT DETECTED Nasal SARS-CoV-2 (PCR) NOT DETECTED Group A Strep Rapid PD Medical Decision Making - ED course Complexity details: reviewed results, re-evaluated patient, considered diff erential, d/w patient ED course: IV established and patient is given 1 L normal saline IV, 125 mg Solu-Medrol IV, 40mg protonix IV, and p.o. Maalox/viscous lidocaine. Normal CBC, ER abdominal panel. Respiratory PCR panel is negative for the viruses tested on this panel. Her rapid strep test is negative, as well. On reevaluation, patient is in NAD and reports feeling much better after the above interventions (fluids and medications). She says she is able to lie supine without worsening of symptoms, as well as swallowing without any recurrence of the symptoms. The cause of her symptoms not apparent at this time. 1 potential scenario could be allergic reaction to the food she had yesterday causing the lip swelling and difficulty breathing, possibly aggravating underlying GERD in the overnight period which could in turn have resulted in esophagitis. Test results discussed with patient, return precautions are reviewed. I have electronically submitted prescriptions for the viscous lidocaine as well as a 2-week course of daily omeprazole and EpiPen to her pharmacy of choice. The EpiPen prescription is result of patient asking if this would be a beneficial medication to have on-hand. This is a reasonable request given the known food allergies (whether or not this was the nidus for the her current symptoms), and I reviewed with her some of the indications for use of an epi-pen (such as swelling of the lips, tongue, throat, sensation of throat or chest constriction, shortness of breath). Departure - Departure Disposition: 01 Home, Self Care Clinical Impression: Dyspnea Qualifiers: Dyspnea type: unspecified Qualified Code(s): R06.00 - Dyspnea, unspecified Dysphagia Qualifiers: Dysphagia type: unspecified Qualified Code(s): R13.10 - Dysphagia, unspecified Condition: Good Instructions: EpiPen Auto Injector Dc, ED Dyspnea Shortness of Breath Follow-Up: Gisele Zarate MD [Primary Care Provider] - Prescriptions: EPINEPHrine [Epinephrine] 0.3 mg IJ ONCE PRN #2 each PRN Reason: Anaphylaxis Omeprazole Magnesium 20 mg PO DAILY #14 tab Lidocaine Viscous 2% [Xylocaine Viscous 2%] 5 ml MM Q4H PRN #100 ml PRN Reason: Heartburn Comments: There were no concerning nor diagnostic findings on tonight's test, including the blood tests and the throat and nasal swabs. You tested negative for strep throat, and a nasal swab was negative for a panel of viruses including COVID, influenza, and RSV. The cause of your symptoms is not apparent at this time. As we discussed, 1 possibility is that you had an allergic reaction to the food you ate yesterday, which might have worsened your reflux/heartburn overnight, causing the pain with swallowing. Reflux that causes inflammation of the esophagus is called esophagitis, and this is 1 possible explanation for the difficulty you are having and swallowing. Follow-up with your primary care provider. If your symptoms persist, further tests might be indicated such as an upper endoscopy. I am providing you with prescriptions for an acid-blocking medication which you should take once daily for 2 weeks, viscous lidocaine (the numbing agent for your throat and esophagus), and epi-pen. You can use the lidocaine if you are having pain with swallowing again; as we discussed, it would be best to mix the dose of lidocaine with a dose of liquid Maalox or Mylanta (following label instructions) to help disguise the medicinal taste of the lidocaine. Only use the EpiPen for anaphylactic symptoms (such as difficulty breathing, swelling of the lips and/or tongue, or sensation of throat constriction). If you have further questions about the use of the EpiPen, you can ask the pharmacist when you fiber picker the prescription. Forms: PCP List Discharge Date/Time: 03/20/23 01:15
[2023-03-19 22:04] LABS: BASOPHILS # (AUTO) 0.1 10^3/uL (0.0-0.1); BASOPHILS % (AUTO) 0.8 %; EOSINOPHILS # (AUTO) 0.1 10^3/uL (0.0-0.7); HCT - HEMATOCRIT 39.2 % (37.0-47.0); HGB - HEMOGLOBIN 13.6 g/dL (12.0-16.0); LYMPHOCYTES # (AUTO) 2.1 10^3/uL (1.5-3.5); LYMPHOCYTES % (AUTO) 34.5 %; MEAN CORPUSCULAR HEMOGLOBIN 31.3 pg (27.0-31.0); MEAN CORPUSCULAR HGB CONC 34.7 g/dL (32.0-36.0); MEAN CORPUSCULAR VOLUME 90.3 fL (81.0-99.0); MEAN PLATELET VOLUME 9.2 fL (7.9-10.8); MONOCYTES # (AUTO) 0.4 10^3/uL (0.0-1.0); MONOCYTES % (AUTO) 6.6 %; NEUTROPHILS # (AUTO) 3.5 10^3/uL (1.5-6.6); NEUTROPHILS % (AUTO) 56.9 %; PLT - PLATELET COUNT 287 10^3/uL (130-450); RED BLOOD COUNT 4.34 10^6/uL (4.20-5.40); WHITE BLOOD COUNT 6.1 x10^3/uL (4.8-10.8)
[2023-03-19] MEDS: MAG HYDROX/AL HYDROX/SIMETH 30 ML UDC PO STA (22:10)
[2023-03-19] MEDS: LIDOCAINE VISCOUS 2% 15 ML ORAL SYRINGE MM STA (22:10)
[2023-03-19] MEDS: methylPREDNISolone SUCCINATE 125 MG/2 ML VIAL IVP STA (22:10)
[2023-03-19] MEDS: SODIUM CHLORIDE 0.9% 1,000 ML IV STA (22:11)
[2023-03-19] MEDS: PANTOPRAZOLE 40 MG VIAL IVP STA ×2 (22:12→22:21)
[2023-03-19 22:31] LABS: ALBUMIN 4.5 g/dL (3.2-5.5); ALBUMIN/GLOBULIN RATIO 1.8 (1.0-2.2); BILIRUBIN,TOTAL 0.8 mg/dL (0.2-1.0); CALCIUM 9.4 mg/dL (8.5-10.3); CREATININE 0.5 mg/dL (0.6-1.3); POTASSIUM 3.6 mmol/L (3.5-4.5)
[2023-03-19 23:20] LABS: RAPID STREP SCREEN Negative (Negative)
[2023-03-20 00:13] LABS: B. PARAPERTUSSIS- RESP PCR PAN NOT DETECTED; B. PERTUSSIS- RESP PCR PANEL NOT DETECTED; C. PNEUMONIAE- RESP PCR PANEL NOT DETECTED; CORONAVIRUS 229E-RESP PCR NOT DETECTED; CORONAVIRUS HKU1-RESP PCR NOT DETECTED; CORONAVIRUS NL63-RESP PCR NOT DETECTED; CORONAVIRUS OC43-RESP PCR NOT DETECTED; HUMAN METAPNEUMOVIRUS NOT DETECTED; INFLUENZA A- RESP PCR PANEL NOT DETECTED; INFLUENZA B - RESP PCR PANEL NOT DETECTED; M. PNEUMONIAE- RESP PCR PANEL NOT DETECTED; PARAINFLUENZA VIRUS 1 NOT DETECTED; PARAINFLUENZA VIRUS 2 NOT DETECTED; PARAINFLUENZA VIRUS 3 NOT DETECTED; PARAINFLUENZA VIRUS 4 NOT DETECTED; RHINOVIRUS/ENTEROVIRUS NOT DETECTED; RSV- RESP PCR PANEL NOT DETECTED; SARS-CoV-2 -RESP PCR PANEL NOT DETECTED
[2023-03-20 02:14] VITALS: BP 111/79; O2SAT 97
== END 2023-03-20 01:15 | disposition home or self-care (01) ==
LOC: ED 20:43
DX: R06.00 Dyspnea, unspecified (principal); R13.10 Dysphagia, unspecified; F17.200 Nicotine dependence, unspecified, uncomplicated; Z79.899 Other long term (current) drug therapy; Z79.3 Long term (current) use of hormonal contraceptives
CPT/HCPCS: 36415; 80053; 83690; 85025; 87070; 87430; 87633; 96374; 96375; 99283; 99284; A9270

== ENCOUNTER 2023-10-06 19:43 | Emergency (ER) | payer MEDICAID ==
--- NOTE | 2023-10-06 20:18 | ED Physician Documentation ---
PD HPI MHE - Stated complaint Stated Complaint: BODY NUMB/DIZZY - Chief complaint Chief Complaint: MHE - History obtained from History obtained from: Patient - Additional information Additional information: HPI from patient. Patient says she is feeling suicidal over the past few days. She reports both visual and auditory hallucinations. She tells me that, at times, the auditory hallucinations mocked any devalue her, sometimes telling her she should jump off of the bridge. Patient says she has been on prescription medication in the past for depression, suicidality, and hallucinations but stopped them several years ago as she was feeling better even when she stopped taking them. 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 : None HEENT: None Psych: Bipolar disorder, Depression, Anxiety Musculoskeletal: Fibromyalgia, Other Derm: None - Past Surgical History Past Surgical History: Yes General: Cholecystectomy, Appendectomy - Present Medications Home Medications: Ambulatory Orders Medication Instructions Recorded Confirmed Gabapentin [Gralise] 1 each PO 07/04/19 Hydrocodone/Acetaminophen 1 - 2 each PO Q6H PRN #7 tablet 07/04/19 [Hydrocodon-Acetaminophen 5-325] Albuterol Sulfate [Proair Hfa 1 - 2 puffs INH Q4H PRN 07/15/19 07/15/19 Inhaler] Gabapentin 800 mg PO QID 07/15/19 07/15/19 Medroxyprogesterone Acetate 150 mg IM ONCE 07/15/19 07/15/19 [Depo-Provera] Ondansetron Odt [Zofran] 4 mg TL Q6H PRN #10 tablet 07/15/19 hydrOXYzine HCL [Hydroxyzine HCl] 25 mg PO DAILY PM 07/15/19 07/15/19 HYDROcod/ACETAM 5/325 [[place] 5/325] 1 - 2 ea PO Q6H PRN #14 tablet 10/07/20 predniSONE [Deltasone] 10 mg PO [id number] #42 tab 10/07/20 traMADol [Ultram] 50 - 100 mg PO Q6H PRN #20 tablet 10/13/20 Amox/Clav 875/125 [Augmentin] 1 each PO Q12H #20 tablet 09/23/21 EPINEPHrine [Epinephrine] 0.3 mg IJ ONCE PRN #2 each 03/20/23 Lidocaine Viscous 2% [Xylocaine 5 ml MM Q4H PRN #100 ml 03/20/23 Viscous 2%] Omeprazole Magnesium 20 mg PO DAILY #14 tab 03/20/23 - Allergies Allergies/Adverse Reactions: Allergies Allergy/AdvReac Type Severity Reaction Status Date / Time peanut Allergy Anaphylaxis Verified 10/06/23 19:56 pineapple Allergy Rash Verified 10/06/23 19:56 - Social History Does the pt smoke?: Yes Smoking Status: Current every day smoker Does the pt drink ETOH?: No Does the pt have substance abuse?: No - Immunizations Immunizations are current?: Yes - POLST Patient has POLST: No PD ED PE NORMAL - Vitals Vital signs reviewed: Yes - General General: Alert and oriented X 3, No acute distress, Well developed/nourished - HEENT HEENT: PERRL, EOMI - Neck Neck: Supple, no meningeal sign - Cardiac Cardiac: RRR, No murmur - Respiratory Respiratory: No respiratory distress, Clear bilaterally - Neuro Neuro: Alert and oriented X 3 Eye Opening: Spontaneous Motor: Obeys Commands Verbal: Oriented GCS Score: 15 PD ED PE EXPANDED - Psych Psych: Tearful Results - Vitals Vitals: Vital Signs - 24 hr 10/06/23 10/06/23 10/07/23 19:47 20:24 04:00 Temperature 36.9 C Heart Rate 130 H 130 H 98 Respiratory 18 18 Rate Blood Pressure 132/84 H 131/78 H O2 Saturation 98 98 10/07/23 07:33 Temperature 36.8 C Heart Rate 88 Respiratory 18 Rate Blood Pressure 108/76 O2 Saturation 100 Oxygen O2 Source Room air - Labs Labs: Laboratory Tests 10/06/23 10/06/23 10/06/23 20:26 20:26 20:31 WBC 6.8 RBC 4.20 Hgb 13.4 Hct 37.9 MCV 90.2 MCH 31.9 H MCHC 35.4 RDW 11.6 L Plt Count 249 MPV 9.4 Neut # (Auto) 4.0 Lymph # (Auto) 2.3 [place] # (Auto) 0.4 Eos # (Auto) 0.1 Baso # (Auto) 0.1 Absolute Nucleated RBC 0.00 Nucleated RBC % 0.0 Sodium 138 Potassium 3.5 Chloride 103 Carbon Dioxide 28 Anion Gap 7.0 BUN 9 Creatinine 0.6 Estimated GFR (MDRD) 112 Glucose 93 Calcium 9.0 Magnesium 1.6 L Total Bilirubin 0.8 AST 13 ALT 10 Alkaline Phosphatase 37 L Total Creatine Kinase 66 Total Protein 6.3 L Albumin 4.4 Globulin 1.9 L Albumin/Globulin Ratio 2.3 H Lipase 31 TSH 0.80 Urine Color Urine Clarity Urine pH Ur Specific [place] Urine Protein Urine Glucose (UA) Urine Ketones Urine Occult Blood Urine Nitrite Urine Bilirubin Urine Urobilinogen Ur Leukocyte Esterase Ur Microscopic Review Urine Culture Comments Urine HCG, Qual Salicylates < 1.5 Urine Opiates Screen Ur Buprenorphine Scrn Ur Oxycodone Screen Urine Methadone Screen Acetaminophen 0.7 Ur Barbiturates Screen Ur Tricyclics Screen Ur Phencyclidine Scrn Ur Amphetamine Screen U Methamphetamines Scrn U Benzodiazepines Scrn Urine Cocaine Screen U Cannabinoids Screen Ur Drug Screen Comment Ethyl Alcohol < 10.0 SARS-CoV-2 (PCR) NOT DETECTED 10/06/23 20:37 WBC RBC Hgb Hct MCV MCH MCHC RDW Plt Count MPV Neut # (Auto) Lymph # (Auto) [place] # (Auto) Eos # (Auto) Baso # (Auto) Absolute Nucleated RBC Nucleated RBC % Sodium Potassium Chloride Carbon Dioxide Anion Gap BUN Creatinine Estimated GFR (MDRD) Glucose Calcium Magnesium Total Bilirubin AST ALT Alkaline Phosphatase Total Creatine Kinase Total Protein Albumin Globulin Albumin/Globulin Ratio Lipase TSH Urine Color YELLOW Urine Clarity CLEAR Urine pH 6.0 Ur Specific [place] 1.010 Urine Protein NEGATIVE Urine Glucose (UA) NEGATIVE Urine Ketones NEGATIVE Urine Occult Blood TRACE-INTA Urine Nitrite NEGATIVE Urine Bilirubin NEGATIVE Urine Urobilinogen 0.2 (NORMAL) Ur Leukocyte Esterase NEGATIVE Ur Microscopic Review NOT INDICATED Urine Culture Comments NOT INDICATED Urine HCG, Qual NEGATIVE Salicylates Urine Opiates Screen NEGATIVE Ur Buprenorphine Scrn NEGATIVE Ur Oxycodone Screen NEGATIVE Urine Methadone Screen NEGATIVE Acetaminophen Ur Barbiturates Screen NEGATIVE Ur Tricyclics Screen NEGATIVE Ur Phencyclidine Scrn NEGATIVE Ur Amphetamine Screen NEGATIVE U Methamphetamines Scrn NEGATIVE U Benzodiazepines Scrn NEGATIVE Urine Cocaine Screen NEGATIVE U Cannabinoids Screen POSITIVE H Ur Drug Screen Comment CUTOFF CONC BELOW: Ethyl Alcohol SARS-CoV-2 (PCR) PD Medical Decision Making - ED course Complexity details: reviewed results, re-evaluated patient, considered differential, d/w patient ED course: Patient tells me she would prefer inpatient treatment/stabilization for her mental health issues (suicidality, depression, insomnia, auditory and visual hallucinations). MHE-oriented tests undertaken, the results of which have allowed me to medically clear her for telepsychiatric consult which is then obt ained. 21:15 Patient is now crying, obvious distress appearing anxious, holding hands to her ears and tells me "the voices are telling me to leave". She is given 5mg TL zyprexa. Patient underwent went telepsychiatric consultation and the recommendation is inpatient treatment for mental health stabilization. Eventually, a bed was found to be available at [facility] and patient is transferred to [facility]. Departure - Departure Disposition: 65 Psych Hosp/Unit DC/Xfer Clinical Impression: Suicidal ideation, Depression, Hallucinations Condition: Stable
[2023-10-06 20:30] LABS: BASOPHILS # (AUTO) 0.1 10^3/uL (0.0-0.1); BASOPHILS % (AUTO) 0.7 %; EOSINOPHILS # (AUTO) 0.1 10^3/uL (0.0-0.7); EOSINOPHILS % (AUTO) 0.7 %; HCT - HEMATOCRIT 37.9 % (37.0-47.0); HGB - HEMOGLOBIN 13.4 g/dL (12.0-16.0); LYMPHOCYTES # (AUTO) 2.3 10^3/uL (1.5-3.5); LYMPHOCYTES % (AUTO) 34.1 %; MEAN CORPUSCULAR HEMOGLOBIN 31.9 pg (27.0-31.0); MEAN CORPUSCULAR HGB CONC 35.4 g/dL (32.0-36.0); MEAN CORPUSCULAR VOLUME 90.2 fL (81.0-99.0); MEAN PLATELET VOLUME 9.4 fL (7.9-10.8); MONOCYTES # (AUTO) 0.4 10^3/uL (0.0-1.0); MONOCYTES % (AUTO) 5.5 %; NEUTROPHILS % (AUTO) 58.9 %; PLT - PLATELET COUNT 249 10^3/uL (130-450); RED CELL DISTRIBUTION WIDTH 11.6 % (12.0-15.0); WHITE BLOOD COUNT 6.8 x10^3/uL (4.8-10.8)
[2023-10-06 20:47] LABS: BILIRUBIN,URINE NEGATIVE (NEGATIVE); GLUCOSE, URINE (UA) NEGATIVE (NEGATIVE); KETONES,URINE (UA) NEGATIVE (NEGATIVE); LEUKOCYTE ESTERASE, URINE NEGATIVE (NEGATIVE); NITRITE,URINE NEGATIVE (NEGATIVE); OCCULT BLOOD,URINE TRACE-INTA (NEGATIVE); PROTEIN,URINE NEGATIVE (NEGATIVE); UROBILINOGEN,URINE 0.2 (NORMAL) E.U./dL (NORMAL)
[2023-10-06 20:51] LABS: CLARITY,URINE CLEAR (CLEAR); HCG UR QUAL NEGATIVE
[2023-10-06 20:55] LABS: AMPHETAMINE SCREEN,URINE NEGATIVE (NEGATIVE); BARBITURATE SCREEN,UR NEGATIVE (NEGATIVE); BENZODIAZEPINES SCREEN, URINE NEGATIVE (NEGATIVE); BUPRENORPHINE SCREEN, URINE NEGATIVE (NEGATIVE); COCAINE SCREEN URINE NEGATIVE (NEGATIVE); METHADONE SCREEN, URINE NEGATIVE (NEGATIVE); METHAMPHETAMINES SCREEN, URINE NEGATIVE (NEGATIVE); OPIATE SCREEN, URINE NEGATIVE (NEGATIVE); OXYCODONE SCREEN, URINE NEGATIVE (NEGATIVE); THC CANNABINOID SCREEN, URINE POSITIVE (NEGATIVE); TRICYCLIC ANTIDEPRESSANT,URINE NEGATIVE (NEGATIVE)
[2023-10-06 20:56] LABS: ACETAMINOPHEN 0.7 ug/mL; ALBUMIN 4.4 g/dL (3.2-5.5); ALBUMIN/GLOBULIN RATIO 2.3 (1.0-2.2); ALKALINE PHOSPHATASE 37 IU/L (42-121); ALT ALANINE AMINOTRANSFERASE 10 IU/L (10-60); AST ASPARTATE AMINOTRANSFERASE 13 IU/L (10-42); BILIRUBIN,TOTAL 0.8 mg/dL (0.2-1.0); BUN - BLOOD UREA NITROGEN 9 mg/dL (6-20); CARBON DIOXIDE - CO2 28 mmol/L (21-32); CHLORIDE 103 mmol/L (101-111); CK- CREATINE KINASE 66 IU/L (30-223); CREATININE 0.6 mg/dL (0.6-1.3); ETOH - ETHANOL < 10.0 mg/dL; GFR - MDRD 112 (>89); GLUCOSE 93 mg/dL (74-104); LIPASE 31 U/L (11-82); MAGNESIUM 1.6 mg/dL (1.7-2.3); POTASSIUM 3.5 mmol/L (3.5-4.5); SODIUM 138 mmol/L (135-145); TOTAL PROTEIN 6.3 g/dL (6.4-8.9)
[2023-10-06 21:01] LABS: SALICYLATE < 1.5 mg/dL
[2023-10-06] MEDS: OLANZapine ODT 5 MG TABLET TL STA (21:19)
--- NOTE | 2023-10-06 21:40 | TELEPSYCH PHYS NOTE ---
[facility] Telepsych Consult Consult Date: 10/06/23 Name of Referring Provider:: Greene Reason for Consult: suicidal/hallucinations - Suicide Risk Sreening (ASQ Tool) In the past few weeks, have you wished you were ?: Yes In the past few weeks, have you felt that you or your family would be better off if you were ?: Yes In the past week, have you been having thoughts about killing yourself?: Yes Have you ever tried to kill yourself?: No - Assessment Language: Cuban Insurance Billing Specialist Required: No Cultural, Druze or Spiritual Preferences: none noted Chief Complaint: "I am hearing voices and I can't take it anymore." History of Present Illness: 38 y/o female presents to ED for auditory and visual hallucinations and SI. Patient reports she has been "hearing voices and seeing people" for the past several weeks. She states they have intensified and "she can't take it anymore." She states she "doesn't want to be alive." She is clearly distraught. She is tearful and states she wants to . She reports persecutory/command hallucinat ions telling her to hurt herself. She states she has not eaten for over 48 hours. She reports hx of anorexia and denies treatment. She reports she was on medications in the past "about seven years ago" but quit taking her medications because she felt better. She states she has been sleeping more and does not want to get out of bed. Patient endorses continued thoughts of suicide, she denies HI. She endorses AH and VH. Suicide Ideation - Homicide Ideation - Self Harm: Endoreses SI, denies HI Psychiatric History - Treatment History: hx of previous inpatient hospitalization for SI Community Resources Accessed: none Family Psych History/ History of suicide: unknown Nutritional Status: Eating habits/behaviors that may be indicators of an eating disorder (patient reports hx of anorexia) - Medication & Allergies Home Medications: Ambulatory Orders Medication Instructions Recorded Confirmed Gabapentin [Gralise] 1 each PO 07/04/19 Hydrocodone/Acetaminophen 1 - 2 each PO Q6H PRN #7 tablet 07/04/19 [Hydrocodon-Acetaminophen 5-325] Albuterol Sulfate [Proair Hfa 1 - 2 puffs INH Q4H PRN 07/15/19 07/15/19 Inhaler] Gabapentin 800 mg PO QID 07/15/19 07/15/19 Medroxyprogesterone Acetate 150 mg IM ONCE 07/15/19 07/15/19 [Depo-Provera] Ondansetron Odt [Zofran] 4 mg TL Q6H PRN #10 tablet 07/15/19 hydrOXYzine HCL [Hydroxyzine HCl] 25 mg PO DAILY PM 07/15/19 07/15/19 HYDROcod/ACETAM 5/325 [[place] 5/325] 1 - 2 ea PO Q6H PRN #14 tablet 10/07/20 predniSONE [Deltasone] 10 mg PO [id number] #42 tab 10/07/20 traMADol [Ultram] 50 - 100 mg PO Q6H PRN #20 tablet 10/13/20 Amox/Clav 875/125 [Augmentin] 1 each PO Q12H #20 tablet 09/23/21 EPINEPHrine [Epinephrine] 0.3 mg IJ ONCE PRN #2 each 03/20/23 Lidocaine Viscous 2% [Xylocaine 5 ml MM Q4H PRN #100 ml 03/20/23 Viscous 2%] Omeprazole Magnesium 20 mg PO DAILY #14 tab 03/20/23 Allergies/Adverse Reactions: Allergies Allergy/AdvReac Type Severity Reaction Status Date / Time peanut Allergy Anaphylaxis Verified 10/06/23 19:56 pineapple Allergy Rash Verified 10/06/23 19:56 - Drug & Alcohol History Does patient have Drug/ETOH history or addictive behavior?: No Use: Uses substance without health or social issues: NONE Abuse: Recurrent use of substance despite neg consequences: NONE Dependence: Experiences withdrawal or developed tolerances: NONE - Trauma Does the patient have a history of trauma, abuse, neglect or explotation?: No - Personal Information Does the patient have a history or present tendencies for violence?: None Services History: none Does patient have any Legal Charges or Investigations?: No Environment & Living Situation - Social, Peer-Group (Note): At home Environment & Living Situation - Social, Peer-Group (Notes): Lives in own home with son and daughter Marital Status - Family Circumstances: Stressors - Financial Concerns: "my mental health" Education: unknown 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 Collateral - Interdisciplinary Input: ED record review - Medical History Psychiatric: reports: Depression, Anxiety, Bipolar disorder, Eating disorder Neurological: reports: None, Seizure disorder Eyes, Ears, Nose, Throat: reports: None Cardiovascular: reports: None, Arrhythmia Respiratory: reports: Asthma Gastrointestinal: reports: None, Other Urinary: reports: None GLASS SMOOTHER: reports: None Musculoskeletal: reports: Fibromyalgia, Other Skin: reports: None - Surgical History General: reports: Cholecystectomy, Appendectomy - Mental Status Exam Appearance and Attire: hospital scrubs, appears stated age Attitude and Behavior: anxious, tearful, cooperative Speech: rapid, pressured Affect and Mood: mood - anxious, depressed; affect - congruent, tearful Association and Thought Process: linear, goal-directed Thought Content: endorses SI, denies HI Perception: endorses AH and VH Sensorium, memory and orientation: awake, alert, oriented Intellectual - Cognitive functioning: average Insight and Judgement: insight - fair; judgment - fair Emotional and Behavioral Functioning: no agitation, anxious, tearful Ability to Self-Care: age appropriate - Personal Goals Short-term Goals: none noted - Risk/Protective Factors Risk Factors: Trigger events leading to humiliation, shame and/or despair Protective Factors / Internal: Identifies reasons for living Protective Factors / External: Responsibility to children - Plan Impression/Risk Assessment: 38 y/o female presents to ED for SI with command auditory hallucinations and visual hallucinations. Patient reports worsening symptoms over the past several weeks to the point that she "wants to ." Patient is anxious and tearful. She continues to endorse thoughts of suicide throughout assessment. She endorses AH and VH. Patient reports she has not been taking any mental health medications for the past seven years. Patient risk to self is elevated and recommend inpatient psychiatric hospitalization for safety, stabilization and medication management. Treatment - Therapy Recommendations: Mental health inpatient Pharmacological Recommendations: Recommend olanzapine 10 mg, IM given now - Time Spent & Provider Location Telepsych consultation conducted via videoconferencing: Yes List names and roles of persons who participated in consult: Skinny Fuller - Patient. Tami Velez, MSN, BOTTOM SAW OPERATOR, PMHNP- Telepsych Provider Location: remote Time Spent (Minutes): 60
[2023-10-07] MEDS: IBUPROFEN 600 MG TABLET PO STA ×2 (05:57→05:58)
[2023-10-07] MEDS: GABAPENTIN 400 MG CAPSULE PO STA (06:13)
[2023-10-07] MEDS: NICOTINE 21 MG PATCH TOP STA (06:22)
[2023-10-07] MEDS: ACETAMINOPHEN 325 MG TABLET PO STA (07:36)
[2023-10-07 07:37] VITALS: BP 108/76; O2SAT 100
== END 2023-10-07 07:49 ==
LOC: ED 19:43
DX: R45.851 Suicidal ideations (principal); R44.0 Auditory hallucinations; R44.1 Visual hallucinations; F32.A Depression, unspecified; F17.200 Nicotine dependence, unspecified, uncomplicated
CPT/HCPCS: 36415; 80053; 80143; 80179; 80306; 81003; 81025; 82077; 82550; 83690; 83735; 84443; 85025; 87635; 90834; 99284; 99285; A9270; Q3014; 81001; 87086